=== PATIENT | male | born 1945 | race Hispanic/Latino ===

== ENCOUNTER 2017-10-18 10:39 | Observation (INO) | payer OTHER ==
--- OUTSIDE RECORDS SUMMARY | 2017-10-18 10:42 | XMS REPORT | Clinical Summary ---
:1945 Author Organization [facility] Address [address] [place] [address] Care Team Providers Name Role Phone Leon Hall MD Primary Care Provider Allergies No Known Allergies Current Medications Prescription Sig. Disp. Refills Start Date End Date Status clopidogrel (PLAVIX) 75 05/15/2016 Active mg tablet finasteride (PROSCAR) 5 04/28/2016 Active mg tablet metFORMIN (GLUCOPHAGE) 06/20/2016 Active 500 mg tablet metoprolol succinate XL 05/13/2016 Active (TOPROL-XL) 100 mg 24 hr tablet ACCU-CHEK SOFTCLIX TEST ONCE A DAY 99 04/12/2016 Active LANCETS lancets pravastatin (PRAVACHOL) 05/13/2016 Active 80 MG tablet tamsulosin (FLOMAX) 0.4 04/28/2016 Active mg capsule,extended release 24hr levoFLOXacin (LEVAQUIN) Take 500 mg by Active 500 MG tablet mouth daily. nitroglycerin (NITROSTAT) Place 0.4 mg under Active 0.4 MG SL tablet the tongue every 5 (five) minutes as needed for chest pain. traMADol (ULTRAM) 50 mg Take 50 mg by mouth Active tablet every 6 (six) hours as needed for moderate pain. Active Problems Problem Noted Date Coronary artery disease involving [place] coronary artery of [place] heart 07/14 without angina pectoris Essential hypertension 07/14/2016 History of coronary artery stent placement 07/14/2016 Family History Medical History Relation Name Comments Coronary artery disease Father Relation Name Status Comments Father Social History Tobacco Use Types Packs/Day Years Used Date Never Assessed Alcohol Use Drinks/Week oz/Week Comments No Sex Assigned at Date Recorded Not on file Last Filed Vital Signs Not on file Plan of Treatment Health Maintenance Due Date Last Done Comments COLON CANCER SCREENING 1993 SHINGRIX VACCINE (#1) 1993 ZOSTER VACCINE 2003 PNEUMOCOCCAL POLYSACCHARIDE VACCINE AGE 65 AND OVER 01/18/2008 PNEUMOCOCCAL-13 01/18/2008 INFLUENZA VACCINE 12/13/2017 Results Not on fileafter 10/17/2016 Insurance Payer Benefit Plan / Group Subscriber ID Type Phone Address [employer] MEDICARE HU[employer]NA MEDICARE PPO/PFFS/ERS [facility] xxxxxxxxx PPO Home: [id number] [facility] [phone] [place] [phone]
[2017-10-18] MEDS ORDERED: ALBUTEROL 2.5 MG/3 ML NEB SOL ONE (11:07)
[2017-10-18 11:30] LABS: Absolute Lymphocytes (CBC) 1.2 K/uL (0.7-4.9); Absolute Monocytes 0.8 K/uL (0.1-1.3); Absolute Neutrophil 5.5 K/uL (1.8-8.0); Basophils % 0.7 % (0-1.3); Eosinophils % 1.5 % (0-4.4); Hematocrit 41.2 % (39.6-49.0); Lymphocytes % 15.4 % (15.3-44.8); MCH 32.5 pg (27.0-35.0); MCV 94.6 fL (80-100); MPV 8.7 fL (7.6-11.3); Monocytes % 11.1 % (3.3-12.3); RBC Red Blood Cell Count 4.36 M/uL (4.33-5.43)
--- NOTE | 2017-10-18 11:57 | RAD REPORT ---
EXAM DESCRIPTION: Ellie Pa And Lat (2 Views)10/18/2017 11:44 am CLINICAL HISTORY: Cough COMPARISON: 2016 FINDINGS: Extensive bilateral interstitial lung opacities are without significant change having the appearance of pulmonary fibrosis. The lungs appear clear of acute infiltrate. The heart is normal size IMPRESSION: No acute abnormalities displayed
[2017-10-18 12:23] LABS: BUN Blood Urea Nitrogen 19 mg/dL (6-20); Bicarbonate 26 mEq/L (21-31); Glucose Level 133 mg/dL (65-120); Potassium 3.8 mEq/L (3.6-5.0); Sodium Level 136 mEq/L (135-145)
--- NOTE | 2017-10-18 13:28 | RAD REPORT ---
EXAM DESCRIPTION: CT - Chest For Pe Angio - 10/18/2017 1:18 pm CLINICAL HISTORY: sob COMPARISON: 2016 TECHNIQUE: Dynamically enhanced axial 3 mm thick images of the chest were obtained during administra tion of <100> mL Isovue 370 IV contrast. Coronal and oblique reconstruction images were generated and reviewed. Exam utilizes a protocol for optimal evaluation of pulmonary arterial tree. All CT scans are performed using dose optimization technique as appropriate and may include automated exposure control or mA/KV adjustment according to patient size. FINDINGS: A pulmonary embolus is not seen. A thoracic aortic aneurysm is not noted. A pleural effusion is not seen. A pericardial effusion is not seen. Extensive honeycombing is present throughout the right lung. Moderate pulmonary fibrosis within the l eft lung is seen. Mild ground-glass opacities are present within the lungs bilaterally. Fatty infiltration liver is seen IMPRESSION: Negative for a pulmonary embolism. Pulmonary fibrosis Mild ground-glass opacities indicative of a mild alveolitis
--- NOTE | 2017-10-18 13:36 | EKG ---
Test Date: 2017-10-18 Test Time: 11:18:17 Equipment Analyst: KAY MEASUREMENT RESULTS: Intervals: Rate: 76 MI: 158 QRSD: 142 QT: 412 QTc: 463 Ava: P: 55 MI: 158 QRS: -45 T: -6 INTERPRETIVE STATEMENTS: Normal sinus rhythm Right bundle branch block Left anterior fascicular block Bifascicular block Abnormal ECG Compared to ECG 11/19/2015 22:15:22 Sinus tachycardia no longer present Bifascicular block still present Electronically Signed On 10-18-17 13:36:03 CDT by Linwood Henry
--- NOTE | 2017-10-18 14:13 | ER ---
Nurse's Notes [facility] Name: Grzegorz Long Age: 72 yrs Sex: Male : 1945 Arrival Date: 10/18/2017 Time: 10:44 Bed 7 Private MD: Leon Hall V Diagnosis: Dyspnea, unspecified;Alveolitis;Hypoxemia Presentation: 10/18 10:50 Presenting complaint: Patient states: Flu like symptoms since Monday. Transition of aj care: patient was not received from another setting of care. Onset of symptoms was October 14, 2017. Risk Assessment: Do you want to hurt yourself or someone else? Patient reports no desire to harm self or others. Care prior to arrival: None. 10:50 Method Of Arrival: Ambulatory aj 10:50 Acuity: DANN 3 aj Triage Assessment: 10:51 General: Appears in no apparent distress. comfortable, Behavior is calm, cooperative, aj appropriate for age. Pain: Denies pain. EENT: Reports nasal congestion nasal discharge. Neuro: Level of Consciousness is awake, alert, obeys commands, Oriented to person, place, time, situation, Appropriate for age. Respiratory: Reports shortness of breath cough that is Airway is patent Respiratory effort is even, unlabored, Respiratory pattern is symmetrical, tachypnea. Derm: Skin is intact, is healthy with good turgor, Skin is pink, warm \T\ dry. normal. Historical: - Allergies: 10:51 No Known Allergies; aj - Home Meds: 10:51 aspirin 81 mg Oral chew 1 tab once daily [Active]; Plavix 75 mg Oral tab 1 tab once aj daily [Active]; metformin 500 mg Oral tab 1 tab 2 times per day [Active]; pravastatin 80 mg Oral tab 1 tab once daily [Active]; Lopressor 100 mg Oral tab 1 tab once daily [Active]; - PMHx: 10:51 Diabetes - NIDDM; High Cholesterol; Hypertension; aj - PSHx: 10:51 Heart stents; aj - Immunization history:: Adult Immunizations up to date. - Social history:: Smoking status: Patient/guardian denies using tobacco. - Ebola Screening: : Patient negative for fever greater than or equal to 101.5 degrees Fahrenheit, and additional compatible Ebola Virus Disease symptoms Patient denies exposure to infectious person Patient denies travel to an Ebola-affected area in the 21 days before illness onset No symptoms or risks identified at this time. - Family history:: not pertinent. - Hospitalizations: : No recent hospitalization is reported. Screenin:30 Abuse screen: Denies threats or abuse. Denies injuries from another. Nutritional hb screening: No deficits noted. Tuberculosis screening: No symptoms or risk factors identified. Fall Risk Total Sood Fall Scale indicates Low Risk Score (25-44 pts). Fall prevention measures have been instituted. Side Rails Up X 2 Frequent Obs/Assesments occuring Family Present and informed to notify staff if they need to leave bedside As available Patient and Family Educated on Fall Prevention Program and strategies. Assessment: 11:00 General: Appears in no apparent distress. ill, Behavior is calm, cooperative. Pain: hb Denies pain. Neuro: Level of Consciousness is awake, alert, obeys commands, Oriented to person, place, time, situation. Cardiovascular: Heart tones S1 S2 present Capillary refill < 3 seconds Patient's skin is warm and dry. Respiratory: Reports shortness of breath cough that is non-productive, Airway is patent Trachea midline Respiratory effort is even, unlabored, Respiratory pattern is regular, symmetrical, Breath sounds are clear bilaterally. GI: No signs and/or symptoms were reported involving the gastrointestinal system. : No signs and/or symptoms were reported regarding the genitourinary system. EENT: No signs and/or symptoms were reported regarding the EENT system. Derm: No signs and/or symptoms reported regarding the dermatologic system. Skin is intact, is healthy with good turgor. Musculoskeletal: No signs and/or symptoms reported regarding the musculoskeletal system. 12:00 Reassessment: Patient appears in no apparent distress at this time. No changes from hb previously documented assessment. Patient and/or family updated on plan of care and expected duration. Pain level reassessed. Patient is alert, oriented x 3, equal unlabored respirations, skin warm/dry/pink. 13:00 Reassessment: Patient appears in no apparent distress at this time. No changes from hb previously documented assessment. Patient and/or family updated on plan of care and expected duration. Pain level reassessed. Patient is alert, oriented x 3, equal unlabored respirations, skin warm/dry/pink. 14:00 Reassessment: Patient appears in no apparent distress at this time. No changes from hb previously documented assessment. Patient and/or family updated on plan of care and expected duration. Pain level reassessed. Patient is alert, oriented x 3, equal unlabored respirations, skin warm/dry/pink. 15:00 Reassessment: Patient appears in no apparent distress at this time. No changes from hb previously documented assessment. Patient and/or family updated on plan of care and expected duration. Pain level reassessed. Patient is alert, oriented x 3, equal unlabored respirations, skin warm/dry/pink. 16:00 Reassessment: Patient appears in no apparent distress at this time. No changes from hb previously documented assessment. Patient and/or family updated on plan of care and expected duration. Pain level reassessed. Patient is alert, oriented x 3, equal unlabored respirations, skin warm/dry/pink. Vital Signs: 10:51 BP 116 / 68; Pulse 89; Resp 26; Temp 98.4; Pulse Ox 88% on R/A; Weight 77.11 kg; Height aj 5 ft. 6 in. (167.64 cm); 11:45 BP 117 / 67; Pulse 79; Resp 22; Pulse Ox 96% on 3 lpm NC; hb 12:48 BP 113 / 67; Pulse 87; Resp 21; Pulse Ox 96% on 3 lpm NC; hb 13:45 BP 114 / 61; Pulse 75; Resp 22; Pulse Ox 95% on 3 lpm NC; hb 14:33 BP 133 / 74; Pulse 83; Resp 23; Pulse Ox 97% on 3 lpm NC; hb 15:30 BP 115 / 72; Pulse 82; Resp 21; Pulse Ox 97% on 3 lpm NC; hb 16:25 BP 125 / 72; Pulse 81; Resp 22; Pulse Ox 99% on R/A; hb 10:51 Body Mass Index 27.44 (77.11 kg, 167.64 cm) aj ED Course: 10:44 Patient arrived in ED. sb2 10:44 Leon Hall MD is Private Physician. sb2 10:50 Triage completed. aj 10:51 Arm band placed on left wrist. Patient placed in waiting room, in a wheelchair, on aj oxygen, Patient notified of wait time. 10:54 Adam Tijerina MD is Attending Physician. rn 11:00 Patient has correct armband on for positive identification. Placed in gown. Bed in low hb position. Call light in reach. Side rails up X 1. 11:15 Initial lab(s) drawn, by me, sent to lab. First set of blood cultures drawn by me. 3 Inserted saline lock: 20 gauge in left antecubital area, using aseptic technique. Blood collected. 11:31 EKG done, by hospital laboratory technician. reviewed by Adam Tijerina MD. at1 11:34 Patient moved to radiology via wheelchair. jb2 11:39 XRAY Chest Pa And Lat (2 Views) In Process Unspecified. EDMS 11:39 X-ray completed. Patient tolerated procedure well. jb2 11:46 Patient moved back from radiology. jb2 12:08 Second set of blood cultures drawn by me, by venipuncture 23G to left ac. 3 12:11 Arthur Duncan, RN is Primary Nurse. saman 12:48 Radha Desouza, RN is Primary Nurse. hb 13:18 CT Chest For PE Angio In Process Unspecified. EDMS 13:18 CT completed. Patient tolerated procedure well. Patient moved to CT via stretcher. vr Patient moved back from CT. 14:12 Leon Hall MD is Hospitalizing Provider. rn 16:25 No provider procedures requiring assistance completed. Patient admitted, IV remains in hb place. Administered Medications: 11:10 Drug: Albuterol 2.5 mg Route: Inhalation; Outcome: 14:13 Decision to Hospitalize by Provider. rn 16:25 Admitted to Med/surg accompanied by nurse, room 413, with chart, Report called to ONEIL Majano 16:25 Condition: stable 16:25 Instructed on the need for admit, Demonstrated understanding of instructions. 16:33 Patient left the ED. Signatures: Dispatcher [employer] EDNH Valeria Ward, Ambrose Martinez RN 2 Adam Tijerina MD MD rn Davis, Victoria vr Valeria méndez, education specialist EKG Tat1 Radha Desouza RN RN hb Leal, Jah[place], [place] RN 3 Tonja Roberts2
--- NOTE | 2017-10-18 14:13 | EDPHYS ---
Physician Documentation [facility] Name: Grzegorz Long Age: 72 yrs Sex: Male : 1945 Arrival Date: 10/18/2017 Time: 10:44 Bed 7 Private MD: Leon Hall V ED Physician Adam Tijerina HPI: 10/18 11:30 This 72 yrs old Male presents to ER via Ambulatory with complaints of cough, rn sob, weak. 11:30 The patient has shortness of breath at rest, with light activity. Onset: The rn symptoms/episode began/occurred 3 day(s) ago. Duration: The symptoms are intermittent. The patient's shortness of breath is aggravated by exertion, light activity, talking, walking. Severity of symptoms: At their worst the symptoms were moderate in the emergency department the symptoms are unchanged. The patient has not experienced similar symptoms in the past. Reports went out of town, had a few days of diarrhea, began coughing with sob on exertion, no known lung problems, no oxygen at home, no fever, non-productive cough. . Historical: - Allergies: 10:51 No Known Allergies; aj - Home Meds: 10:51 aspirin 81 mg Oral chew 1 tab once daily [Active]; Plavix 75 mg Oral tab 1 tab once aj daily [Active]; metformin 500 mg Oral tab 1 tab 2 times per day [Active]; pravastatin 80 mg Oral tab 1 tab once daily [Active]; Lopressor 100 mg Oral tab 1 tab once daily [Active]; - PMHx: 10:51 Diabetes - NIDDM; High Cholesterol; Hypertension; aj - PSHx: 10:51 Heart stents; aj - Immunization history:: Adult Immunizations up to date. - Social history:: Smoking status: Patient/guardian denies using tobacco. - Ebola Screening: : Patient negative for fever greater than or equal to 101.5 degrees Fahrenheit, and additional compatible Ebola Virus Disease symptoms Patient denies exposure to infectious person Patient denies travel to an Ebola-affected area in the 21 days before illness onset No symptoms or risks identified at this time. - Family history:: not pertinent. - Hospitalizations: : No recent hospitalization is reported. ROS: 11:30 Constitutional: Negative for fever, and weight loss, Eyes: Negative for injury, pain, rn redness, and discharge, Neck: Negative for injury, pain, and swelling, Cardiovascular: Negative for chest pain, palpitations, and edema, Respiratory: + sob and cough Abdomen/GI: Negative for abdominal pain, nausea, vomiting, diarrhea, and constipation, Back: Negative for injury and pain, MS/Extremity: Negative for injury and deformity, Skin: Negative for injury, rash, and discoloration, Neuro: Negative for headache, numbness, tingling, and seizure. Exam: 11:30 Constitutional: This is a well developed, well nourished patient who is awake, alert, rn and in no acute distress. Head/Face: Normocephalic, atraumatic. Eyes: Pupils equal round and reactive to light, extra-ocular motions intact. Lids and lashes normal. Conjunctiva and sclera are non-icteric and not injected. Cornea within normal limits. Periorbital areas with no swelling, redness, or edema. ENT: no stridor Cardiovascular: Regular rate and rhythm with a normal S1 and S2. No gallops, murmurs, or rubs. Normal PMI, no JVD. No pulse deficits. Respiratory: + mild tachypnea, no wheezing Abdomen/GI: Soft, non-tender, with normal bowel sounds. No distension or tympany. No guarding or rebound. No evidence of tenderness throughout. MS/ Extremity: Pulses equal, no cyanosis. Neurovascular intact. Full, normal range of motion. Equal circumference. Neuro: Awake and alert, GCS 15, oriented to person, place, time, and situation. Cranial nerves II-XII grossly intact. Motor strength 5/5 in all extremities. Sensory grossly intact. Vital Signs: 10:51 BP 116 / 68; Pulse 89; Resp 26; Temp 98.4; Pulse Ox 88% on R/A; Weight 77.11 kg; Height aj 5 ft. 6 in. (167.64 cm); 11:45 BP 117 / 67; Pulse 79; Resp 22; Pulse Ox 96% on 3 lpm NC; hb 12:48 BP 113 / 67; Pulse 87; Resp 21; Pulse Ox 96% on 3 lpm NC; hb 13:45 BP 114 / 61; Pulse 75; Resp 22; Pulse Ox 95% on 3 lpm NC; hb 14:33 BP 133 / 74; Pulse 83; Resp 23; Pulse Ox 97% on 3 lpm NC; hb 15:30 BP 115 / 72; Pulse 82; Resp 21; Pulse Ox 97% on 3 lpm NC; hb 16:25 BP 125 / 72; Pulse 81; Resp 22; Pulse Ox 99% on R/A; hb 10:51 Body Mass Index 27.44 (77.11 kg, 167.64 cm) aj MDM: 10:54 Patient medically screened. rn 14:11 Differential diagnosis: pneumonia, pulmonary edema, reactive airway disease. Data rn reviewed: vital signs, nurses notes, lab test result(s), radiologic studies, CT scan, plain films, and as a result, I will admit patient. Counseling: I had a detailed discussion with the patient and/or guardian regarding: the historical points, exam findings, and any diagnostic results supporting the discharge/admit diagnosis, lab results, radiology results, the need for further work-up and treatment in the hospital. Response to treatment: the patient's symptoms have mildly improved after treatment, and as a result, I will admit patient. Admission orders: after a detailed discussion of the patient's condition and case, the admit orders are written by me. ED course: Pt with oxygen requirement and still with tachypnea, will admit to Dr. Hall. . 10/18 11:02 Order name: Blood Culture Adult (2) rn 10/18 11:02 Order name: BMP; Complete Time: 12:24 rn 10/18 11:02 Order name: XRAY Chest Pa And Lat (2 Views); Complete Time: 11:59 rn 10/18 11:02 Order name: BNP; Complete Time: 11:52 rn 10/18 11:02 Order name: CBC with Diff; Complete Time: 11:52 rn 10/18 11:02 Order name: Procalcitonin; Complete Time: 12:24 rn 10/18 11:02 Order name: EKG; Complete Time: 11:03 rn 10/18 11:02 Order name: Cardiac monitoring; Complete Time: 11:20 rn 10/18 11:02 Order name: EKG - Nurse/Tech; Complete Time: 11:19 rn 10/18 11:02 Order name: IV Saline Lock; Complete Time: 11:10 rn 10/18 11:02 Order name: Labs collected and sent; Complete Time: 11:19 rn 10/18 11:02 Order name: O2 Per Protocol; Complete Time: 11:10 rn 10/18 12:52 Order name: CT Chest For PE Angio; Complete Time: 13:29 rn 10/18 11:02 Order name: O2 Sat Monitoring; Complete Time: 11:10 rn Administered Medications: 11:10 Drug: Albuterol 2.5 mg Route: Inhalation; hb Disposition: 10/18/17 14:13 Hospitalization ordered by Leon Hall for Inpatient Admission. Preliminary diagnosis are Dyspnea, unspecified, Alveolitis, Hypoxemia. - Bed requested for Telemetry/MedSurg (Inpatient). - Status is Inpatient Admission. hb - Condition is Stable. - Problem is new. - Symptoms have improved. UTI on Admission? No Signatures: Dispatcher [employer] EDMini John RN Valeria Solis RN RN aj Nieto, Roman, MD MD rn Baxter, Heather, RN RN Corrections: (The following items were deleted from the chart) 15:03 14:13 Hospitalization Ordered by Leon Hall MD for Inpatient Admission. Preliminary dw diagnosis is Dyspnea, unspecified; Alveolitis; Hypoxemia. Bed requested for Telemetry/MedSurg (Inpatient). Status is Inpatient Admission. Condition is Stable. Problem is new. Symptoms have improved. UTI on Admission? No. rn 16:33 15:03 10/18/2017 14:13 Hospitalization Ordered by Leon Hall MD for Inpatient hb Admission. Preliminary diagnosis is Dyspnea, unspecified; Alveolitis; Hypoxemia. Bed requested for Telemetry/MedSurg (Inpatient). Status is Inpatient Admission. Condition is Stable. Problem is new. Symptoms have improved. UTI on Admission? No. dw
[2017-10-18] MEDS ORDERED: ONDANSETRON 4 MG/2 ML VIAL IV PRN (17:07)
[2017-10-18 17:43] VITALS: BMI 27.4
[2017-10-18] MEDS: METHYLPREDNISOLONE 40 MG INJ IV SCH ×2 (17:51→23:46)
[2017-10-18] MEDS: CEFTRIAXONE/SWI 1gm 1 GM/10 ML SYR IVP SCH (17:51)
[2017-10-18] MEDS ORDERED: GLUCAGON 1 MG/VIAL IM PRN (19:26)
[2017-10-18] MEDS ORDERED: D50W 25 GM/50 ML SYRINGE IV PRN (19:26)
[2017-10-18] MEDS: ALBUTEROL 2.5 MG/3 ML NEB SOL NEB SCH (19:35)
[2017-10-18] MEDS: INSULIN -REGULAR HUMAN 50 UNIT/0.5 ML ML SQ SCH (21:00)
[2017-10-19] MEDS: ALBUTEROL 2.5 MG/3 ML NEB SOL NEB SCH ×2 (02:08→07:35)
[2017-10-19] MEDS: METHYLPREDNISOLONE 40 MG INJ IV SCH ×2 (06:14→11:37)
[2017-10-19] MEDS: INSULIN -REGULAR HUMAN 50 UNIT/0.5 ML ML SQ SCH ×2 (07:30→11:37)
[2017-10-19] MEDS ORDERED: METFORMIN HCL 500 MG TAB PO SCH (08:00)
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
[2017-10-19] MEDS: CEFTRIAXONE/SWI 1gm 1 GM/10 ML SYR IVP SCH (08:37)
[2017-10-19] MEDS ORDERED: ATORVASTATIN 10 MG TAB PO SCH (09:00)
[2017-10-19] MEDS ORDERED: FINASTERIDE 5 MG TAB PO SCH (09:00)
[2017-10-19] MEDS ORDERED: CLOPIDOGREL 75 MG TABLET PO SCH (09:00)
[2017-10-19] MEDS ORDERED: ASPIRIN 81 MG CHEWABLE TABLET PO SCH (09:00)
[2017-10-19] MEDS ORDERED: METOPROLOL TAR 50 MG TAB PO SCH (09:00)
[2017-10-19 12:06] VITALS: BP 139/66; TEMP 98.2
[2017-10-19 12:31] VITALS: O2SAT 100
--- NOTE | 2017-10-19 13:07 | P.SSS ---
Patient History Date of Service: 10/19/17 Reason for admission: NAUSE AND VOMITING History of Present Illness: MR. MONTESINOS IS A DIABETIC WITH CAD AND PULMONARY FIBROSIS. HE TOLD ME THAT HE ATE OLD FOOD AFTER 3 DAYS ON TABLE IN [place]. GOT SICK WITH NAUSEA AND VOMITING AND HE IS WELL NOW. IT SEEMS LIKE ALL 3 DOCTORS GOT DIFF STORY. ER MD CALLED ME ABOUT DYSPNEA AND CT SCAN. DR. LINO WRITES ABOUT CHEST PAIN. IN ANY CASE HE IS WELL NOW BACK TO BASELINE. Allergies No Known Allergies Allergy (Verified 10/18/17 17:17) Home Medications: Aspirin Chewable [Aspirin Chewable*] 81 mg PO DAILY 12/12/14 Metformin HCl [Glucophage*] 500 mg PO BIDWM 12/12/14 Metoprolol Tartrate [Lopressor*] 100 mg PO DAILY 12/12/14 Pravastatin [Pravachol*] 80 mg PO DAILY 12/12/14 Clopidogrel Bisulfate [Plavix] 75 mg PO DAILY 11/21/15 Finasteride [Proscar] 5 mg PO DAILY 10/18/17 Tamsulosin [Flomax] 0.4 mg PO BEDTIME 10/18/17 - Past Medical/Surgical History Has patient received pneumonia vaccine in the past: Yes Diabetic: Yes -: High Cholesteral -: HTN -: Arthritis -: diabetes -: prostate problems -: Pulmonary fibrosis -: Heart Stents -: Benign neck tumer - Family History Brother -: Hypertension, Liver disease Sister -: Hypertension Father -: Heart disease, Stroke Mother -: Cancer - Social History Smoking Status: Former smoker Alcohol use: No CD- Drugs: No Caffeine use: Yes Place of Residence: Home Review of Systems 10-point ROS is otherwise unremarkable Physical Examination - Vital Signs Temperature: 98.2 F Blood Pressure: 139/66 Pulse: 96 Respirations: 16 Pulse Ox (%): 95 - Physical Exam General: Alert, In no apparent distress HEENT: Atraumatic, PERRLA, Mucous membr. moist/pink, EOMI, Sclerae nonicteric Neck: Supple, 2+ carotid pulse no bruit, No LAD, Without JVD or thyroid abnormality Respiratory: Clear to auscultation bilaterally, Normal air movement Cardiovascular: Regular rate/rhythm, Normal S1 S2 Gastrointestinal: Normal bowel sounds, No tenderness Musculoskeletal: No tenderness Integumentary: No rashes Neurological: Normal gait, Normal speech, Normal strength at 5/5 x4 extr, Normal tone, Normal affect Lymphatics: No axilla or inguinal lymphadenopathy - Diagnosis (Problem(s)) (1) Food poisoning Status: Acute Plan: CLINICALLY WELL DC HOME STABLE. NO DYSPNEA. Qualifiers: Encounter type: initial encounter (2) Pulmonary fibrosis Status: Chronic Plan: STABLE, NO CHANGES, NO SS ON DAILY BASIS. - Disposition Condition: GOOD
[2017-10-19] MEDS ORDERED: TAMSULOSIN 0.4 MG SR CAP PO SCH (21:00)
== END 2017-10-19 11:56 | disposition home or self-care (01) ==
LOC: ER 10:39 → ERHOLD 14:14 → INTOOBSV 14:14 → 4TH 16:03
PROVIDERS: ADMIT Internal Medicine; ATTEND Internal Medicine
DX: T62.94XA Toxic effect of unspecified noxious substance eaten as food, undetermined, initial encounter (principal); R11.2 Nausea with vomiting, unspecified; Y92.009 Unspecified place in unspecified non-institutional (private) residence as the place of occurrence of the external cause; J84.10 Pulmonary fibrosis, unspecified; E11.9 Type 2 diabetes mellitus without complications; I25.10 Atherosclerotic heart disease of native coronary artery without angina pectoris; Z95.5 Presence of coronary angioplasty implant and graft; Z79.82 Long term (current) use of aspirin; Z87.891 Personal history of nicotine dependence
CPT/HCPCS: 36415; 71046; 71275; 80048; 82962 ×3; 83880; 84145; 85025; 87040 ×2; 93005; 94640; 99285; G0378 ×2; J0696 ×2; J2920 ×4; Q9967

== ENCOUNTER 2018-06-16 13:30 | Inpatient (IN) | payer OTHER ==
--- OUTSIDE RECORDS SUMMARY | 2018-06-16 13:32 | XMS REPORT | Clinical Summary ---
:1945 Author Organization [facility] Address [address] [place] [address] Care Team Providers Name Role Phone Leon Hall MD Primary Care Provider Allergies No Known Allergies Medications Medication Sig Dispensed Refills Start Date End Date Status clopidogrel (PLAVIX) 75 0 05/15/2016 Active mg tablet finasteride (PROSCAR) 5 0 04/28/2016 Active mg tablet metFORMIN (GLUCOPHAGE) 0 06/20/2016 Active 500 mg tablet metoprolol succinate XL 0 05/13/2016 Active (TOPROL-XL) 100 mg 24 hr tablet ACCU-CHEK SOFTCLIX TEST ONCE A DAY 99 04/12/2016 Active LANCETS lancets pravastatin (PRAVACHOL) 0 05/13/2016 Active 80 MG tablet tamsulosin (FLOMAX) 0.4 0 04/28/2016 Active mg capsule,extended release 24hr levoFLOXacin (LEVAQUIN) Take 500 mg by 0 Active 500 MG tablet mouth daily. nitroglycerin Place 0.4 mg 0 Active (NITROSTAT) 0.4 MG SL under the tongue tablet every 5 (five) minutes as needed for chest pain. traMADol (ULTRAM) 50 mg Take 50 mg by 0 Active tablet mouth every 6 (six) hours as needed for moderate pain. Active Problems Problem Noted Date Coronary artery disease involving squaxin coronary artery of squaxin heart 07/14 without angina pectoris Essential hypertension 07/14/2016 History of coronary artery stent placement 07/14/2016 Family History Medical History Relation Name Comments Coronary artery disease Father Relation Name Status Comments Father Social History Tobacco Use Types Packs/Day Years Used Date Never Assessed Alcohol Use Drinks/Week oz/Week Comments No Sex Assigned at Date Recorded Not on file Job Start Date Occupation Industry Not on file Not on file Not on file Travel History Travel Start Travel End No recent travel history available. Last Filed Vital Signs Not on file Plan of Treatment Health Maintenance Due Date Last Done Comments COLON CANCER SCREENING 1993 SHINGLES VACCINES (1 of 2) 1993 PNEUMOCOCCAL POLYSACCHARIDE VACCINE AGE 65 AND OVER 01/18/2008 PNEUMOCOCCAL-13 01/18/2008 INFLUENZA VACCINE 12/13/2017 Results Not on fileafter 06/15/2017 Insurance Payer Benefit Plan / Group Subscriber ID Type Phone Address [employer] MED[employer]ARE [employer] MEDICARE PPO/PFFS/[facility] xxxxxxxxx PPO Advance Directives Patient has advance care planning documents on file. For more information, please contact:Barrie Castellano[address] [place] [id number]
--- OUTSIDE RECORDS SUMMARY | 2018-06-16 13:33 | XMS REPORT | Continuity of Care Document ---
:1945 Author Organization Interface Problems Problem Status Onset Classification Date Comments Source Date Reported LABS, F/U Active 05/24/19 [place] [address] [facility] FOLLOW UP/LABS Active 04/07/20 [place] [address] [facility] BEDDED Active 02/13/20 [facility] OUTPATIENT/ Medical IMAGED GUIDED Center TRANSAT HCC Active 01/31/[address] OUTPATIENT/Y 90 Active 01/20/20 [facility] PROCEDURE OF [address] [place] [address] HEPATOCELLU Center NEW PT CONSULT- Active 12/28/19 [facility] R26.2 - Active 05/11/20 [facility] "DIFFICULTY IN [address] [facility], NOT ELS" High blood Active Problem 06/04/2018 [facility] pressure [place], [facility] Brian Borderline Active Problem 06/04/2018 [facility] diabetes [place], [facility] Brian Knee pain, Resolved Problem 06/15/2018 [facility] bilateral Brian,Mis franko [facility] Asbestosis Active Problem 06/15/2018 [facility] Brian,Mis franko Neuro BPH (<span Active Problem 06/15/2018 [facility] ID="[id number] Brian,[facility] ">Confirmed</spa franko Neuro n>) Chest pain Resolved Problem 06/15/2018 [facility] Brian,Mis franko Neuro CAD (<span Active Problem 06/15/2018 [facility] ID="[id number] Brian,Mis ">Confirmed</spa franko Neuro n>) Prostate Resolved Problem 06/15/2018 [facility] irregularity Brian,Mis frakno Neuro Chronic GERD Active Problem 06/15/2018 [facility] Brian,Mis franko Neuro High blood Active Problem 06/15/2018 [facility] cholesterol Brian,Mis franko Neuro High blood Active Problem 06/15/2018 [facility] pressure [place],Nd raghu Neuro Borderline Active Problem 06/15/2018 [facility] diabetes [place],Nd raghu Neuro Liver mass Active Problem 06/15/2018 [facility] [place],Mis franko Neuro Myocardial Resolved Problem 06/15/2018 [facility] infarction Kristi Torres [facility] Medications Medication Details Route Status Patient Ordering Order Source Instructions Provider Date Allergies, Adverse Reactions, Alerts Substance Category Reaction Severity Reaction Status Date Comments Source type Reported Immunizations Immunization Date Given Site Status Last Updated Comments Source Results Order Name Results Value Reference Date Interpretation Comments Source Range Spine Spine EXAM: MRI LUMBAR SPINE WITH AND WITHOUT CONTRAST 06/02 - [facility] lumbar /2018 - Brian w/wo w/wo This report was dictated by a Silk Examiner/Fellow/ Physician Care Support Representative. I have personally contrast contrast reviewed the images as well as the interpretation and agree with the findings. MRI MRI DATE: 06/02/2018 at 0749 hours Read by: Nilo Medina MD Resident/Fellow/Physician Care Support Representative: Nilo Medina MD Dictated Date/time: 06/04/18 09:07 Electronically Signed by: Hollie Almonte MD 06/04/18 14:58 FINAL REPORT INDICATION: " - C22.0 Liver cell carcinoma" ADDITIONAL INFORMATION: Low back pain, bilateral leg pain through the extremity to the bottom of the feet. COMPARISON: CT abdomen on 04/02/[address] abdomen/pelvis on 11/03/2017. TECHNIQUE: Multiplanar, multisequence MR imaging of the lumbar spine with and without contrast. IV contrast: 15 mL of Dotarem. FINDINGS: The inferior most lumbar type vertebral body is referred to L5. There is a 5 mm T1/T2 hypointense focus near the inferior endplate of L5 which demonstrates enhancement on postcontrast imaging. Vertebral body heights are well maintained. The marrow signal is within normal limits. No focal osseous lesion. The conus medullaris is normal in size and signal, and terminates at L1- L2. The included retroperitoneal structures are unremarkable. The paraspinal soft tissues are normal. Evaluation of the individual levels: T12-L1: Diffuse disc bulge with mild flattening of the ventral thecal sac. No neural foraminal stenosis. L1-L2: Asymmetric disc bulge at the ventral disc and slightly into the bilateral foraminal zone without nerve or compression. No mass effect thecal sac at this level. L2-L3: Diffuse disc bulge mild narrowing of the thecal sac. No exiting nerve root or cauda equina compression. A Schmorl's nodes seen in the superior endplate of L3. Facet arthropathy is present. L3-L4: Diffuse disc bulge results in moderate stenosis of the thecal sac and clumping of the cauda equina nerve roots. Moderate bilateral neuroforaminal narrowing, slightly worse on the left. The disc a buts the exiting left L3 nerve root without impingement. No mass effect on the exiting right L3 nerve root. Facet arthropathy is present. L4-L5: There is severe facet arthropathy resulting in grade 2 degenerative anterolisthesis and uncovering of the disc with superimposed diffuse disc bulge , obliterating the CSF space. There is severe ca uda equina compression and flattening of the bilateral exiting L4 nerve roots, worse on the left. L5-S1: Diffuse disc bulge with moderate narrowing of the thecal sac and abutment of the traversing S1 nerve roots. No mass effect on the exiting L5 nerve roots. IMPRESSION: 1. Severe facet arthropathy at L4-L5 results in grade 2 degenerative anterolisthesis as well as severe spinal canal and neuroforaminal stenosis, with mass effect on the cauda equina nerve roots and both exiting L4 nerve roots. 2. A 5 mm enhancing focus near the inferior endplate of L5 is indeterminate but favored to be of benign etiology, with malignancy felt to be a less likely possibility. A bone scan can be considered for further evaluation. Abdomen Abdomen EXAM: ACUTE ABDOMINAL SERIES WITH CHEST 1 VIEW 05/04 [facility] acute acute /2017 - [place] series w series w chest 1 chest 1 view DX view DX DATE: 05/04/2018 12:54 OCEANOGRAPHER PHYSICAL Read by: Aaron Tran MD Dictated Date/time: 05/04/18 13:30 Electronically Signed by: Aaron Tran MD 05/04/18 13:35 FINAL REPORT INDICATION: - 73 y/o M with h/o constipation, pls r/o obstruction,K59.00 Constipation, unspecified ADDITIONAL INFORMATION: None. COMPARISON: CT abdomen 04/02/2018 TECHNIQUE: Frontal upright and supine images of the abdomen and 1 view of the chest. Total images=4. FINDINGS: Lines and tubes: None. Lower thorax: Low lung volumes with accentuated vascular markings and bibasilar opacities which may represent atelectasis/aspiration with underlying fibrotic changes of the lung bases better seen on prior CT exam. Bowel: No definite free air beneath the hemidiaphragm in the upright image. Gaseous distention of the colon without significant dilatation. No distal colonic dilatation. Moderate stool within the ascending colon. Small amount of rectal gas. Nondilated small bowel gas pattern. Solid organs: Hepatic metastases better seen on prior CT exam. Calcifications: No abnormal calcifications found. Bones: Degenerative changes of the thoracolumbar spine. Vascular calcifications. IMPRESSION: 1. No obstructive bowel gas pattern. 2. Moderate stool burden. Abd Liver Abd Liver EXAM: CT ABDOMEN WITHOUT AND WITH CONTRAST 04/02 - [facility] Protocol Protocol /2017 - Brian w/wo IV w/wo IV contrast contrast CT CT DATE: 04/02/2018 at 1238 hours Read by: Major Anthony MD Dictated Date/time: 04/02/18 14:40 Electronically Signed by: Major Anthony MD 04/02/18 15:04 FINAL REPORT INDICATION: 73-year-old with hepatocellular carcinoma status post Y-90 treatment ADDITIONAL INFORMATION: None. COMPARISON: 11/03/2017 at 1234 hours. TECHNIQUE: Volumetric CT abdomen is acquired both prior to and following intravenous contrast, in precontrast, arterial, portal venous and delayed phases of enhancement, per the dynamic liver protocol. Axial, sagittal and coronal images are provided. IV contrast: 150 mL of Omnipaque 300 Enteric contrast: None. DLP: 2650.11 mGy-cm FINDINGS: Lines, tubes and hardware: None. Lower thorax: * Coronary artery calcifications. * Unchanged bibasilar fibrosis. Liver: Craniocaudal length: 17.3 cm. Density: Normal. Surface: Normal. Hepatic masses: * Irregularly-shaped right hepatic lobe tumor involving segments 7 and 8 demonstrates areas of necrosis, as well as areas of persistent enhancement/ viable tumor. As a whole, the involved area is 7.1 x 6.7 x 6.6 cm, previously 5.8 x 5.7 x 4.4 cm when measured in similar fashion. Largest focus of tumoral enhancement is approximately 6.8 x 4.6 x 4.3 cm (, 601/62). Pseudocapsular enhancement is also noted on delayed images. * Nonspecific 0.6 cm focus of arterial hyperenhancement is identified in the posterior aspect of segment 6 without associated washout. * Calcified granuloma. Non-enhancing/cystic hepatic lesions: None. Hepatic vessels: Hepatic arterial anatomy: Conventional. Portal vein: Patent. Caliber: 1.4 cm Portosystemic collaterals: None. Hepatic, splenic and superior mesenteric veins, and IVC: Patent. Biliary tree: No intra- or extrahepatic biliary ductal dilation. Gallbladder: Gallstones identified. No inflammation. Pancreas: Unchanged pancreatic atrophy. Spleen: * Normal size. * Unchanged granulomata. Adrenals: Normal. Kidneys and ureters: Normal. Gastrointestinal tract: Right paraesophageal mass is difficult to compare as it is incompletely visualized, but appears similar to prior exam. Stomach: Normal. Small bowel: Normal. Colon: Normal. Peritoneum, mesentery and retroperitoneum: No free air, ascites or loculated fluid. Lymph nodes: Regional lymph nodes are unchanged. Extrahepatic vasculature: Aorta and branches: Normal. IVC and veins: Normal. Bones: No acute abnormality. Soft tissues: Normal. IMPRESSION: 1. Increased size of right hepatic mass with areas of necrosis and areas of persistent viable tumor, as detailed above. LR-TR (viable). 2. Likely unchanged right paraesophageal mass. 3. Unchanged regional lymph nodes. 4. Cholelithiasis. Liver Liver EXAM: [facility] Static 02/16 [facility] SPECT [facility] SPECT - Medical EXAM: [facility] SPECT[facility]CT Center Read by: Diana Meza MD Dictated Date/time: 02/16/18 15:05 DATE: 02/16/2018 Electronically Signed by: Diana Meza MD 02/16/18 15:27 FINAL REPORT INDICATION: Hepatocellular carcinoma. COMPARISON: Liver SPECT 02/01/2018 TECHNIQUE: Yttrium-90 Thera-spheres were administered selectively into the right and left hepatic artery branches supplying the tumor mass in the right liver. A total dose of 2.34 GBq was administered through the hepatic arterial catheter aseptically without complications. This was followed by the acquisition of static images of the abdomen as well as SPECT images of the liver. FINDINGS: Intense tracer accumulation in the tumor mass in the right liver. There is no evidence of extrahepatic organ perfusion and no significant shunting to the lungs. IMPRESSION: Good localization of Yttrium 90 Thera-spheres in the right hepatic tumor mass with no evidence of extrahepatic organ perfusion or lung shunting. Radiorx TX Radiorx TX EXAM: [facility] Radiopharmaceutical therapy, intra-arterial particulate 02/16 [facility] Intra Intra - Medical Arterial Arterial Center NM NM DATE: 02/16/2018 12:00 PM CDT Read by: Diana Meza MD Dictated Date/time: 02/16/18 15:18 Electronically Signed by: iDana Meza MD 02/16/18 15:26 FINAL REPORT INDICATION: - Y-90. Hepatocellular carcinoma. COMPARISON: Liver SPECT 02/01/2018 and 02/16/2018. TECHNIQUE: Yttrium-90 Thera-spheres were administered selectively into the both right and left hepatic artery branches supplying the tumor mass the liver. The dose of 0.77 GBq was administered via left hepatic art gonzález and 1.57 GBq in the right hepatic artery. A total dose of 2.34 GBq was administered, without immediate complication. FINDINGS: Intra-arterial administration of Yttrium 90 Thera-spheres in the right lobe of the liver. IMPRESSION: Successful intra-arterial administration of 1.57 GBq Yttrium 90 Thera- spheres to the tumor mass in the right liver. Angiogram Angiogram PROCEDURE: Hepatic radioembolization - Radioisotope administration 02/16 [facility] visceral visceral - Medical artery artery This report was dictated by a Silk Examiner/ Fellow. I have personally reviewed the images as Center initial VR initial VR well as the Resident's interpretation and agree with the findings. Procedural Personnel Read by: Ismael eKlly MD Resident: Ismael Kelly MD Dictated Date/time: 02/16/18 13:41 Attending physician(s): Damian Stevens MD Electronically Signed by : Damian Steevns MD 02/19/18 15:12 FINAL REPORT Fellow physician(s): Robin PIZARRO Resident physician(s): None Advanced practice provider(s): None Authorized user: Same as attending physician above Pre-procedure diagnosis: Hepatocellular carcinoma Post-procedure diagnosis: Same Indication: Radiation segmentectomy for tumor control Additional clinical history: None Vascular invasion: None Complications: No immediate complications. IMPRESSION: Hepatic angiography demonstrates was applied through the replaced left hepatic artery. All of the tumor was visualized through injection of the segment VII branch of the right hepatic artery. Y 90 treatment was performed through this vessel. Plan: To nuclear medicine for SPECT imaging. PROCEDURE SUMMARY: - Arterial access with ultrasound guidance - Aortography: Not performed - Visceral angiography: Celiac angiography - Selective hepatic angiography: Proper hepatic angiography - Superselective hepatic angiography: Performed as described below - Radioisotope administration as described below - Additional procedure(s): Cone-beam CT PROCEDURE DETAILS: Pre-procedure Consent: Informed consent for the procedure including risks, benefits and alternatives was obtained and time-out was performed prior to the procedure. Preparation: The site was prepared and draped using maximal sterile barrier technique including cutaneous antisepsis. Anesthesia/sedation Level of anesthesia/sedation: Moderate sedation (conscious sedation) Anesthesia/sedation administered by: Independent trained observer under attending supervision with continuous monitoring of the patient's level of consciousness and physiologic status Total intra-service sedation time (minutes): 90 Access Local anesthesia was administered. The vessel was sonographically evaluated and judged to be patent. Real time ultrasound was used to visualize needle entry into the vessel and a permanent image was stored. A 5-Turkmen sheath was placed. Vessel accessed: Right common femoral artery Access technique: Micropuncture set with 21 gauge needle Selective angiography The hepatic arterial system was catheterized using Thomas catheter. Variant anatomy: Replaced left hepatic artery as identified on prior exam. Vessel catheterized: Left gastric artery/left hepatic artery Findings: No supply to the tumor in the right hepatic lobe on angiography and cone beam CT Vessel catheterized: Right hepatic artery segment VII branch Findings: Arterial supply the tumor in segment VII Advanced imaging Localized intra-operative cone-beam CT was performed with contrast prior to embolization. Images were transmitted to an independent workstation for 3D rendering and image review under concurrent physician supervision. Indication for advanced imaging: Determine vascular anatomy and/or tumor supply Findings: As described above Preparatory vessel embolization Catheter position for embolization: None Embolization intent: None Embolic(s): None Angiographic endpoint: None Radioisotope administration Radioisotope: Yttrium-90 glass microspheres Catheter position for administration #1: Right hepatic lobe segment VII - Administration endpoint: Complete delivery of dose - Angiographic endpoint: Not applicable Catheter position for administration #2: Right hepatic lobe segment VII - Administration endpoint: Complete delivery of dose - Angiographic endpoint: Not applicable Completion angiography Vessel catheterized: None Findings: None Closure Access site angiography performed: Yes Findings: Patent vessel with appropriate access level Arterial closure technique: Mynx Hemostasis achieved from closure technique: Yes Duration of manual compression (minutes): 3 Contrast Contrast agent: Omnipaque 300 Contrast volume (mL): 100 Radiation Dose Fluoroscopy time (minutes): 11.2 Reference air kerma (mGy): 992.6 Kerma area product (uGy-m2): 66543 Additional Details Additional description of procedure: None Equipment details: None Specimens removed: None Estimated blood loss (mL): Less than 10 Standardized report: [id number] Attestation Signer name: Damian Stevens MD I attest that I was present for the entire procedure. I reviewed the stored images and agree with the report as written. Liver Liver EXAM: [facility] Perfusion Imaging Quantitative 02/01 [facility] SPECT [place] SPECT [facility] - Medical EXAM: [facility] Liver SPECT Center Read by: Diana Meza MD Dictated Date/time: 02/02/18 12:13 DATE: 02/01/2018 11:35 AM CDT Electronically Signed by: Diana Meza MD 02/02/18 12:23 FINAL REPORT INDICATION: Liver Cancer - HACP Placement COMPARISON: CT abdomen and pelvis 11/03/2017 TECHNIQUE: After administration of 5.2 mCi of Tc 99m MAA through the hepatic arterial catheter, pulmonary quantitative imaging of the lungs and static images as well as SPECT of the liver are obtained. FINDINGS: Irregular tracer uptake is seen in the right lobe of the liver suggestive of catheter placement in the right hepatic artery. There appears to be good radiotracer localization within the tumor. There is no evidence of extrahepatic organ perfusion in the abdomen or significant lung shunting. The calculated lung shunt is 5.6%. IMPRESSION: 1. There is good perfusion to the right lobe of the liver with no evidence of extrahepatic organ perfusion in the abdomen . 2. The calculated lung shunting is 5.6%. Lung scan Lung scan EXAM: [facility] Quantitative - [facility] perfusion perfusion /2017 - Medical Quant Diff Quant Diff EXAM: [facility] Liver SPECT Center FX VA FX VA Read by: Diana Meza MD Dictated Date/time: 02/02/18 12:13 DATE: 02/01/2018 11:35 AM CDT Electronically Signed by: Diana Meza MD 02/02/18 12:23 FINAL REPORT INDICATION: Liver Cancer - HACP Placement COMPARISON: CT abdomen and pelvis 11/03/2017 TECHNIQUE: After administration of 5.2 mCi of Tc 99m MAA through the hepatic arterial catheter, pulmonary quantitative imaging of the lungs and static images as well as SPECT of the liver are obtained. FINDINGS: Irregular tracer uptake is seen in the right lobe of the liver suggestive of catheter placement in the right hepatic artery. There appears to be good radiotracer localization within the tumor. There is no evidence of extrahepatic organ perfusion in the abdomen or significant lung shunting. The calculated lung shunt is 5.6%. IMPRESSION: 1. There is good perfusion to the right lobe of the liver with no evidence of extrahepatic organ perfusion in the abdomen . 2. The calculated lung shunting is 5.6%. Angiogram Angiogram EXAM: VIR Y 90 mapping 02/01 - [facility] visceral visceral /2017 - Medical artery artery DATE: 02/01/2018 11:07 AM CDT This report was dictated by a Silk Examiner/Fellow. I have personally reviewed the images as Center initial VR initial VR well as the Resident's interpretation and agree with the findings. PROCEDURE(S) PERFORMED: Read by: Ismael Kelly MD Resident: Ismael Kelly MD Dictated Date/time: 02/01/18 14:42 INDICATION: 73 years old Male with HCC. Electronically Signed by: Damian Stevens MD 02/02/18 08:27 FINAL REPORT FACULTY: Damian Stevens MD, Dudley Saini MD RESIDENT/FELLOW/TOOL RADIAL DRILL PRESS SET UP OPERATOR: Robin SUPERVISION: Level 1 Direct supervision: The supervising provider is physically present with the patient during the procedure. ANESTHESIA/SEDATION: Moderate sedation PHYSICIAN SUPERVISED ANESTHESIA TIME: 30 min SPECIMEN: None DRAINS: None ESTIMATED BLOOD LOSS: Less than 10 cc COMPLICATIONS: None immediate FLUOROSCOPY TIME: 7.1 min RADIATION DOSE: 1591 mGy PROCEDURE: After right gastric artery risks, benefits, and alternatives of the procedure were explained to the patient, verbal and written consent was obtained and a copy was placed on the chart. Patient was broug ht to the angiography suite and a time-out was performed. IV Versed and Fentanyl were titrated for moderate sedation by a trained observer. Patient was then prepped and draped in the usual sterile fashi on. After giving 1% lidocaine local anesthesia, the right common femoral artery was accessed with a micropuncture set. A 5 Turkmen sheath was placed. The sheath was then connected to a pressurized heparinized saline infusion. Over a guidewire, a 5-Turkmen SOS catheter was introduced. Selective catheterization of the superior mesenteric artery was performed. Contrast was injected and a mesenteric angiogram was performed demons trating a portal vein which is patent. The 5-Turkmen catheter was used to select the celiac artery. Contrast was injected and a celiac angiogram was performed. Angiography demonstrated tumor blush in the expected location corresponding to recent CT in segments VII, with branches supplying the tumor fr om the right hepatic artery as well as the left hepatic artery, which was replaced from the left gastric artery. Additionally, a tortuous vessel was noted coursing cranially off of the left gastric artery. Next, a 2.4-Turkmen Progreat microcatheter was advanced into the left hepatic artery (2nd order) with the aid of a 018 Glidewire GT. Contrast was injected and a hepatic angiogram performed, demonstrating partial tumor blush of the medial aspect of the tumor. Then the microcatheter was coaxially introduced and advanced into the common hepatic artery (1st order). Contrast was injected and a common hepatic angiogram was performed. The microcatheter and microwi re was used to select the right hepatic artery (2nd order). Contrast was injected and a right hepatic angiogram was performed. Then the microcatheter and wire was used to select a segmental branch of th e right hepatic artery (3rd order) contrast was injected and angiogram was performed demonstrating tumor blush involving the remainder of the tumor not opacified by the left hepatic angiogram. The microcatheter was further placed within a branch of the right hepatic artery supplying segments VII and past the origin of the cystic artery. A total of 5 mCi of technetium 99 MAA was injected. T he microcatheter was flushed with saline and removed over the guiding catheter. All wires and catheters were then removed. Contrast was injected through the side-arm of the sheath with imaging over the right common femoral artery. This demonstrated a normal-appearing common femor al artery with proper positioning of the femoral artery access in anticipation of arterial closure. Hemostasis was achieved with Angio-Seal and a sterile dressing was applied. The patient tolerated the procedure well and was transferred to the recovery room in stable condition. FINDINGS: See above. IMPRESSION: Successful hepatic angiography and technetium 99m-MAA injection for Y-90 planning PLAN: Segmentectomy dose dose to the tumor in segment VII from the right hepatic artery and replaced left hepatic artery. Dr. Damian Stevens MD was present for the procedure. Chest wo Chest wo Clinical Indication: - liver mass 01/12 - [facility] contrast contrast /2017 - [facility] CT CT Comparison: Abdomen/pelvis CT dated 11/03/2017 Read by: Alvina Patterson DO Dictated Date/time: 01/14/18 16:23 TECHNIQUE: Sequential trans-axial images were obtained thru the chest and upper abdomen without administration of iodinated contrast. Coronal and sagittal reconstructions were obtained. Electronically Signed by: Alvina Patterson DO 01/14/18 16:[address] imaging performed at this location utilizes radiation dose optimization techniques which include one or more of the following: -Automated exposure control -Adjustment of the mA and/or kV according to patient size -Use of iterative reconstruction technique CT Radiation Dose DLP 380.07 mGy-cm FINDINGS: LUNG PARENCHYMA AND PLEURA: There are moderate peripheral and subpleural reticular opacities in both lungs with moderate right and mild left honeycombing present. There are a few scattered groundglass o pacities. There are no consolidations. There are no lung nodules. There are no pleural effusions.There is no pneumothorax. AIRWAY: The central airway is normal. There is mild diffuse bronchiectasis. MEDIASTINUM: The non-contrast enhanced images of the mediastinum show mildly enlarged right paratracheal and subcarinal lymph nodes measuring 11 -- 14 mm in short axis. Additional subcentimeter lymph no manny are seen scattered throughout the mediastinum and axillary regions. The non-contrast enhanced images of the pulmonary arteries and great vessels are unremarkable. The thoracic aorta is normal in elayne iber with moderate atherosclerotic change. The heart size is within normal limits. There are severe coronary artery calcifications. There is no pericardial effusion. OSSEOUS STRUCTURES: There are no significant osseous abnormalities seen. VISUALIZED NON-CONTRAST ENHANCED UPPER ABDOMEN: Vague hypodense mass again partially imaged in the posterior right hepatic lobe. Assessment is otherwise hampered by noncontrast assessment. IMPRESSION: 1. Moderate fibrosis in both lungs with appearance suggestive of usual interstitial pneumonitis/hepatic pulmonary fibrosis. No discrete lung nodules. 2. Mild mediastinal adenopathy. 3. Severe coronary artery disease. 4. Hypodense mass again partially imaged in the liver. Assessment otherwise limited by noncontrast assessment. SL: [id number] Torso-Outs Torso-Outs EXAM: CT ABDOMEN AND PELVIS WITH CONTRAST LIVER PROTOCOL 12/29 - [facility] - Medical Consult CT Consult CT This report was dictated by a Silk Examiner/Fellow. I have personally reviewed the images as Center well as the Resident's interpretation and agree with the findings. DATE: 12/29/2017 2:39 PM CDT Read by: Pranay Eubanks MD Resident: Pranay Eubanks MD Dictated Date/time: 12/29/17 15:04 Electronically Signed by: Elma Shell MD 12/29/17 17:54 FINAL REPORT INDICATION: Suspicious liver lesion, second interpretation requested. COMPARISON: None TECHNIQUE: Volumetric CT abdomen is acquired both prior to and following intravenous contrast, in precontrast, arterial, portal venous and delayed phases of enhancement, per the dynamic liver protocol. Axial, sagittal and coronal images are provided. DLP: 2443 mGy-cm FINDINGS: Lines and tubes: None. Lower thorax: Triple-vessel coronary artery disease and diffuse fibrotic changes noted throughout the lung bases. Liver and biliary tree: An ill-defined, arterially enhancing lesion in hepatic segment VII measures 4.2 x 3.5 x 4.2 cm in maximum diameter. There is pseudo-capsular enhancement on portal venous phase and washout on delayed imaging. No additional focal hepatic lesions identified. No cirrhotic liver morphology or portocaval varices. Gallbladder: Cholelithiasis. No bladder wall thickening or pericholecystic fluid collections. Pancreas: Diffusely atrophic and replacement of the pancreatic parenchyma by fatty infiltration. No focal hepatic lesions. Spleen: Puncture calcifications or sequela of prior granulosus disease. Adrenals: Normal. Kidneys and ureters: The kidneys on the portal and lower limits of normal in size with mild cortical scarring and nonspecific perirenal fat stranding. There is renal excretion of contrast and contrast the urinary bladder on all imaging phases. Bladder: Normal. Reproductive organs: The prostate and seminal vesicles are unremarkable. Gastrointestinal tract: A 2.5 x 3.6 cm right paraesophageal mass (series 2, image 4) within the azygoesophageal recess and is incompletely imaged. No tumor invasion into the adjacent bronchi or vascular structures within the imaged portions. Otherwise normal. Normal appendix. No sigmoid wall thickening. Peritoneum and retroperitoneum: No fluid collections or free air. No mesenteric edema. Lymph nodes: Prominent elicia hepatic and retroperitoneal lymphadenopathy ( series 2, image 44, 53, 62). No enlarged lymph nodes by size criteria. Vasculature: Moderate atherosclerosis of the aortoiliac arteries. Bones: No acute abnormality of the spine. Multilevel age-related degenerative changes of the lower spine including grade 1 retrolisthesis of L4 on L5. Soft tissues: Normal. IMPRESSION/DISCUSSION: 1. There is renal excretion of contrast and contrast within the urinary bladder on all imaging phases which may be due to a prior contrasted study or late acquisition. This significantly limits the int erpretation/adequacy of the multiphase liver protocol which itself was acquired during late for both the arterial and portal venous phases. 2. Within the above stated limitations an ill-defined, arterially enhancing lesion in hepatic segment VII demonstrates pseudocapsular enhancement and washout. Differential within the limitations includ e primary hepatocellular carcinoma versus metastasis. Recommend repeat multiphase liver MR or CT protocol and pathologic correlation. 3. Right paraesophageal mass that is incompletely imaged. Recommend dedicated CT chest for further evaluation. This may be a mediastinal or esophageal mass or lymphadenopathy versus a lesion within the adjacent lung. 4. Prominent elicia hepatic and retroperitoneal lymph nodes. No enlarged lymph nodes by size material. 5. Cholelithiasis. 6. Atrophic pancreas. Knee wo Knee wo MR RIGHT KNEE WITHOUT CONTRAST 06/27 - [facility] contrast contrast /2016 - [facility] MRI HISTORY: R26.2 Difficulty in walking, not elsewhere classified; M25.561 Pain in right knee, 71-year-old male reports right knee pain for approximately 8 months, no specific injury Read by: Ra Rodríguez MD Dictated Date/time: 06/27/16 13:32 Electronically Signed by: Ra Rodríguez MD 06/27/16 13:44 FINAL REPORT COMPARISON: None available TECHNIQUE: Multiplanar, multisequence noncontrast imaging of the knee. FINDINGS: MENISCI: 1. Medial meniscus: High-grade degenerative complete or near-complete tear of the posterior root attachment of the medial meniscus with meniscus extrusion from the joint. Horizontal cleavage tear in the posterior horn of the medial meniscus extending into the meniscal body. 2. Lateral meniscus: Severe degenerative signal and distortion of the posterior root attachment of the lateral meniscus without discrete tear. Degenerative signal in the body of the lateral meniscus. CARTILAGE: 3. Medial compartment cartilage: Moderate chronic thinning peripherally. 4. Lateral compartment cartilage: Moderate to severe irregular thinning posteriorly 5. Patellofemoral cartilage: Patellar cartilage is grossly preserved. There is severe thinning of the cartilage of the lateral trochlea inferiorly with subchondral cystic change. CRUCIATE LIGAMENTS: 6. Anterior cruciate ligament: Severely distorted ACL, likely ACL deficient knee. 7. Posterior cruciate ligament: Severely distorted posterior cruciate ligament, possible PCL deficient knee. COLLATERAL LIGAMENTS: 8. Medial collateral ligament complex: Normal. 9. Lateral collateral ligament complex: Normal. EXTENSOR MECHANISM: 10. Intact patellar and quadriceps tendons. 11. No patellar tilt or subluxation. OTHER: 12. No fracture, bone contusion, or aggressive osseous lesion. 13. Degenerative subarticular cystic change in the posterior aspects of the medial tibial plateau and lateral tibial plateau. 14. Small joint effusion with degenerative synovitis. 15. Moderate tricompartmental degenerative hypertrophic spurring. IMPRESSION: 1. Complex high-grade tear of the posterior root attachment of the medial meniscus with meniscal extrusion. 2. Horizontal cleavage tear in the posterior horn of the medial meniscus. 3. Complex moderate to high-grade tear of the posterior root attachment of the lateral meniscus without meniscus extrusion. 4. Tricompartmental chondromalacia, worst involving the posterior aspect of the lateral compartment and inferior aspect of the lateral trochlea. 5. Severely distorted and abnormal cruciate ligaments, likely ACL deficient knee and possible PCL deficient knee. 6. Degenerative subarticular cystic change in the posterior aspects of the medial and lateral tibial plateaus. 7. Small joint effusion with degenerative synovitis and tricompartmental degenerative hypertrophic osseous spurring. Thank you for referring your patient to [facility] and [facility]. SL: [id number] Vital Signs Vital Sign Value Date Comments Source Encounters Location Location Encounter Encounter Reason Attending ADM DC Status Source Details Type Number For Provider Date Date Visit Outpatient [id number] CHILO TIANNA [facility]04 [facility] [id number] Adela 06/27 06/28 [facility] [place]2016 [facility] [id number] CHILO TIANNA 07/25 [facility] [id number] Lio 06/02 06/03 [facility] [place] /2018 [facility] [place] [facility] Phone [id number] 06/11 [facility] [id number] JIM Shen 06/27 Active [facility] Procedures Procedure Code Date Perfomer Comments Source Radiation therapy [id number] 02/15/2018 [facility] [place] Radiation therapy [id number] 02/15/2018 [facility] Stent replacement [id number] [facility] Examination of [id number] [facility] [place] Stent replacement [id number] [facility] Examination of [id number] [facility] Stent replacement [id number] [facility]
--- OUTSIDE RECORDS SUMMARY | 2018-06-16 13:33 | XMS REPORT | Summary of Care ---
:1945 Author Organization [facility] Out[facility] [place] Address [address] [place], [place] [address]- Encounter HQ Encntr_alias(FIN) [id number] Date(s): 06/27/16 - 06/27/16 [facility] [address], [address] [place] [address]- [phone] Discharge Disposition: Home or Self Care Attending Physician: Adela Vasquez NP Vital Signs No data available for this section Problem List Condition Effective Dates Status Health Status Informant High blood pressure(Confirmed) Active Borderline diabetes(Confirmed) Active Allergies, Adverse Reactions, Alerts Substance Reaction Severity Status NKDA Active Medications No data available for this section Results No data available for this section Immunizations No data available for this section Procedures Procedure Date Related Diagnosis Body Site Stent replacement Social History Social History Type Response Smoking Status Former smoker; Exposure to Tobacco Smoke None; Cigarette Smoking Last 365 Days No; Reg Smoking Cessation Counseling No Assessment and Plan No data available for this section
--- OUTSIDE RECORDS SUMMARY | 2018-06-16 13:33 | XMS REPORT | Summary of Care ---
:1945 Author Organization [facility] Neurosurgery [facility] Address [address], [address] [place] [address]- Encounter HQ Encntr_alimalia(FIN) [id number] Date(s): 06/11/18 - 06/12/18 [facility] [address], [address] [place] [phone] Vital Signs No data available for this section Problem List Condition Effective Dates Status Health Status Informant Knee pain, bilateral(Confirmed) Resolved Asbestosis(Confirmed) Active BPH (benign prostatic Active hyperplasia)(Confirmed) Chest pain(Confirmed) Resolved CAD (coronary artery Active disease)(Confirmed) Prostate irregularity(Confirmed) Resolved Chronic GERD(Confirmed) Active High blood cholesterol(Confirmed) Active High blood pressure(Confirmed) Active Borderline diabetes(Confirmed) Active Liver mass(Confirmed) Active Myocardial infarction(Confirmed) Resolved Allergies, Adverse Reactions, Alerts Substance Reaction Severity Status NKDA Active Medications No data available for this section Results No data available for this section Immunizations No data available for this section Procedures Procedure Date Related Diagnosis Body Site Status Radiation therapy care 02/15/18 Completed Examination of spine Completed Stent replacement Completed Social History Social History Type Response Substance Abuse Use: None. Employment/School Status: Retired. Work/School description: Worked [employer] for 40 years. Alcohol Past Smoking Status Former smoker; Previous treatment: None; Exposure to Tobacco Smoke None; Cigarette Smoking Last 365 Days No; Reg Smoking Cessation Counseling No; Tobacco use per day: 0; Number of years: 0; Total pack years: 0; Other Tobacco Frequency Former Smoker; 1, 2 entered on: 06/01/18 1pt states he stopped smoking 15 years ago.2pt former smoker Assessment and Plan No data available for this section
--- OUTSIDE RECORDS SUMMARY | 2018-06-16 13:33 | XMS REPORT | Summary of Care ---
:1945 Author Organization [facility] Outpatient Imaging [place] Address [address] [place], [place] [address]- Encounter HQ Aaliyah_ed(FIN) [id number] Date(s): 06/02/18 - 06/02/18 [facility] [place] [address] [place] [address]- [phone] Discharge Disposition: Home or Self Care Attending Physician: Lio Ledbetter MD Referring Physician: Lio Ledbetter MD Vital Signs No data available for this [...]
--- OUTSIDE RECORDS SUMMARY | 2018-06-16 13:33 | XMS REPORT | Summary of Care ---
:1945 Author Name BRETT MCFADDEN M.D. Address Unavailable Unavailable , Care Team Providers Name Role Phone BOGDAN Peñaloza, BRETT Unavailable Unavailable EARLINE PIZARRO, JESUS Patel Unavailable Unavailable Gerson PIZARRO, Jose Enrique Unavailable Unavailable JAIME PIZARRO GAKG Unavailable Unavailable Unavailable Unavailable Unavailable Functional Status Name Dates Details Functional status health issues are not documented Status: Name Dates Details Cognitive status health issues are not documented Status: Problems Name Dates Details Primary hepatocellular carcinoma of liver (155.0, C22.0) Status: Active Seborrheic dermatitis, unspecified (690.10, L21.9) Status: Active Medications Name Dates Details Omeprazole TBEC Refills: 0 Active MetFORMIN HCl TABS Refills: 0 Active Clopidogrel Bisulfate TABS Refills: 0 Active Metoprolol Tartrate TABS Refills: 0 Active Pravastatin Sodium TABS Refills: 0 Active Tamsulosin HCl 0.4 MG CP24 Refills: 0 Active Finasteride TABS Refills: 0 Active Ketoconazole 2 % External Cream APPLY SPARINGLY TO AFFECTED AREA(S) TWICE DAILY Quantity: 60 Refills: 5 BOGDAN Peñaloza, BRETT Start : 09-May-2018 Active Hydrocortisone 2.5 % External Cream APPLY 1-2 TIMES DAILY TO AFFECTED AREA(S) OF FACE NEEDED Quantity: 80 Refills: 5 BRETT MCFADDEN M.D. Start : 09-May-2018 Active Allergies and Adverse Reactions Name Dates Details No Known Drug Allergies (Allergy) Status: Active Past Medical History Name Dates Details History of cardiac disorder (V12.50, Z86.79) Status: Resolved History of diabetes mellitus (V12.29, Z86.39) Status: Resolved Procedures Procedure Dates Details History of Heart surgery Completed History of Arterial stent placement Completed Immunization Name Dates Details Immunizations not documented Family History Name Dates Details Family history of diabetes mellitus (V18.0, Z83.3) Comments: Family History Status: Active Family history of cardiac disorder (V17.49, Z82.49) Comments: Family History Status: Active Social History Name Dates Details Unknown if ever smoked Vital Signs Date Test Result Details No Known Vitals to report Results Date Description Value Details [id number] Abdomen acute series comp w chest 1 view [id number] Abdomen acute series comp w SEE NOTES Comments: EXAM: ACUTE ABDOMINAL SERIES WITH CHEST 1 VIEWDATE: 05/04/2018 12:54 CSTINDICATION: - 73 y/o M with h /o constipation, pls r/o obstruction,K59.00 Constipation, unspecifiedADDITIONAL INFORMATION: None.C chest 1 view OMPARISON: CT abdomen 04/02/2018TECHNIQUE: Frontal upright and supine images of the abdomen and 1 view of thechest. Total images=4.FINDINGS : Lines and tubes: None.Lower thorax: Low lung volumes with acc entuated vascular markings and bibasilaropacities which may represent atelectasis/aspiration with underlying fibroticchanges of the lung bases better seen on prior CT exam.Bowel: No definite free air be neath the hemidiaphragm in the upright image.Gaseous distention of the colon without significant dilatation. No distalcolonic dilatation.Moderate stool within the ascending colon. Small amount of rectal gas.Nondilated small bowel gas pattern.Solid organs: Hepatic metastases better seen on prior CT exam.Calcifications: No abnormal calcifications found. Bones: Degenerative changes of the thoracolumbar spine. Vascularcalcifications. IMPRESSION:1. No obstructive bowel gas pattern.2. Moderate stool burden.--Read by: Aaron Tran MDDictated Date/time: 05/04/18 13:30Electronically Signed by : Aaron Tran MD 05/04/1813:35FINAL REPORT Plan of Care Name Dates Details Planned Observations Planned Goals not documented Interventions Provided Medication ChangesHydrocortisone 2.5 % External Cream - StartKetoconazole 2 % External Cream - StartDiscussion/SummaryImpression:. Seborrheic dermatitis- Discussed that anti-dandruff shampoo should be left on for 5-10 minutes before rinsing to be effective-Start ketoconazole cream BID to AA-Start hydrocortisone 2.5% cream 1-2 times daily prn to AA for pruritus as belowPruritus-Based upon history, new immunotherapy for liver cancer is likely contributing, but pruritus is tolerable-Recommend treatment of brett derm as above, with hydrocortisone 2.5% cream daily prn for symptomatic reliefRTC 1 month or sooner as needed. Patient Discussion: This was discussed in detail with the patient and all questions were answered. this was discussed in detail with the patient' s family and all questions were answered. Instructions Name Dates Details Instructions not documented Encounters Appointment; JUANITO CRYSTAL On: 29-Dec-2017 9:00 Encounter Diagnosis: Problem not documented Appointment; RADIOLOGY, MD PROVIDER On: 19-Jan-2018 10:00 Encounter Diagnosis: Problem not documented Appointment; KG SANDOVAL M.D. On: 06-Feb-2018 12:40 Encounter Diagnosis: Problem not documented Appointment; KG SANDOVAL M.D. On: 08-Mar-2018 11:00 Encounter Diagnosis: Problem not documented Appointment; MALU BLANCO M.D. On: 03-Apr-2018 13:00 Encounter Diagnosis: Problem not documented Appointment; KG SANDOVAL M.D. On: 17-Apr-2018 14:00 Encounter Diagnosis: Problem not documented Appointment; BRETT MCFADDEN M.D. On: 09-May-2018 10:00 Encounter Diagnosis: Problem not documented
--- NOTE | 2018-06-16 14:11 | RAD REPORT ---
EXAM DESCRIPTION: CT - Ct Stroke Brain Wo Cont - 06/16/2018 1:50 pm CLINICAL HISTORY: Altered mental status Exam was initially ordered as a stroke protocol study. Stroke protocol component was then retracted b ut subsequent to ordering of the examination. COMPARISON: None. TECHNIQUE: Axial 5 millimeter thick images of the head were obtained without IV contrast. All CT scans are performed using dose optimization technique as appropriate and may include automated exposure control or mA/KV adjustment according to patient size. FINDINGS: No intracranial hemorrhage, mass, or cerebral edema. No acute infarction identifiable. No cortical edema or sulcal effacement. Moderate severity atrophy and chronic ischemic changes are prese nt. Ventricles are in proportion to volume loss. Corona matter-white matter differentiation is preserve d. No globe or orbital content abnormality seen. Visualized portions of the mastoid air cells, paranasal sinuses, and orbits are unremarkable. IMPRESSION: No CT evidence of acute intracranial process. Patient has moderate severity atrophy and chronic ischemic change.
--- NOTE | 2018-06-16 14:21 | RAD REPORT ---
EXAM DESCRIPTION: RAD - Chest Single View - 06/16/2018 2:03 pm CLINICAL HISTORY: Transient alteration of awareness COMPARISON: October 2017, December 2015 TECHNIQUE: AP portable chest image was obtained 1353 hours . FINDINGS: Lung volumes are low. Patient has extensive interstitial lung disease throughout the lung whitney. Findings are more pronounced in the right base are not substantially different from prior stacey ging. No large mass or consolidation. Early pneumonia or interstitial edema can easily be masked by t he severity of chronic disease. Cardiac silhouette is prominent but stable. Vasculature prominent and stable as well. No measurable pleural effusion and no pneumothorax. No acute bony abnormality seen. No acute aortic findings suspec miguel angel. IMPRESSION: Very extensive interstitial lung disease present. The findings are not substantially dif ferent from prior imaging. Severity of chronic disease can mask pneumonia and interstitial edema.
[2018-06-16 14:29] LABS: Absolute Lymphocytes (CBC) 0.5 K/uL (0.7-4.9); Absolute Monocytes 0.3 K/uL (0.1-1.3); Absolute Neutrophil 6.9 K/uL (1.8-8.0); Basophils % 0.4 % (0-1.3); Eosinophils % 0.1 % (0-4.4); Hematocrit 44.7 % (39.6-49.0); Lymphocytes % 6.8 % (15.3-44.8); MPV 8.4 fL (7.6-11.3); Monocytes % 3.6 % (3.3-12.3); RBC Red Blood Cell Count 4.76 M/uL (4.33-5.43)
[2018-06-16 14:35] LABS: Protime INR 1.06
[2018-06-16 14:45] LABS: ALT/SGPT 28 U/L (12-78); AST/SGOT 30 U/L (15-37); Albumin 3.3 g/dL (3.4-5.0); Alkaline Phosphatase 104 U/L (45-117); BUN Blood Urea Nitrogen 13 mg/dL (7-18); Bicarbonate 27 mmol/L (21-32); Bilirubin Total 0.7 mg/dL (0.2-1.0); Glucose Level 165 mg/dL (74-106); Potassium 4.2 mmol/L (3.5-5.1); Protein, Total 7.6 g/dL (6.4-8.2); Sodium Level 137 mmol/L (136-145); Troponin (Emerg Dept Use Only) < 0.02 ng/mL (0.0-0.045)
[2018-06-16 15:31] LABS: Blood Morphology Comment NOT SEEN (NOT SEEN); Platelet Estimate ADEQ; Urine White Blood Cell Casts OK
[2018-06-16] MEDS ORDERED: CEFTRIAXONE 1000 MG/VIAL ONE (17:57)
[2018-06-16] MEDS ORDERED: AZITHROMYCIN 500 MG/250 ML BAG ONE (17:58)
[2018-06-16] MEDS ORDERED: NA CHLORIDE 0.9% 100 ML IV ONE (17:58)
[2018-06-16 18:00] LABS: Barbiturates NEGATIVE (NEGATIVE); Benzodiazepines NEGATIVE (NEGATIVE); Cocaine NEGATIVE (NEGATIVE); METHAMPHETAM NEGATIVE (NEGATIVE); Methadone NEGATIVE (NEGATIVE); Opiates NEGATIVE (NEGATIVE); Phencyclidine NEGATIVE (NEGATIVE); THC Cannibis NEGATIVE (NEGATIVE); Urine Bacteria NONE SEEN /HPF (NONE SEEN)
[2018-06-16 18:02] LABS: Urine Culture Reflex Order NOT NEEDED
--- NOTE | 2018-06-16 18:19 | EDPHYS ---
Physician Documentation [facility] Name: Grzegorz Long Age: 73 yrs Sex: Male : 1945 Arrival Date: 06/16/2018 Time: 13:40 Bed 17 Private MD: ED Physician Arturo Go HPI: 06/16 13:55 This 73 yrs old Male presents to ER via Unassigned with complaints of Altered ps1 Mental Status. 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 States that he was confused at home and talking to himself non-sensical so EMS was called. Patient has no FND although is is completely disoriented. . Historical: - Allergies: 13:56 No Known Allergies; bp - Home Meds: 13:56 aspirin 81 mg Oral chew 1 tab once daily [Active]; Lopressor 100 mg Oral tab 1 tab once bp daily [Active]; metformin 500 mg Oral tab 1 tab 2 times per day [Active]; Plavix 75 mg Oral tab 1 tab once daily [Active]; pravastatin 80 mg Oral tab 1 tab once daily [Active]; - PMHx: 13:56 Diabetes - NIDDM; High Cholesterol; Hypertension; Cancer; LIVER; bp - Immunization history:: Adult Immunizations unknown. - Social history:: Smoking status: Patient/guardian denies using tobacco. - Ebola Screening: : Patient negative for fever greater than or equal to 101.5 degrees Fahrenheit, and additional compatible Ebola Virus Disease symptoms Patient denies exposure to infectious person Patient denies travel to an Ebola-affected area in the 21 days before illness onset No symptoms or risks identified at this time. ROS: 13:55 Unable to obtain ROS due to altered mental status. ps1 Exam: 13:55 Constitutional: This is a well developed, well nourished patient who is awake, alert, ps1 and in no acute distress. Head/Face: Normocephalic, atraumatic. Eyes: Pupils equal round and reactive to light, extra-ocular motions intact. Lids and lashes normal. Conjunctiva and sclera are non-icteric and not injected. Chest/axilla: Normal chest wall appearance and motion. Nontender with no deformity. No lesions are appreciated. Cardiovascular: Regular rate and rhythm. No gallops, murmurs, or rubs. Normal PMI, no JVD. No pulse deficits. Respiratory: Lungs have equal breath sounds bilaterally, clear to auscultation and percussion. No rales, rhonchi or wheezes noted. No increased work of breathing, no retractions or nasal flaring. Abdomen/GI: Soft, non-tender, with normal bowel sounds. No distension or tympany. No guarding or rebound. No evidence of tenderness throughout. Skin: Warm, dry with normal turgor. Normal color with no rashes, no lesions, and no evidence of cellulitis. MS/ Extremity: Pulses equal, no cyanosis. Neurovascular intact. Full, normal range of motion. 13:55 Neuro: Exam negative for Orientation: Not oriented to person, place, time, situation, Memory: unable to test, Cranial nerves: grossly normal, Cerebellar function: Motor: is normal, Sensation: is normal. Vital Signs: 14:19 BP 168 / 93; Pulse 97; Resp 21; Temp 98; Pulse Ox 96% ; Weight 79.38 kg; bp 14:48 BP 166 / 86; Pulse 94; Resp 23; Pulse Ox 94% ; bp 15:49 BP 162 / 94; Pulse 92; Resp 22; Pulse Ox 94% on R/A; mh5 16:56 BP 152 / 78; Pulse 94; Resp 14; Pulse Ox 96% ; bp 19:15 BP 125 / 67; Pulse 84; Resp 16; Temp 97.7; Pulse Ox 100% ; rr5 20:00 BP 121 / 65; Pulse 80; Resp 17; Pulse Ox 98% ; rr5 21:00 BP 128 / 60; Pulse 80; Resp 16; Pulse Ox 99% ; rr5 NIH Stroke Scale Scores: 14:20 NIHSS Score: 3 bp [place] Coma Score: 19:15 Eye Response: spontaneous(4). Verbal Response: confused(4). Motor Response: obeys rr5 commands(6). Total: 14. MDM: 13:44 Patient medically screened. ps1 20:29 Data reviewed: vital signs, nurses notes, lab test result(s), EKG, radiologic studies, jr8 CT scan. Data interpreted: Pulse oximetry: on room air is 100 %. Counseling: I had a detailed discussion with the patient and/or guardian regarding: the historical points, exam findings, and any diagnostic results supporting the discharge/admit diagnosis, lab results, radiology results, the need for further work-up and treatment in the hospital. 06/16 13:42 Order name: Troponin (emerg Dept Use Only); Complete Time: 14:57 ps1 06/16 13:42 Order name: CBC with Diff; Complete Time: 15:35 ps1 06/16 13:42 Order name: Protime (+inr); Complete Time: 14:57 ps1 06/16 13:42 Order name: Ptt, Activated; Complete Time: 14:57 ps1 06/16 13:42 Order name: CMP; Complete Time: 14:57 ps1 06/16 13:42 Order name: AMMONIA; Complete Time: 14:42 ps1 06/16 13:42 Order name: CT Stroke Brain w/o Contrast; Complete Time: 14:17 ps1 06/16 13:42 Order name: Stroke CXR 1 View; Complete Time: 14:22 ps1 06/16 13:43 Order name: Urinalysis ps1 06/16 14:42 Order name: CBC Smear Scan; Complete Time: 15:35 EDMS 06/16 17:29 Order name: Urine Drug Screen; Complete Time: 18:13 bp 06/16 17:29 Order name: Urine Microscopic Only; Complete Time: 18:13 bp 06/16 17:29 Order name: Urine Dipstick--Ancillary (enter results); Complete Time: 20:28 eb 06/16 13:42 Order name: EKG; Complete Time: 13:43 ps1 06/16 13:42 Order name: Accucheck; Complete Time: 14:29 ps1 06/16 13:42 Order name: Cardiac monitoring; Complete Time: 14:19 ps1 06/16 13:42 Order name: EKG - Nurse/Tech; Complete Time: 14:19 ps1 06/16 13:42 Order name: IV Saline Lock; Complete Time: 14:19 ps1 06/16 13:42 Order name: Labs collected and sent; Complete Time: 14:19 ps1 06/16 13:42 Order name: NPO; Complete Time: 14:19 ps1 06/16 13:42 Order name: O2 Per Protocol; Complete Time: 14:19 ps1 06/16 13:42 Order name: O2 Sat Monitoring; Complete Time: 14:19 ps1 06/16 13:42 Order name: Stroke Swallow Screen; Complete Time: 14:19 ps1 06/16 17:14 Order name: Straight Cath; Complete Time: 17:29 iw 06/16 17:29 Order name: Urine Dipstick-Ancillary (obtain specimen); Complete Time: 17:30 bp EC:20 Rate is 95 beats/min. Rhythm is regular. QRS [place] is Normal. ME interval is normal. QRS ps1 interval is prolonged. QT interval is normal. No Q waves. T waves are Normal. No ST changes noted. Clinical impression: NSR w/ Non-specific ST/T Changes and RBBB with bifasicular block. Interpreted by me. Administered Medications: 17:45 Drug: Rocephin - (cefTRIAXone) 1 grams Route: IVPB; Infused Over: 30 mins; Site: right bp forearm; 18:16 Follow up: IV Status: Completed infusion; IV Intake: 100ml bp 18:15 Drug: AZITHromycin 500 mg Route: IVPB; Infused Over: 1 hrs; Site: right antecubital; bp 20:44 Follow up: Response: No adverse reaction; IV Status: Completed infusion; IV Intake: rr5 250ml 19:02 Drug: Ibuprofen 800 mg Route: PO; bp 20:44 Follow up: Response: No adverse reaction rr5 Disposition: 06/16/18 18:18 Hospitalization ordered by Leon Hall for Inpatient Admission. Preliminary diagnosis are Acute encephalopathy, Pneumonia, Liver cancer. - Bed requested for Telemetry/MedSurg (Inpatient). - Status is Inpatient Admission. rr5 - Condition is Fair. - Problem is an acute exacerbation. - Symptoms have improved. UTI on Admission? No NIH Stroke Scale - NIH Stroke Score Date: 06/16/2018 Time: 14:20 Total Score = 3 1a. Level of Consciousness (LOC) - 0(Alert) 1b. Level of Consciousness (LOC) (Year \T\ Age) - 2(Neither) 1c. LOC Commands (Open \T\ Closes Eyes/Tub Wash Operator) - 0(Both) 2. Best Gaze (Lateral Gaze Paresis) - 0(Normal) 3. Visual Field Loss - 0(No visual loss) 4. Facial Palsy - 0(Normal) 5a. Left Arm: Motor (10-second hold) - 0(No drift) 5b. Right Arm: Motor (10-second hold) - 0(No drift) 6a. Left Leg: Motor (5-second hold - always test supine) - 0(No drift) 6b. Right Leg: Motor (5-second hold - always test supine) - 0(No drift) 7. Limb Ataxia (finger/nose \T\ heel/bolton - test with eyes open) - 0(Absent) 8. Sensory Loss (pinprick arms/legs/face) - 0(Normal) 9. Best Language: Aphasia (description/naming/reading) - 1(Mild to moderate aphasia) 10. Dysarthria (speech clarity - read or repeat words) - 0(Normal) 11. Extinction and Inattention (visual/tactile/auditory/spatial/personal) - 0(No abnormality) Initials: bp Addendum: 06/19/2018 20:33 Co-signature as Attending Physician, Arturo Go MD Available for ps1 consultation at all times . Signatures: Dispatcher [employer] EDMS Mena Madrid RN RN Aly Mcqueen PA PA jr8 Eros Lamb RN RN bp Arturo Go MD MD ps1 Asia Jensen Brian Reece RN RN rr5 Corrections: (The following items were deleted from the chart) 06/16 18:43 18:18 Hospitalization Ordered by Rico Gorman MD for Inpatient Admission. eb Preliminary diagnosis is Acute encephalopathy; Pneumonia; Liver cancer. Bed requested for Telemetry/MedSurg (Inpatient). Status is Inpatient Admission. Condition is Fair. Problem is an acute exacerbation. Symptoms have improved. UTI on Admission? No. ps1 20:52 18:43 06/16/2018 18:18 Hospitalization Ordered by Rico Gorman MD for Inpatient jr8 Admission. Preliminary diagnosis is Acute encephalopathy; Pneumonia; Liver cancer. Bed requested for Telemetry/MedSurg (Inpatient). Status is Inpatient Admission. Condition is Fair. Problem is an acute exacerbation. Symptoms have improved. UTI on Admission? No. eb 21:16 20:52 06/16/2018 18:18 Hospitalization Ordered by Leon Hall MD for Inpatient rr5 Admission. Preliminary diagnosis is Acute encephalopathy; Pneumonia; Liver cancer. Bed requested for Telemetry/MedSurg (Inpatient). Status is Inpatient Admission. Condition is Fair. Problem is an acute exacerbation. Symptoms have improved. UTI on Admission? No. jr8
--- NOTE | 2018-06-16 18:19 | ER ---
Nurse's Notes [facility] Name: Grzegorz Long Age: 73 yrs Sex: Male : 1945 Arrival Date: 06/16/2018 Time: 13:40 Bed 17 Private MD: Diagnosis: Acute encephalopathy;Pneumonia;Liver cancer Presentation: 06/16 13:52 Presenting complaint: EMS states: RECD 73YO HM VIA EMS, 30 MIN ACUTELY ALTERED, PER bp FAMILY. PT BASELINE AOx4, SELF-CARE. PT NOW AOx1. Transition of care: patient was not received from another setting of care. Onset of symptoms was June 16, 2018 at 13:30. Risk Assessment: Do you want to hurt yourself or someone else? Patient reports no desire to harm self or others. Initial Sepsis Screen: Does the patient meet any 2 criteria? No. Patient's initial sepsis screen is negative. Does the patient have a suspected source of infection? No. Patient's initial sepsis screen is negative. Care prior to arrival: IV initiated. 20 GA, in the right antecubital area, Glucose check: 156. 13:52 Method Of Arrival: EMS: [facility] bp 13:52 Acuity: DANN 1 bp Historical: - Allergies: 13:56 No Known Allergies; bp - Home Meds: 13:56 aspirin 81 mg Oral chew 1 tab once daily [Active]; Lopressor 100 mg Oral tab 1 tab once bp daily [Active]; metformin 500 mg Oral tab 1 tab 2 times per day [Active]; Plavix 75 mg Oral tab 1 tab once daily [Active]; pravastatin 80 mg Oral tab 1 tab once daily [Active]; - PMHx: 13:56 Diabetes - NIDDM; High Cholesterol; Hypertension; Cancer; LIVER; bp - Immunization history:: Adult Immunizations unknown. - Social history:: Smoking status: Patient/guardian denies using tobacco. - Ebola Screening: : Patient negative for fever greater than or equal to 101.5 degrees Fahrenheit, and additional compatible Ebola Virus Disease symptoms Patient denies exposure to infectious person Patient denies travel to an Ebola-affected area in the 21 days before illness onset No symptoms or risks identified at this time. Screenin:20 Abuse screen: Denies threats or abuse. Denies injuries from another. Nutritional bp screening: No deficits noted. Tuberculosis screening: No symptoms or risk factors identified. Fall Risk No fall in past 12 months (0 pts). Secondary diagnosis (15 points) AMS. IV access (20 points). Ambulatory Aid- None/Bed Rest/Nurse Assist (0 pts). Gait- Normal/Bed Rest/Wheelchair (0 pts) Mental Status- Overestimates/Forgets Limitations (15 pts.). Total [place]ood Fall Scale indicates High Risk Score (45 or more points). Fall prevention measures have been instituted. Side Rails Up X 2 Placed Close to Nursing Station Frequent Obs/Assessments Occuring Family Present and informed to notify staff if the need to leave the bedside As available patient and family educated on Fall Prevention Program and Strategies. 14:20 The patient has not been NPO before screening. The patient is alert, able to follow bp commands. The patient does not exhibit slurred or garbled speech The patient is not exhibiting difficulty speaking. The patient does not exhibit difficulty understanding words. The patient is able to swallow own secretions with no drooling or need for suction. Patient tolerated one teaspoon of water. No drooling, immediate coughing, gurgling, or clearing of the throat was noted. The patient tolerated 90mL of water. No drooling, immediate coughing, gurgling, or clearing of the throat was noted. The patient passed the bedside swallow screening. Oral medications may be given as ordered. Contact Physician for further diet orders. Provider notified of bedside swallow screening results: Arturo Go MD. Assessment: 14:20 General: Appears distressed, comfortable, Behavior is cooperative. Pain: Complains of bp pain in back of head. Neuro: Level of Consciousness is awake, confused, Oriented to person, Freelance Writer are equal bilaterally Moves all extremities. Full function Gait is unsteady, Speech is normal, Facial symmetry appears normal, Pupils are PERRLA, Intact. Cardiovascular: Rhythm is sinus rhythm. Respiratory: Airway is patent Respiratory effort is even, unlabored, Respiratory pattern is regular, symmetrical. GI: No signs and/or symptoms were reported involving the gastrointestinal system. : No signs and/or symptoms were reported regarding the genitourinary system. EENT: No deficits noted. Derm: No deficits noted. Musculoskeletal: Circulation, motion, and sensation intact. Range of motion: intact in all extremities. 14:20 Reassessment: STROKE ALERT DEFERRED BY . bp 14:49 Reassessment: ALL CURRENT ORDERS COMPLETED, NO CHANGE IN PT NEURO STATUS. bp 15:50 Reassessment: PT ATTEMPTED TO USE URINAL WITH AID OF FAMILY, BUT UNABLE TO COORDINATE bp AND URINATED ON FLOOR. PT CONTINUES TO BE AOx1. 16:56 Reassessment: ALL CURRENT ORDERS COMPLETED, DISPO PENDING. bp 19:00 General: Appears in no apparent distress. comfortable, Behavior is calm, cooperative, rr5 quiet, disoriented GCS 14/15. 19:00 Pain: Denies pain. Neuro: Level of Consciousness is awake, confused, Oriented to rr5 person, Freelance Writer are equal bilaterally Moves all extremities. Full function Gait is unsteady, Speech delayed response. Facial symmetry appears normal. Cardiovascular: Capillary refill < 3 seconds Patient's skin is warm and dry. Respiratory: Airway is patent Respiratory effort is even, unlabored, Respiratory pattern is regular, symmetrical. GI: No signs and/or symptoms were reported involving the gastrointestinal system. : No signs and/or symptoms were reported regarding the genitourinary system. EENT: No signs and/or symptoms were reported regarding the EENT system. Derm: Skin is intact, Skin temperature is warm. Musculoskeletal: Circulation, motion, and sensation intact. Capillary refill < 3 seconds, Range of motion: intact in all extremities. 20:00 Reassessment: Patient appears in no apparent distress at this time. No changes from rr5 previously documented assessment. no complaints made. 21:00 Reassessment: Patient appears in no apparent distress at this time. admitting physician rr5 change to dr. hall. Vital Signs: 14:19 BP 168 / 93; Pulse 97; Resp 21; Temp 98; Pulse Ox 96% ; Weight 79.38 kg; bp 14:48 BP 166 / 86; Pulse 94; Resp 23; Pulse Ox 94% ; bp 15:49 BP 162 / 94; Pulse 92; Resp 22; Pulse Ox 94% on R/A; mh5 16:56 BP 152 / 78; Pulse 94; Resp 14; Pulse Ox 96% ; bp 19:15 BP 125 / 67; Pulse 84; Resp 16; Temp 97.7; Pulse Ox 100% ; rr5 20:00 BP 121 / 65; Pulse 80; Resp 17; Pulse Ox 98% ; rr5 21:00 BP 128 / 60; Pulse 80; Resp 16; Pulse Ox 99% ; rr5 [place] Coma Score: 19:15 Eye Response: spontaneous(4). Verbal Response: confused(4). Motor Response: obeys rr5 commands(6). Total: 14. NIH Stroke Scale Scores: 14:20 NIHSS Score: 3 bp ED Course: 13:40 Patient arrived in ED. la1 13:41 Arturo Go MD is Attending Physician. ps1 13:50 CT Stroke Brain w/o Contrast In Process Unspecified. EDMS 13:51 Eros Lamb, ONEIL is Primary Nurse. bp 13:55 Triage completed. bp 14:04 Stroke CXR 1 View In Process Unspecified. EDMS 14:20 Arm band placed on. bp 14:20 Patient has correct armband on for positive identification. Placed in gown. Bed in low bp position. Call light in reach. Side rails up X2. Adult w/ patient. 14:20 Maintain EMS IV. Dressing intact. Good blood return noted. Site clean \T\ dry. Gauge \T\ bp site: 20 GAUGE R AC. IV is intact, with good blood return. 18:17 Rico Gorman MD is Hospitalizing Provider. ps1 20:05 No provider procedures requiring assistance completed. Patient admitted, IV remains in rr5 place. intact, No redness/swelling at site. 20:52 Hospitalizing Provider role handed off by Rico Gorman MD jr8 20:52 Leon Hall MD is Hospitalizing Provider. jr8 Administered Medications: 17:45 Drug: Rocephin - (cefTRIAXone) 1 grams Route: IVPB; Infused Over: 30 mins; Site: right bp forearm; 18:16 Follow up: IV Status: Completed infusion; IV Intake: 100ml bp 18:15 Drug: AZITHromycin 500 mg Route: IVPB; Infused Over: 1 hrs; Site: right antecubital; bp 20:44 Follow up: Response: No adverse reaction; IV Status: Completed infusion; IV Intake: rr5 250ml 19:02 Drug: Ibuprofen 800 mg Route: PO; bp 20:44 Follow up: Response: No adverse reaction rr5 Intake: 18:16 IV: 100ml; Total: 100ml. bp 20:44 IV: 250ml; Total: 350ml. rr5 Outcome: 18:18 Decision to Hospitalize by Provider. ps1 20:00 Admitted to Tele accompanied by ivonne, via stretcher, with chart, Report called to rr5 prashantpadilla 20:00 Condition: stable 20:00 Instructed on the need for admit. 21:16 Patient left the ED. rr5 NIH Stroke Scale - NIH Stroke Score Date: 06/16/2018 Time: 14:20 Total Score = 3 1a. Level of Consciousness (LOC) - 0(Alert) 1b. Level of Consciousness (LOC) (Year \T\ Age) - 2(Neither) 1c. LOC Commands (Open \T\ Closes Eyes/Caterers Helper) - 0(Both) 2. Best Gaze (Lateral Gaze Paresis) - 0(Normal) 3. Visual Field Loss - 0(No visual loss) 4. Facial Palsy - 0(Normal) 5a. Left Arm: Motor (10-second hold) - 0(No drift) 5b. Right Arm: Motor (10-second hold) - 0(No drift) 6a. Left Leg: Motor (5-second hold - always test supine) - 0(No drift) 6b. Right Leg: Motor (5-second hold - always test supine) - 0(No drift) 7. Limb Ataxia (finger/nose \T\ heel/bolton - test with eyes open) - 0(Absent) 8. Sensory Loss (pinprick arms/legs/face) - 0(Normal) 9. Best Language: Aphasia (description/naming/reading) - 1(Mild to moderate aphasia) 10. Dysarthria (speech clarity - read or repeat words) - 0(Normal) 11. Extinction and Inattention (visual/tactile/auditory/spatial/personal) - 0(No abnormality) Initials: bp Signatures: Dispatcher [employer] EDMS Aly Mcqueen PA PA jr8 Walt Lucas RN RN Cass Hedrick 5 Eros Lamb RN RN bp Arturo Go MD MD ps1 Roque, Raymond, ONEIL RN rr5 Corrections: (The following items were deleted from the chart) 14:25 14:20 Fall Risk None identified. bp bp
[2018-06-16 18:47] LABS: Urine Blood TRACE (NEG); Urine Glucose NEGATIVE (NEG); Urine Protein 2+ (NEG); Urine pH 8.5 (5.0-7.0)
[2018-06-16] MEDS ORDERED: IBUPROFEN 400 MG TAB ONE (19:08)
[2018-06-16] MEDS ORDERED: NA CHLORIDE 0.9% 1,000 ML IV SCH (21:24)
[2018-06-16] MEDS ORDERED: ONDANSETRON 4 MG/2 ML VIAL IV PRN (21:24)
[2018-06-16] MEDS ORDERED: GLUCAGON 1 MG/VIAL IM PRN (21:33)
[2018-06-16] MEDS ORDERED: D50W 25 GM/50 ML SYRINGE IV PRN (21:33)
[2018-06-16 21:36] VITALS: BMI 24.5
[2018-06-16] MEDS: NA CHLORIDE 0.9% 1,000 ML IV SCH (22:35)
[2018-06-17 05:45] LABS: Absolute Monocytes 0.7 K/uL (0.1-1.3); Absolute Neutrophil 4.3 K/uL (1.8-8.0); Basophils % 0.8 % (0-1.3); Eosinophils % 1.3 % (0-4.4); Lymphocytes % 16.1 % (15.3-44.8); MPV 8.6 fL (7.6-11.3); Monocytes % 10.9 % (3.3-12.3); RBC Red Blood Cell Count 4.45 M/uL (4.33-5.43)
[2018-06-17 06:02] LABS: ALT/SGPT 22 U/L (12-78); AST/SGOT 21 U/L (15-37); Albumin 2.8 g/dL (3.4-5.0); Alkaline Phosphatase 83 U/L (45-117); BUN Blood Urea Nitrogen 13 mg/dL (7-18); Bicarbonate 24 mmol/L (21-32); Bilirubin Total 0.7 mg/dL (0.2-1.0); Glucose Level 121 mg/dL (74-106); Potassium 3.6 mmol/L (3.5-5.1); Protein, Total 6.6 g/dL (6.4-8.2); Sodium Level 140 mmol/L (136-145)
--- NOTE | 2018-06-17 06:19 | EKG ---
Test Date: 2018-06-16 Test Time: 14:09:31 Plastics Technician: BP MEASUREMENT RESULTS: Intervals: Rate: 95 CO: 172 QRSD: 146 QT: 382 QTc: 480 [place]: P: 52 CO: 172 QRS: -48 T: -1 INTERPRETIVE STATEMENTS: Normal sinus rhythm Right bundle branch block Left anterior fascicular block Bifascicular block Abnormal ECG Compared to ECG 10/18/2017 11:18:17 Bifascicular block still present Electronically Signed On 06-17-18 06:15:57 POLLUTION CONTROL CHEMIST by Linwood Henry
[2018-06-17] MEDS: INSULIN -REGULAR HUMAN 50 UNIT/0.5 ML ML SQ SCH ×4 (07:30→21:00)
[2018-06-17] MEDS ORDERED: POTASSIUM CL SA 10 MEQ TAB PO ONE (09:00)
--- NOTE | 2018-06-17 12:07 | P.HP ---
Certification for Inpatient Patient admitted to: Inpatient With expected LOS: >2 Midnights Practitioner: I am a practitioner with admitting privileges, knowledge of patient current condition, hospital course, and medical plan of care. Services: Services provided to patient in accordance with Admission requirements found in Title 42 Section 412.3 of the Code of Federal Regulations Patient History Date of Service: 06/17/18 Reason for admission: CONFUSED History of Present Illness: MR MONTESINOS HAS LIVER CANCER TREATED BY [facility] IN [place]. I DON'T HAVE ANY LETTERS FROM THEM YET. HE COMES IN WITH CONFUSION, UNABLE TO RECOGNIZE PEOPLE , NOT ABLE TO NAME OBJECTS PER . HE IS LOT BETTER THIS AM BUT NOT TOTALLY WELL YET. ER PA ADMITTED HIM. Allergies No Known Allergies Allergy (Verified 10/18/17 17:17) Home Medications: Aspirin Chewable [Aspirin Chewable*] 81 mg PO DAILY 12/12/14 Metformin HCl [Glucophage*] 500 mg PO BIDWM 12/12/14 Metoprolol Tartrate [Lopressor*] 100 mg PO DAILY 12/12/14 Pravastatin [Pravachol*] 80 mg PO DAILY 12/12/14 Clopidogrel Bisulfate [Plavix] 75 mg PO DAILY 11/21/15 Finasteride [Proscar] 5 mg PO DAILY 10/18/17 Tamsulosin [Flomax] 0.4 mg PO BEDTIME 10/18/17 Pantoprazole [Protonix Tab] 40 mg PO DAILY 06/17/18 Sorafenib Tosylate [Nexavar] 200 mg PO DAILY 06/17/18 Sorafenib Tosylate [Nexavar] 200 mg PO DAILY 06/17/18 - Past Medical/Surgical History Has patient received pneumonia vaccine in the past: Yes Diabetic: Yes -: High Cholesteral -: HTN -: Arthritis -: diabetes -: prostate problems -: Pulmonary fibrosis -: liver -: Heart Stents -: Benign neck tumer - Family History Brother -: Hypertension, Liver disease Sister -: Hypertension Father -: Heart disease, Stroke Mother -: Cancer - Social History Smoking Status: Former smoker Alcohol use: No CD- Drugs: No Caffeine use: Yes Place of Residence: Home Review of Systems 10-point ROS is otherwise unremarkable General: As per HPI Physical Examination - Vital Signs Temperature: 97.8 F Blood Pressure: 116/57 Pulse: 73 Respirations: 18 Pulse Ox (%): 97 - Physical Exam General: Alert, In no apparent distress HEENT: Atraumatic, PERRLA, Mucous membr. moist/pink, EOMI, Sclerae nonicteric Neck: Supple, 2+ carotid pulse no bruit, No LAD, Without JVD or thyroid abnormality Respiratory: Clear to auscultation bilaterally, Normal air movement Cardiovascular: Regular rate/rhythm, Normal S1 S2 Gastrointestinal: Normal bowel sounds, No tenderness Musculoskeletal: No tenderness Integumentary: No rashes Neurological: Normal gait, Normal speech, Other (ABLE TO RECOGNIZE ME WITH SOME EFFORT. NOT ORIENTED TO TIME OR PLACE.) Lymphatics: No axilla or inguinal lymphadenopathy - Studies Laboratory Data (last 24 hrs) 06/16/18 14:15: PT 12.5, INR 1.06, APTT 27.7 06/16/18 14:15: WBC 7.7, Hgb 15.0, Hct 44.7, Plt Count 259 06/16/18 14:15: Sodium 137, Potassium 4.2, BUN 13, Creatinine 0.69, Glucose 165 H, Total Bilirubin 0.7, AST 30, ALT 28, Alkaline Phosphatase 104 Assessment and Plan - Problems (Diagnosis) (1) Altered mental status Current Visit: Yes Status: Acute Plan: HE MAY HAVE HAD A CVA. HE IS HIGH RISK FROM BEING A DIABETIC WITH HISTORY OF CAD AND AGE 73. I WILL DO MRI IN AM. [facility] ON [facility] WEEKEND. START ASPIRIN RESUME PLAVIX. START XIFAXAN IN CASE HE HAS HEPATIC ENCEPHALOPATHY. AMMONIA IS NORMAL. Qualifiers: Altered mental status type: disorientation Qualified Code(s): R41.0 - Disorientation, unspecified (2) Hepatic cancer Current Visit: Yes Status: Acute - Advance Directives Does patient have a Living Will: No Does patient have a Durable POA for Healthcare: No
[2018-06-17] MEDS: NA CHLORIDE 0.9% 1,000 ML IV SCH ×2 (12:12→17:09)
[2018-06-17] MEDS: Rifaximin 550 MG Tab PO SCH ×2 (13:00→21:54)
[2018-06-17] MEDS: ASPIRIN 81 MG CHEWABLE TABLET PO SCH (13:48)
[2018-06-17] MEDS: CLOPIDOGREL 75 MG TABLET PO SCH (13:48)
[2018-06-17] MEDS: FINASTERIDE 5 MG TAB PO SCH (13:48)
[2018-06-17] MEDS: METOPROLOL TAR 50 MG TAB PO SCH (13:48)
[2018-06-17] MEDS: PANTOPRAZOLE 40MG TABLET PO SCH (13:48)
[2018-06-17] MEDS ORDERED: NEXAVAR 200 MG PO SCH (16:00)
[2018-06-17] MEDS: METFORMIN HCL 500 MG TAB PO SCH (16:37)
[2018-06-17] MEDS ORDERED: ATORVASTATIN 10 MG TAB PO SCH (21:00)
[2018-06-17] MEDS ORDERED: TAMSULOSIN 0.4 MG SR CAP PO SCH (21:00)
[2018-06-18 02:41] VITALS: O2SAT 94
[2018-06-18 06:56] LABS: Absolute Lymphocytes (CBC) 0.8 K/uL (0.7-4.9); Absolute Monocytes 0.6 K/uL (0.1-1.3); Absolute Neutrophil 3.2 K/uL (1.8-8.0); Basophils % 0.7 % (0-1.3); Eosinophils % 2.7 % (0-4.4); Hematocrit 39.8 % (39.6-49.0); Lymphocytes % 17.4 % (15.3-44.8); MPV 8.4 fL (7.6-11.3); Monocytes % 11.6 % (3.3-12.3); RBC Red Blood Cell Count 4.27 M/uL (4.33-5.43)
[2018-06-18 07:11] LABS: ALT/SGPT 19 U/L (12-78); AST/SGOT 20 U/L (15-37); Albumin 2.7 g/dL (3.4-5.0); Alkaline Phosphatase 89 U/L (45-117); BUN Blood Urea Nitrogen 11 mg/dL (7-18); Bicarbonate 25 mmol/L (21-32); Bilirubin Total 0.3 mg/dL (0.2-1.0); Glucose Level 127 mg/dL (74-106); Magnesium 1.8 mg/dL (1.8-2.4); Phosphorus 1.9 mg/dL (2.5-4.9); Potassium 3.9 mmol/L (3.5-5.1); Protein, Total 6.1 g/dL (6.4-8.2); Sodium Level 142 mmol/L (136-145)
[2018-06-18] MEDS: INSULIN -REGULAR HUMAN 50 UNIT/0.5 ML ML SQ SCH ×2 (07:30→11:30)
[2018-06-18] MEDS ORDERED: HOME MED 1 EA UNK (Pravastatin [Pravachol*] 80 MG) PO SCH (09:00)
[2018-06-18] MEDS ORDERED: ASPIRIN EC 81 MG TAB PO SCH (09:00)
--- NOTE | 2018-06-18 09:17 | RAD REPORT ---
EXAM DESCRIPTION: MRI - Brain W/Wo Cont - 06/18/2018 9:04 am CLINICAL HISTORY: altered mental status, liver carcinoma CVA symptomology COMPARISON: Ct Stroke Brain Wo Cont dated 06/16/2018; Chest For Pe Angio dated 10/18/2017 TECHNIQUE: Multi-sequence, multiplanar MR imaging of the brain was performed with contrast. FINDINGS: No intracranial hemorrhage, hydrocephalus, or extra-axial fluid collection. Moderate confl uent T2/FLAIR hyperintensity in the periventricular and deep white matter is present compatible with chronic microvascular ischemic changes.. No intracranial mass. Several small foci of restricted diffusion are seen in the left subcortical white matter of the front al and parietal lobes. The largest is in the left frontal lobe measuring 5 mm and in the posterior pa rietal lobe measuring 6 mm. No T1 signal abnormality seen related to these. Several very small puncta te areas of restricted diffusion also seen in the left occipital lobe. The midline structures are normally formed. Mastoid air cells and paranasal sinuses are clear. Post-contrast images show no abnormal enhancement to suggest tumor or infection. IMPRESSION: Multiple small areas of restricted diffusion seen in the left cerebral hemisphere noted likely representing microinfarcts. No hemorrhagic component seen. No pathologic post-contrast enhance ment identified. Findings were discussed with Dr. Hall at 9:10 a.m. 06/18/2018 by telephone.
--- NOTE | 2018-06-18 10:30 | RAD REPORT ---
EXAM DESCRIPTION: US - CP - 06/18/2018 10:15 am CLINICAL HISTORY: CVA TIA/CVA COMPARISON: No comparisons TECHNIQUE: Real-time sonographic evaluation of both carotid systems was performed. Doppler interroga tion was performed with waveform tracing bilaterally. FINDINGS: Moderate hard plaquing is seen involving the right common carotid artery. Moderate hard pl aquing also noted in the right proximal internal carotid artery. Mild turbulent flow is seen in the r ight mid ICA without evidence of a hemodynamically significant stenosis. Moderate hard plaque is seen in the proximal left carotid artery/carotid bulb. A prominent soft plaqu e is also seen in the proximal left ICA measuring 10 x 5 mm and resulting in luminal narrowing estima miguel angel at 80% based on NASCET criteria. There is turbulent flow through this region along with elevated peak systolic velocity measurement of 285 cm/second. Left ICA to CCA ratio is elevated at 2.4. Antegrade flow seen in both vertebral arteries. IMPRESSION: A large soft plaque is present in the proximal left carotid artery near the bulb resulti ng in estimated stenosis of 80% with turbulent flow/ hemodynamic significance.
[2018-06-18] MEDS: METOPROLOL TAR 50 MG TAB PO SCH (10:39)
[2018-06-18] MEDS: PANTOPRAZOLE 40MG TABLET PO SCH (10:39)
[2018-06-18] MEDS: FINASTERIDE 5 MG TAB PO SCH (10:39)
[2018-06-18] MEDS: METFORMIN HCL 500 MG TAB PO SCH (10:39)
[2018-06-18] MEDS: CLOPIDOGREL 75 MG TABLET PO SCH (10:39)
[2018-06-18] MEDS: ASPIRIN 81 MG CHEWABLE TABLET PO SCH (10:39)
[2018-06-18] MEDS: NA CHLORIDE 0.9% 1,000 ML IV SCH (10:40)
[2018-06-18] MEDS ORDERED: MAGNESIUM SULFATE 1 gm IVPB 1 GM/100 ML BAG IV ONE (11:36)
[2018-06-18] MEDS ORDERED: POTASSIUM CL SA 10 MEQ TAB PO ONE (11:36)
[2018-06-18] MEDS: Rifaximin 550 MG Tab PO SCH (12:40)
[2018-06-18 12:53] VITALS: BP 168/77; TEMP 98.6
--- NOTE | 2018-06-19 21:47 | P.DS ---
Admission Date: 06/16/18 Discharge Date: 06/19/18 Disposition: ROUTINE DISCHARGE Discharge Condition: FAIR Reason for Admission: CONFUSED - Problems (1) Altered mental status Onset Date: 06/18/18 Status: Acute Qualifiers: Altered mental status type: disorientation Qualified Code(s): R41.0 - Disorientation, unspecified (2) Hepatic cancer Onset Date: 06/18/18 Status: Acute Brief History of Present Illness: MR MONTESINOS HAS LIVER CANCER TREATED BY [facility] IN [place]. I DON'T HAVE ANY LETTERS FROM THEM YET. HE COMES IN WITH CONFUSION, UNABLE TO RECOGNIZE PEOPLE , NOT ABLE TO NAME OBJECTS PER . HE IS LOT BETTER THIS AM BUT NOT TOTALLY WELL YET. ER PA ADMITTED HIM. MR. MONTESINOS HAS SMALL INFARCTS ON L SIDE OF BRAIN. HE HAS 80% CAROTID BLOCK ON L SIDE. I CALLED DR. TRAYLOR AND HAVE HIM SEEN IN 24 HOURS FOR STENT TO BE PLACED. I TALKED TO DAUGHTER TO GET HIM ASPIRIN 325 MG DAILY AND PLAVIX 75 MG DAILY. Vital Signs/Physical Exam: Temp Pulse Resp BP Pulse Ox 98.6 F 67 18 168/77 H 93 06/18/18 12:00 06/18/18 12:00 06/18/18 12:00 06/18/18 12:00 06/18/18 12:00 Laboratory Data at Discharge: WBC 4.8 K/uL (4.3-10.9) D 06/18/18 06:32 Hgb 13.5 g/dL (13.6-17.9) L 06/18/18 06:32 Hct 39.8 % (39.6-49.0) 06/18/18 06:32 Plt Count 249 K/uL (152-406) 06/18/18 06:32 PT 12.5 SECONDS (9.5-12.5) 06/16/18 14:15 INR 1.06 06/16/18 14:15 APTT 27.7 SECONDS (24.3-36.9) 06/16/18 14:15 Sodium 142 mmol/L (136-145) 06/18/18 06:32 Potassium 3.9 mmol/L (3.5-5.1) 06/18/18 06:32 BUN 11 mg/dL (7-18) 06/18/18 06:32 Creatinine 0.60 mg/dL (0.55-1.3) 06/18/18 06:32 Glucose 127 mg/dL (74-106) H 06/18/18 06:32 Phosphorus 1.9 mg/dL (2.5-4.9) L 06/18/18 06:32 Magnesium 1.8 mg/dL (1.8-2.4) 06/18/18 06:32 Total Bilirubin 0.3 mg/dL (0.2-1.0) 06/18/18 06:32 AST 20 U/L (15-37) 06/18/18 06:32 ALT 19 U/L (12-78) 06/18/18 06:32 Alkaline Phosphatase 89 U/L (45-117) 06/18/18 06:32 Home Medications: Metformin HCl [Glucophage*] 500 mg PO BIDWM 12/12/14 Metoprolol Tartrate [Lopressor*] 100 mg PO DAILY 12/12/14 Pravastatin [Pravachol*] 80 mg PO DAILY 12/12/14 Clopidogrel Bisulfate [Plavix] 75 mg PO DAILY 11/21/15 Finasteride [Proscar*] 5 mg PO DAILY 10/18/17 Tamsulosin [Flomax*] 0.4 mg PO BEDTIME 10/18/17 Pantoprazole [Protonix Tab*] 40 mg PO DAILY 06/17/18 Sorafenib Tosylate [Nexavar] 200 mg PO DAILY 06/17/18 Aspirin [Aspirin EC 325 MG] 325 mg PO DAILY 30 Days tablet. 06/18/18 New Medications: Aspirin [Aspirin EC 325 MG] 325 mg PO DAILY 30 Days tablet. Patient Discharge Instructions: TAKE ASPIRIN 325 MG DAILY AND PLAVIX DAILY. SEE DR. TRAYLOR IN AM. I CALLED HIM. Diet: AHA
== END 2018-06-18 14:55 | disposition home or self-care (01) | DRG 947 ==
LOC: ER 13:30 → ERHOLD 18:28 → 4TH 21:06
PROVIDERS: ADMIT Family Medicine; ATTEND Internal Medicine
DX: R41.0 Disorientation, unspecified (principal); I63.232 Cerebral infarction due to unspecified occlusion or stenosis of left carotid arteries; C22.8 Malignant neoplasm of liver, primary, unspecified as to type; Z87.891 Personal history of nicotine dependence; E78.00 Pure hypercholesterolemia, unspecified; I10 Essential (primary) hypertension; E11.9 Type 2 diabetes mellitus without complications; Z79.84 Long term (current) use of oral hypoglycemic drugs
CPT/HCPCS: 36415; 70450; 70553; 71045; 80053; 80307; 81003; 81015; 82140; 82962; 83735; 84100; 84484; 85025; 85610; 85730; 93005; 93880; 94760; 99291; 99292; A9577; J0456; J3475; J7030

== ENCOUNTER 2018-11-06 09:46 | Emergency (ER) | payer OTHER ==
--- OUTSIDE RECORDS SUMMARY | 2018-11-06 09:49 | XMS REPORT | Clinical Summary ---
:1945 Author Organization [facility] Address [address] [place] [address] Care Team Providers Name Role Phone Leon Hall MD Primary Care Provider Allergies No Known Allergies Medications Medication Sig Dispensed Refills Start Date End Date Status finasteride Take 5 mg by 0 04/28/2016 Active (PROSCAR) 5 mg mouth nightly. tablet metFORMIN Take 500 mg by 0 06/20/2016 Active (GLUCOPHAGE) 500 mg mouth 2 (two) tablet times a day with meals. metoprolol succinate Take 100 mg by 0 05/13/2016 Active XL (TOPROL-XL) 100 mouth daily. mg 24 hr tablet pravastatin Take 80 mg by 0 05/13/2016 Active (PRAVACHOL) 80 MG mouth daily. tablet tamsulosin (FLOMAX) Take 0.4 mg by 0 04/28/2016 Active 0.4 mg mouth daily. capsule,extended release 24hr pantoprazole Take 40 mg by 0 04/17/2018 Active (PROTONIX) 40 MG EC mouth daily as tablet needed. sorafenib tosylate Take 200 mg by 0 Active (NEXAVAR ORAL) mouth daily. acetaminophen Take 500 mg by 0 Active (TYLENOL) 500 MG mouth every 6 tablet (six) hours as needed for mild pain. aspirin (ECOTRIN) 81 Take 1 tablet 30 tablet 06/29/2018 Active MG enteric coated (81 mg total) 0 tablet by mouth daily for 360 days. clopidogrel (PLAVIX) Take 1 tablet 30 tablet 06/29/2018 Active 75 mg tablet (75 mg total) 0 by mouth daily for 360 days. clopidogrel (PLAVIX) Take 75 mg by 0 05/15/2016 Discontinued 75 mg tablet mouth daily. 9 ACCU-CHEK SOFTCLIX TEST ONCE A DAY 99 04/12/2016 Discontinued LANCETS lancets 9 levoFLOXacin Take 500 mg by 0 Discontinued (LEVAQUIN) 500 MG mouth daily. [address] 0.4 mg 0 Discontinued (NITROSTAT) 0.4 MG under the 9 SL tablet tongue every 5 (five) minutes as needed for chest pain. traMADol (ULTRAM) 50 Take 50 mg by 0 Discontinued mg tablet mouth every 6 9 (six) hours as needed for moderate pain. ketoconazole APPLY SPARINGLY 0 05/09/2018 Discontinued (NIZORAL) 2 % cream TO AFFECTED 9 AREA(S) TWICE DAILY hydrocortisone 2.5 % 0 05/09/2018 Discontinued cream 9 aspirin 325 MG Take 325 mg by 0 Discontinued tablet mouth daily. 9 Active Problems Problem Noted Date Carotid artery disease 06/20/2018 Overview: Added automatically from request for surgery [id number] Coronary artery disease involving [place] heart with angina pectoris 06/20/2018 Overview: Added automatically from request for surgery [id number] TIA (transient ischemic attack) 06/20/2018 Overview: Added automatically from request for surgery [id number] Transient ischemic attack (TIA) 06/19/2018 Stenosis of left carotid artery 06/19/2018 Coronary artery disease involving [place] coronary artery of [place] heart 07/14 without angina pectoris Essential hypertension 07/14/2016 History of coronary artery stent placement 07/14/2016 Encounters Date Type Specialty Care Team Description 07/17/2018 Office Visit Cardiology Walter Marcano Bilateral carotid artery stenosis (Primary Dx); MD Jaciel History of coronary artery stent placement; Coronary artery disease involving [place] coronary artery of [place] heart without angina pectoris 06/27/2018 Surgery Procedural Walter Marcano Cv carotid artery Cardiology MD Jaciel stent w embolic protection [25759 (CPT)] 06/27/2018 - Hospital Encounter General Internal Walter Marcano Carotid artery disease, unspecified laterality, unspecified type (HCC); 06/28/2018 Medicine MD Jaciel Coronary artery disease involving [place] heart with angina pectoris, unspecified vessel or lesion type (HCC); TIA (transient ischemic attack) 06/21/2018 Lab Lab Walter Marcano MD 06/20/2018 Orders Only Cardiology Mo[place], Carotid artery disease, unspecified laterality, unspecified type (HCC) (Primary Dx); CURRY iN Coronary artery disease involving [place] heart with angina pectoris, unspecified vessel or lesion type (HCC); TIA (transient ischemic attack) 06/20/2018 Orders Only Cardiology [place] Coronary artery [place], [place] disease involving [place] heart with angina pectoris, unspecified vessel or lesion type (HCC) (Primary Dx) 06/19/2018 Office Visit Cardiology Walter Marcano Transient ischemic attack ( TIA) (Primary Dx); MD Jaciel Essential hypertension; Coronary artery disease involving [place] coronary artery of [place] heart without angina pectoris; History of coronary artery stent placement; Stenosis of left carotid artery after 11/05/2017 Family History Medical History Relation Name Comments Coronary artery disease Father Relation Name Status Comments Father Social History Tobacco Use Types Packs/Day Years Used Date Former Smoker 2 15 Quit: 04/2003 Smokeless Tobacco: Former User Chew Quit: 2002 Tobacco Cessation: Counseling Given: No Alcohol Use Drinks/Week oz/Week Comments Yes Sex Assigned at Date Recorded Not on file Job Start Date Occupation Industry Not on file Not on file Not on file Travel History Travel Start Travel End No recent travel history available. Last Filed Vital Signs Vital Sign Reading Time Taken Blood Pressure 129/60 07/17/2018 3:37 PM [employer]LL GRINDER OPERATOR Pulse 69 07/17/2018 3:37 PM [employer]LL GRINDER OPERATOR Temperature 36.2 C (97.2 F) 06/28/2018 11:34 AM [employer]LL GRINDER OPERATOR Respiratory Rate 16 06/28/2018 11:34 AM ROLL GRINDER OPERATOR Oxygen Saturation 90% 06/28/2018 11:34 AM ROLL GRINDER OPERATOR Inhaled Oxygen Concentration - - Weight 77.6 kg (171 lb) 07/17/2018 3:37 PM [employer]LL GRINDER OPERATOR Height 167.6 cm (5' 6") 07/17/2018 3:37 PM ROLL GRINDER OPERATOR Body Mass Index 27.6 07/17/2018 3:37 PM ROLL GRINDER OPERATOR Plan of Treatment Date Type Specialty Care Team Description 01/15/2019 Appointment Procedural Cardiology 01/29/2019 Office Visit Cardiology Walter Marcano MD [address] [facility] [address] [place] [address] Health Maintenance Due Date Last Done Comments COLONOSCOPY SCREENING 1993 SHINGLES VACCINES (#1) 1993 65+ PNEUMOCOCCAL VACCINE (1 of 2 - PCV13) 01/18/2008 INFLUENZA VACCINE 12/13/2018 Implants Implanted Type Area Manager Warehouse Device Shelf Model / Identifier Expiration Serial / Date Lot Stent Crtd Xact Slf-Xpndbl Tprd Dante [id number] - [id number] Peripheral or N/A : [employer] 11/11/2018 [id number] / Implanted: 06/27/2018 (Quantity not on file) Biliary Stents N/A DEVICES / [id number] System Clsr Sut Meditd 6fr Perclose Proglide - [id number] Surgical N/A: [employer] 04/13/2020 [id number] / Implanted: 06/27/2018 (Quantity not on file) Implants; N/A DEVICES / Expanders; [id number] Extenders; Surgical Wires Procedures Procedure Name Priority Date/Time Associated Comments Diagnosis POC GLUCOSE Routine 06/28/2018 11:55 Results for this AM ROLL GRINDER OPERATOR procedure are in the results section. POC GLUCOSE Routine 06/28/2018 8:06 Results for this AM ROLL GRINDER OPERATOR procedure are in the results section. POC GLUCOSE Routine 06/27/2018 8:47 Results for this PM [employer]LL GRINDER OPERATOR procedure are in the results section. POC GLUCOSE Routine 06/27/2018 2:07 Results for this PM ROLL GRINDER OPERATOR procedure are in the results section. CV ANGIOGRAPHY Routine 06/27/2018 1:02 Carotid artery EXTERNAL CAROTID PM ROLL GRINDER OPERATOR disease, UNILATERAL unspecified laterality, unspecified type (HCC) Coronary artery disease involving [place] heart with angina pectoris, unspecified vessel or lesion type (HCC) TIA (transient ischemic attack) CV CAROTID ARTERY Routine 06/27/2018 1:02 Carotid artery STENTING PM ROLL GRINDER OPERATOR disease, unspecified laterality, unspecified type (HCC) Coronary artery disease involving [place] heart with angina pectoris, unspecified vessel or lesion type (HCC) TIA (transient ischemic attack) ACTIVATED CLOTTING Routine 06/27/2018 12:30 Results for this TIME PM ROLL GRINDER OPERATOR procedure are in the results section. ACTIVATED CLOTTING Routine 06/27/2018 12:28 Results for this TIME PM ROLL GRINDER OPERATOR procedure are in the results section. POC GLUCOSE Routine 06/27/2018 8:08 Results for this AM ROLL GRINDER OPERATOR procedure are in the results section. PROTHROMBIN TIME WITH Routine 06/21/2018 9:16 Coronary artery Results for this INR AM ROLL GRINDER OPERATOR disease involving procedure are in [place] heart with the results angina pectoris, section. unspecified vessel or lesion type (HCC) COMPREHENSIVE Routine 06/21/2018 9:16 Coronary artery Results for this METABOLIC PANEL AM ROLL GRINDER OPERATOR disease involving procedure are in [place] heart with the results angina pectoris, section. unspecified vessel or lesion type (HCC) CBC WITH PLATELET AND Routine 06/20/2018 9:16 Coronary artery Results for this DIFFERENTIAL AM ROLL GRINDER OPERATOR disease involving procedure are in [place] heart with the results angina pectoris, section. unspecified vessel or lesion type (HCC) ECG 12-LEAD Routine 06/19/2018 9:05 Essential Results for this AM ROLL GRINDER OPERATOR hypertension procedure are in Coronary artery the results disease involving section. [place] coronary artery of [place] heart without angina pectoris after 11/05/2017 Results POC glucose (06/28/2018 11:55 AM ROLL GRINDER OPERATOR)Only the most recent of5 resultswithin the time period is included. [facility] POC glucose 165 (H) 65 - 99 mg/dL [facility] Comment: [facility] Notified RN Meter ID: [id number] Gas Compressor Operator: Pamela Valencia Specimen Performing Organization Address City/[facility]/Zipcode Phone Number [facility] DEPARTMENT OF PATHOLOGY AND [address] [place] [phone] Cv invasive peripheral vascular procedure (06/27/2018 1:02 PM ROLL GRINDER OPERATOR) Specimen Narrative Performed At Activated clotting time (06/27/2018 12:30 PM ROLL GRINDER OPERATOR)Only the most recent of2 resultswithin the time period is included. [facility] Activated clotting 351 (H) 96 - 152 sec [facility] time Comment: HOSPITAL Meter ID: [id number] Gas Compressor Operator: Javi Agarwal Specimen Performing Organization Address City/[facility]/Zipcode Phone Number [facility] DEPARTMENT OF PATHOLOGY AND [address] [place] [phone] Prothrombin time with INR (06/21/2018 9:16 AM ROLL GRINDER OPERATOR) [facility] INR 1.0 0.8 - 1.2 [facility] Comment: Reference interval is for non-anticoagulated patients. Suggested INR therapeutic range for Vitamin K antagonist therapy: Standard Dose (moderate intensity therapeutic range): 2.0 - 3.0 Higher intensity therapeutic range 2.5 - 3.5 Prothrombin time 10.8 9.1 - 12.0 sec [facility] Specimen Blood Narrative Performed At Performed at: - [id number] Senior Advisory: Delano Maradiaga MD, Phone:[phone] Performing Organization Address [facility] Phone Number [facility] Comprehensive metabolic panel (06/21/2018 9:16 AM ROLL GRINDER OPERATOR) Glucose 128 (H) 65 - 99 mg/dL [facility] BUN, whole blood 12 8 - 27 mg/dL [facility] Creatinine 0.63 (L) 0.76 - 1.27 mg/dL [facility] EGFR Non-Afr. [place] 96 >59 mL/min/1.73 [facility] EGFR 111 >59 mL/min/1.73 [facility] BUN/creatinine ratio 19 10 - 24 [facility] Sodium 140 134 - 144 mmol/L [facility] Potassium 5.0 3.5 - 5.2 mmol/L [facility] Chloride 98 96 - 106 mmol/L [facility] CO2 25 20 - 29 mmol/L [facility] Calcium 9.6 8.6 - 10.2 mg/dL [facility] Protein 6.9 6.0 - 8.5 g/dL [facility] Albumin, S 4.0 3.5 - 4.8 g/dL [facility] Globulin, total 2.9 1.5 - 4.5 g/dL [facility] Albumin/globulin ratio 1.4 1.2 - 2.2 [facility] Total bilirubin 0.4 0.0 - 1.2 mg/dL [facility] Alkaline phosphatase 89 39 - 117 IU/L [facility] AST 21 0 - 40 IU/L [facility] ALT 18 0 - 44 IU/L [facility] Specimen Blood Narrative Performed At Performed at: - [id number] Senior Advisory: Delano Maradiaga MD, Phone:[phone] Performing Organization Address [facility] Phone Number [facility] CBC with platelet and differential (06/20/2018 9:16 AM ROLL GRINDER OPERATOR) WBC 6.7 3.4 - 10.8 x10E3/uL [facility] RBC 4.54 4.14 - 5.80 [facility] x10E6/uL HGB 14.5 13.0 - 17.7 g/dL [facility] HCT 43.3 37.5 - 51.0 % [facility] MCV 95 79 - 97 fL [facility] MCH 31.9 26.6 - 33.0 pg [facility] MCHC 33.5 31.5 - 35.7 g/dL [facility] RDW 15.6 (H) 12.3 - 15.4 % [facility] Platelet count 266 150 - 379 x10E3/uL [facility] Neutrophils 68 Not Estab. % [facility] Lymphocytes 22 Not Estab. % [facility] Monocytes 7 Not Estab. % [facility] Eosinophils 2 Not Estab. % [facility] Basophils 1 Not Estab. % [facility] Neutrophils, absolute 4.6 1.4 - 7.0 x10E3/uL [facility] Lymphocytes, absolute 1.5 0.7 - 3.1 x10E3/uL [facility] Monocytes, absolute 0.5 0.1 - 0.9 x10E3/uL [facility] Eosinophils, absolute 0.1 0.0 - 0.4 x10E3/uL [facility] Basophils, absolute 0.0 0.0 - 0.2 x10E3/uL [facility] Immature granulocytes 0 Not Estab. % [facility] Immature grans (abs) 0.0 0.0 - 0.1 x10E3/uL [facility] Specimen Blood Narrative Performed At Performed at:[id number] Senior Advisory: Delano Maradiaga MD, Phone:[phone] Performing Organization Address City/State/Zipcode Phone Number [facility] ECG 12 lead (06/19/2018 9:05 AM ROLL GRINDER OPERATOR) Ventricular rate 86 [facility] Atrial rate 86 [facility] NE interval 152 [facility] QRSD interval 154 [facility] QT interval 404 [facility] QTC interval 483 [facility] P axis 1 55 [facility] QRS axis 1 -56 [facility] T wave axis 29 [facility] EKG impression Normal sinus rhythm-Right bundle branch block-Left anterior fascicular block-^^^ Bifascicular block ^^^-Moderate voltage criteria for LVH, may be normal variant-Abnormal ECG-In automated comparison with [facility] ECG of 18-JUN-2014 08:59,-No significant change was found- 8: 14:37 PM Specimen Narrative Performed At Performing Organization Address City/State/Zipcode Phone Number [facility] [address] [place] [address] after 11/05/2017 Insurance Payer Benefit Plan / Subscriber ID Effective Dates Phone Address Type Group [employer] MEDICARE HU[employer]NA MEDICARE xxxxxxxxx 2016-Present PPO PPO/PFFS/ERS [facility] Advance Directives Patient has advance care planning documents on file. For more information, please contact:Barrie Castellano[address] [place] [address]
--- OUTSIDE RECORDS SUMMARY | 2018-11-06 09:57 | XMS REPORT | Continuity of Care Document ---
:1945 Author Organization Interface Problems Problem Status Onset Classification Date Comments Source Date Reported PROCEDURE AND Active 08/23/19 [facility] SCHEDULE THE [facility] Medical [facility] Center DSU/TACE Active 08/18/[address] LABS- OPDIVIO Active 07/17/[address] OUTPATIENT/TACE OF Active 07/04/19 [facility] LIVER TUMORS Medical Center F/U Active 07/03/[address] LABS, F/U Active 05/24/[address] K59.00 - Active 05/04/20 [facility] CONSTIPATION, [address] [place] UNSPECIFIED Liver cell 04/12/20 10/25/2018 [facility] carcinoma [address] [place] [address] Center, OPID Brian FOLLOW UP/LABS Active 04/07/[address] Center Pulmonary 03/14/20 09/24/2018 [facility] fibrosis, Medical unspecified Center BEDDED OUTPATIENT/ Active 02/13/20 [facility] IMAGED GUIDED [address] [place] [address] TRANSAT Center HCC Active 01/31/[address] Center OUTPATIENT/Y 90 Active 01/20/20 [facility] PROCEDURE OF [address] [place] [address] HEPATOCELLU Center NEW PT CONSULT- Active 12/28/19 [facility] LIVER MASS [address] [place] [address] Center R26.2 - Active 05/11/20 [facility] "DIFFICULTY IN [address] [place] WALKING, NOT ELS" Hepatomegaly, not 09/24/2018 [facility] elsewhere Artemio Kelley classified H [facility] Knee pain, Resolved Problem 10/21/2018 [facility] bilateral Neuro, [facility] [place] Asbestosis Active Problem 10/21/2018 [facility], [facility] [place] BPH (<span Active Problem 10/21/2018 [facility] ID="[id number]"> Neuro, Confirmed</span>) [facility] [place] Chest pain Resolved Problem 10/21/2018 [facility], [facility] [place] CAD (<span Active Problem 10/21/2018 [facility] ID="[id number]"> Neuro, Confirmed</span>) [facility] [place] Prostate Resolved Problem 10/21/2018 [facility], [facility] [place] Chronic GERD Active Problem 10/21/2018 [facility], [facility] [place] High blood Active Problem 10/21/2018 [facility] cholesterol Neuro, [facility] [place] High blood Active Problem 10/21/2018 [facility] pressure Neuro, [facility] [place] Borderline Active Problem 10/21/2018 [facility] diabetes Neuro, [facility] [place] Liver mass Active Problem 10/21/2018 [facility], [facility] [place] Myocardial Resolved Problem 10/21/2018 [facility] infarction Neuro, [facility] [place] High blood Active Problem 08/01/2018 [facility] pressure Neuro, [facility] [place] Borderline Active Problem 08/01/2018 [facility], [facility] [place] Knee pain, Resolved Problem 10/25/2018 [facility] bilateral Neuro,[facility] Asbestosis Active Problem 10/25/2018 [facility] Neuro,[facility] BPH (<span Active Problem 10/25/2018 [facility] ID="[id number]"> Neuro, Confirmed</span>) [facility] Chest pain Resolved Problem 10/25/2018 [facility] CAD (<span Active Problem 10/25/2018 [facility] ID="[id number]"> Neuro, Confirmed</span>) [facility] Prostate Resolved Problem 10/25/2018 [facility] irregularity Neuro,[facility] Chronic GERD Active Problem 10/25/2018 [facility] Neuro,[facility] High blood Active Problem 10/25/2018 [facility] cholesterol Neuro,[facility] High blood Active Problem 10/25/2018 [facility] pressure Neuro,[facility] Borderline Active Problem 10/25/2018 [facility] Liver mass Active Problem 10/25/2018 [facility] Neuro,[facility] Myocardial Resolved Problem 10/25/2018 [facility] Fatty liver, not 07/18/2018 [facility] classified Center Type 2 diabetes 10/25/2018 [facility] mellitus without Medical complications Center Atherosclerotic 10/25/2018 [facility] heart disease of Medical [facility] coronary Center, artery without [facility] angina pectoris [place] Essential 10/25/2018 [facility] hypertension Medical [place] Benign prostatic 10/25/2018 [facility] hyperplasia Medical without lower Center urinary tract symptoms 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 [facility] 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 [facility] aspirin Medical Center Personal history 10/25/2018 [facility] of nicotine Medical dependence Center Other specified 08/21/2018 [facility] diseases of Medical pancreas Center Calculus of 10/21/2018 [facility] gallbladder Medical without Center, cholecystitis [facility] without [place] obstruction Knee pain, Resolved Problem 10/11/2018 [facility] bilateral Neuro, [facility] [place] Asbestosis Active Problem 10/11/2018 [facility], [facility] [place] BPH (<span Active Problem 10/11/2018 [facility] ID="[id number]"> Neuro, Confirmed</span>) [facility] [place] Chest pain Resolved Problem 10/11/2018 [facility], [facility] [place] CAD (<span Active Problem 10/11/2018 [facility] ID="[id number]"> Neuro, Confirmed</span>) [facility] [place] Prostate Resolved Problem 10/11/2018 [facility] irregularity Neuro, [facility] [place] Chronic GERD Active Problem 10/11/2018 [facility] Neuro, [facility] [place] High blood Active Problem 10/11/2018 [facility] cholesterol Neuro, [facility] [place] High blood Active Problem 10/11/2018 [facility] pressure Neuro, [facility] [place] Borderline Active Problem 10/11/2018 [facility] diabetes Neuro, [facility] [place] Liver mass Active Problem 10/11/2018 [facility] Neuro, [facility] [place] Myocardial Resolved Problem 10/11/2018 [facility] infarction Neuro, [facility] [place] 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 135 Asbestosis Active Problem 09/26/2018 [facility] Neuro,2.16 .840.1.113 883.3.615. 135 BPH (<span Active Problem 09/26/2018 [facility] ID="[id number]"> Neuro,2.16 Confirmed</span>) .840.1.113 883.3.615. 135 Chest pain Resolved Problem 09/26/2018 [facility] Neuro,2.16 .840.1.113 883.3.615. 135 CAD (<span Active Problem 09/26/2018 [facility] ID="[id number]"> Neuro,2.16 Confirmed</span>) .840.1.113 883.3.615. 135 Prostate Resolved Problem 09/26/2018 [facility] irregularity Neuro,2.16 .840.1.113 883.3.615. 135 Chronic GERD Active Problem 09/26/2018 [facility] Neuro,2.16 .840.1.113 883.3.615. 135 High blood Active Problem 09/26/2018 [facility] cholesterol Neuro,2.16 .840.1.113 883.3.615. 135 High blood Active Problem 09/26/2018 [facility] pressure Neuro,2.16 .840.1.113 883.3.615. 135 Borderline Active Problem 09/26/2018 [facility] diabetes Neuro,2.16 .840.1.113 883.3.615. 135 Liver mass Active Problem 09/26/2018 [facility] Neuro,2.16 .840.1.113 883.3.615. 135 Myocardial Resolved Problem 09/26/2018 [facility] infarction Neuro,2.16 .840.1.113 883.3.615. 135 Knee pain, Resolved Problem 08/01/2018 [facility] bilateral Neuro, [facility] [place] Asbestosis Active Problem 08/01/2018 [facility] Neuro, [facility] [place] BPH (<span Active Problem 08/01/2018 [facility] ID="[id number]"> Neuro, Confirmed</span>) [facility] [place] Chest pain Resolved Problem 08/01/2018 [facility] Neuro, [facility] [place] CAD (<span Active Problem 08/01/2018 [facility] ID="[id number]"> Neuro, Confirmed</span>) [facility] [place] Prostate Resolved Problem 08/01/2018 [facility] irregularity Neuro, OP[facility] [place] Chronic GERD Active Problem 08/01/2018 [facility] Neuro, SARAH Kelley High blood Active Problem 08/01/2018 [facility] cholesterol Neuro, SARAH Kelley Liver mass Active Problem 08/01/2018 [facility], SARAH [place] Myocardial Resolved Problem 08/01/2018 [facility] infarction Neuro, SARAH Kelley Old myocardial 10/25/2018 [facility] infarction Medical 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 09/05/2018 [facility] antithrombotics/an Medical tiplatelets Center Other chcf 10/25/2018 [facility] drug therapy Medical Center Esophagitis, 10/25/2018 [facility] unspecified Medical Center Interstitial 10/25/2018 [facility] pulmonary disease, Medical unspecified Center Chest pain, 10/25/2018 [facility] unspecified Medical Center Presence of 10/25/2018 [facility] coronary Medical angioplasty Center implant and graft Localized enlarged 09/24/2018 [facility] lymph nodes Medical Center Disease of stomach 09/24/2018 [facility] and duodenum, Medical unspecified Center Medications Medication Details Route Status Patient Ordering Order Source Instructions Provider Date tramadol 50 mg=1 tab, No Longer [facility] hydrochloride 50 PO, BID, # 30 Active 2019 Medical MG Oral Tablet tab, 0 Center Refill(s), given to patient levofloxacin 500 500 mg=1 tab, Active [facility] mg oral tablet PO, Daily, X 2019 Medical 5 day, # 5 Center tab, 0 Refill(s), Pharmacy: [facility] Fluticasone 2 spray, Active [facility] propionate 0.05 NASAL, Daily, 2019 Medical MG/ACTUAT Metered in each Center Dose Nasal [place] nostril, # 16 [Flonase] gm, 1 Refill(s), Pharmacy: [facility] bisacodyl 5 mg 10 mg=2 tab, No Longer [facility] oral enteric PO, Daily, Active 2019 Medical coated tablet PRN Center Constipation, X 10 day, # 20 tab, 0 Refill(s), Pharmacy: [facility] Fentanyl 50 microgram, Inactive [facility] Route: IV, 2019 Medical ONCE, Dosing Center Weight 77.273, kg, Start date: 07/19/18 11:44:00 CLINICAL APPLICATION MANAGER, Stop date: 07/19/18 11:44:00 CLINICAL APPLICATION MANAGER Midazolam 1 mg, Route: Inactive [facility] IV, ONCE, 2019 Medical Dosing Weight Center 77.273, kg, Start date: 07/19/18 11:44:00 CLINICAL APPLICATION MANAGER, Stop date: 07/19/18 11:44:00 CLINICAL APPLICATION MANAGER Rocephin 1 gm, Route: Inactive [facility] IV, ONCE, 2019 Medical Dosing Weight Center 77.273, kg, Start date: 07/19/18 11:09:00 CLINICAL APPLICATION MANAGER, Stop date: 07/19/18 11:09:00 CLINICAL APPLICATION MANAGER, ABX Indication: Surgical Prophylaxis Lidocaine 10 mL, Route: Inactive [facility] INTRADERM, 2019 Medical ONCE, Dosing Center Weight 77.273, kg, Start date: 07/19/18 10:31:00 CLINICAL APPLICATION MANAGER, Stop date: 07/19/18 10:31:00 CLINICAL APPLICATION MANAGER Fentanyl 50 microgram, Inactive [facility] Route: IV, 2019 Medical ONCE, Dosing Center Weight 77.273, kg, Start date: 07/19/18 10:26:00 CLINICAL APPLICATION MANAGER, Stop date: 07/19/18 10:26:00 CLINICAL APPLICATION MANAGER Midazolam 1 mg, Route: Inactive [facility] IV, ONCE, 2018 Medical Dosing Weight Center 77.273, kg, Start date: 07/19/18 10:26:00 CLINICAL APPLICATION MANAGER, Stop date: 07/19/18 10:26:00 CLINICAL APPLICATION MANAGER SORAfenib 200 mg 200 mg=1 tab, No Longer [place] oral tablet PO, Daily, # Active 2018 Medical 30 tab, 5 Center Refill(s), Pharmacy: [facility], icd10: C22.0 prochlorperazine 5 1 tab- 2 tab, No Longer [place] mg oral tablet PO, Q6H, PRN Active 2018 Medical Nausea & Center Vomiting, X 30 day, # 100 ea, 1 Refill(s), Pharmacy: [facility] SORAfenib 200 mg 200 mg=1 tab, No Longer [facility] oral tablet PO, BID, # 60 Active 2018 Medical tab, 3 Center Refill(s), given to patient Tylenol PO, PRN, 0 No Longer [facility] Refill(s) Active 2018 Medical Center Versed 1 mg, Route: Inactive [facility] IV, ONCE, 2018 Medical Dosing Weight Center 78.182, kg, Start date: 02/16/18 10:21:00 CDT, Stop date: 02/16/18 10:21:00 CDT Fentanyl 50 microgram, Inactive [place] Route: IV, 2017 Medical ONCE, Dosing Center Weight 78.182, kg, Start date: 02/16/18 10:21:00 CDT, Stop date: 02/16/18 10:21:00 CDT Lidocaine 6 mL, Route: Inactive [facility] Hydrochloride 10 INTRADERM, 2017 Medical MG/ML Injectable Dosing Weight Center Solution 78.182, kg, ONCE, Start date: 02/16/18 10:21:00 CDT, Stop date: 02/16/18 10:21:00 CDT Senna 8.6 mg oral 8.6 mg=1 tab, No Longer [place] tablet PO, Bedtime, Active 2017 Medical PRN for Center constipation, X 30 day, # 30 tab, 0 Refill(s), given to patient Fentanyl 50 microgram, Inactive [facility] Route: IV, 2017 Medical ONCE, Dosing Center Weight 79.545, kg, Start date: 02/01/18 14:02:00 CDT, Stop date: 02/01/18 14:02:00 CDT Lidocaine 1 mL, Route: Inactive [place] INTRADERM, 2017 Medical ONCE, Dosing Center Weight 79.545, kg, Start date: 02/01/18 13:07:00 CDT, Stop date: 02/01/18 13:07:00 CDT Fentanyl 50 microgram, Inactive [facility] Route: IV, 2017 Medical ONCE, Dosing Center Weight 79.545, kg, Start date: 02/01/18 13:07:00 CDT, Stop date: 02/01/18 13:07:00 CDT pravastatin 80 mg 80 mg=1 tab, Active [place] oral tablet PO, Bedtime, 2018 Medical # 30 tab, 0 Center Refill(s) Metformin 500 mg=1 tab, Active [place] hydrochloride 500 PO, 2018 Medical MG Oral Tablet BID-Meals, # Center 30 tab, 0 Refill(s) clopidogrel 75 mg 75 mg=1 tab, Active [place] oral tablet PO, Daily, # 2018 Medical 30 tab, 0 Center Refill(s) omeprazole 40 mg 40 mg=1 cap, No Longer [facility] oral delayed PO, Daily, # Active 2018 Medical release capsule 30 cap, 0 Center Refill(s) metoprolol 0 Refill(s) Active [place] succinate 100 mg 2018 Medical oral capsule, Center extended release Allergies, Adverse Reactions, Alerts Substance Category Reaction Severity Reaction Status Date Comments Source type Reported No Known Assertion Drug [facility] Medication allergy Medical Allergies Center Immunizations Immunization Date Given Site Status Last Updated Comments Source Results Order Name Results Value Reference Date Interpretation Comments Source Range Abd Liver Abd Liver EXAM: CT ABDOMEN WITH AND WITHOUT CONTRAST 10/09 [facility] Protocol Protocol /2018 - [place] w/wo IV w/wo IV contrast CT contrast CT DATE: 10/09/2018 11:32 CDT Read by: Lauro Lieberman MD Dictated Date/time: 10/09/18 12:32 Electronically Signed by: Lauro Lieberman MD 10/09/18 13:16 FINAL REPORT INDICATION: C22.0 Liver cell carcinoma - Follow up for liver cancer ADDITIONAL INFORMATION: Found to have right liver lobe mass November 03, 2017. Patient underwent 190 embolization of right hepatic lobe February 2018 which was followed by a course of Sorafenib. July 19 9 underwent transarterial chemoembolization of the right hepatic lobe mass. He had residual disease and underwent repeat transarterial chemoembolization September 07, 2018. COMPARISON: None. TECHNIQUE: Volumetric CT acquisition of the abdomen both prior to and following intravenous contrast, in precontrast, arterial, portal venous and delayed phases of enhancement, per the dynamic liver pro tocol. Axial, sagittal and coronal reconstructions. IV contrast: 100 cc Omnipaque 300 Oral contrast: None 100 cc water DLP: 2590 mGy-cm FINDINGS: Lines and tubes: None. Lower thorax: UIP pattern of interstitial lung disease is seen and better characterized on a previous CT of the chest August 13, 2018 Liver: Craniocaudal length: 10.9 cm. Density: Normal. Surface nodularity: None.. Hepatic masses: Posttreatment cavity in hepatic segment 7 appears slightly smaller and measures 4.5 x 5.5 cm cross sectionally (previously reported measurement of 6.0 x 5.7 cm cross-sectionally. There i s a 0.7 cm enhancing nodule in the posterior superior aspect of this cavity (series 3 image 18) that is smaller from the previous exam where it measured up to 2.5 cm. Previously seen 0.8 cm arterially enhancing lesion in hepatic segment 4A (3 /40 of the prior exam) is not seen on the present study. Previously seen 1.8 cm arterially enhancing lesion in hepatic segment 5 (3/ 15 of the prior exam) is not appreciated on this exam. Calcified granulomas are present. Hepatic vessels: Hepatic arterial anatomy: Conventional. Arterial stenoses: None. Portal vein: Caliber: 1.4 cm. Portosystemic collaterals are None. Hepatic, splenic and superior mesenteric veins, and IVC: Patent. Regional lymph nodes: Normal. Biliary tree: No intra- or extrahepatic biliary ductal dilation. Gallbladder: Small dependent stones are present in the gallbladder. Pancreas: Atrophic with moderate to severe fatty replacement. Spleen: Calcified granulomas present in the spleen. Adrenals: Normal. Kidneys and ureters: Normal. Gastrointestinal tract: Stomach: Unremarkable. Small bowel: The visible portions are unremarkable. Colon: There is diverticular disease in the visualized ascending colon. No evidence of diverticulitis. Peritoneum and retroperitoneum:No fluid, free air or mass. Lymph nodes: Multiple subcentimeter lymph nodes in the periaortic, periesophageal, gastrohepatic, and aortocaval stations. There is a prominent aortocaval lymph node (3/200.5) that measures up to 1 cm i n the short axis that is unchanged. Additional smaller lymph nodes are present and stable appearing. Arteries: Atherosclerotic disease of the aorta and iliac arteries is unchanged. Veins:No thrombus seen. Bones: Degenerative changes of the spine are stable appearing. Soft tissues: Normal. IMPRESSION: 1. Interval decrease in size of the hepatic segment 7 posttreatment cavity. 2. Residual arterially enhancing nodule in the superior and posterior aspect of this cavity has decreased in size from the previous exam. LR TR viable. 3. Previously seen arterially enhancing lesions in hepatic segments 4A and 5 are not visualized on this exam. 4. UIP pattern of interstitial lung disease. This is better characterized on a previous CT scan of the chest. 5. Cholelithiasis. CHEM PANEL Phosphorus 2.4 mg/dL 2.5 - 4.5 / [address] CHEM PANEL Globulin 4.7 g/dL 2.7 - 4.2 09/[address] CHEM PANEL A/G Ratio 0.6 0.7 - 1.6 09/[address] CHEM PANEL B/C Ratio 16 6 - 25 09/[address] CHEM PANEL AGAP 13.1 meq/L 10.0 - 09/14 [facility] 20.0 [facility] CHEM PANEL Total 7.4 g/dL 6.4 - 8.4 09/14 [facility] Protein [address] CHEM PANEL Albumin Lvl 2.7 g/dL 3.5 - 5.0 09/[address] CHEM PANEL ALT 35 unit/L 0 - 65 09/[address] CHEM PANEL AST 31 unit/L 0 - 37 09/[address] CHEM PANEL Alk Phos 326 unit/L 39 - 136 09/[address] CHEM PANEL Bili Total 0.6 mg/dL 0.2 - 1.3 09/[address] CHEM PANEL eGFR 85 09/14 Result Comment: The eGFR is calculated using the CKD-EPI formula. In most young, healthy individuals the eGFR will be >90 mL/ min/1.73m2. The eGFR declines with age. An eGFR of 60-89 may be normal in [facility] mL/min/1.7 some populations, particularly the elderly, for whom the CKD-EPI formula has not been extensively validated. Use of the eGFR is not recommended in the following populations: [address] Individuals with unstable creatinine concentrations, including patients and those with serious co-morbid conditions. Patients with extremes in muscle mass or diet. The data above are obtained from the National Kidney Disease Education Program (NKDEP) which additionally recommends that when the eGFR is used in patients with extremes of body mass index for purposes of drug dosing, the eGFR should be multiplied by the estimated BMI. CHEM PANEL CO2 29 meq/L 24 - 32 09/[address] CHEM PANEL Chloride Lvl 98 meq/L 95 - 109 09/[address] CHEM PANEL Calcium Lvl 9.5 mg/dL 8.5 - 10.5 09/[address] CHEM PANEL Glucose Lvl 207 mg/dL 70 - 99 09/[address] CHEM PANEL Sodium Lvl 136 meq/L 135 - 145 09/[address] CHEM PANEL BUN 14 mg/dL 7 - 22 09/[address] CHEM PANEL Creatinine 0.85 mg/dL 0.50 - 05 [facility] 1.40 /2018 [facility] CHEM PANEL Potassium 4.1 meq/L 3.5 - 5.1 09/14 [facility] CHEM PANEL Magnesium 2.0 mg/dL 1.8 - 2.4 09/14 [facility] HEMATOLOGY PT 14.3 s 12.0 - 09/14 [facility] 14.7 /2018 [facility] HEMATOLOGY PTT 30.0 s 22.9 - 09/14 [facility] 35.8 /2018 [facility] HEMATOLOGY INR 1.13 0.85 - 09/14 [facility] 1.17 [facility] HEMATOLOGY Platelet 370 K/CMM 133 - 450 09/14 [facility] HEMATOLOGY MPV 7.8 fL 7.4 - 10.4 09/14 [facility] HEMATOLOGY MCHC 33.9 g/dL 32.0 - 09/14 [facility] 36.0 [facility] HEMATOLOGY RDW 15.1 % 11.5 - 09/14 [facility] 14.5 2019 [facility] HEMATOLOGY RBC 4.10 M/CMM 4.70 - 09/14 [facility] 6.10 [facility] HEMATOLOGY Hgb 13.5 g/dL 14.0 - 05 [facility] 18.0 [facility] HEMATOLOGY MCH 32.9 pg 27.0 - 09/14 [facility] 31.0 2019 [facility] HEMATOLOGY Hct 39.7 % 42.0 - 09/14 [facility] 54.0 /2018 [facility] HEMATOLOGY MCV 96.9 fL 80.0 - 09/14 [facility] 94.0 2019 [facility] HEMATOLOGY WBC 6.2 K/CMM 3.7 - 10.4 09/14 [facility] HEMATOLOGY Basophils # 0.1 K/CMM 0.0 - 0.2 09/14 [facility] HEMATOLOGY Monocytes # 0.7 K/CMM 0.0 - 0.8 09/14 [facility] HEMATOLOGY Eosinophils 0.1 K/CMM 0.0 - 0.5 09/14 [facility] /2018 [facility] HEMATOLOGY Lymphocytes 0.6 K/CMM 1.0 - 5.5 09/14 [facility] HEMATOLOGY Eosinophils 2.0 % 0.0 - 4.0 09/14 [facility] HEMATOLOGY Basophils 1.0 % 0.0 - 1.0 09/14 [facility] HEMATOLOGY Monocytes 11.7 % 2.0 - 12.0 09/14 [facility] HEMATOLOGY Segs 75.1 % 45.0 - 09/14 [facility] 75.0 [facility] HEMATOLOGY Lymphocytes 10.2 % 20.0 - 09/14 [facility] 40.0 [facility] HEMATOLOGY Neutrophils 4.7 K/CMM 1.5 - 8.1 09/14 [facility] # /2018 [facility] TUMOR AFP 41.7 ng/mL 0.0 - 11.0 09/14 [facility] MARKERS [facility] Angiogram Angiogram PROCEDURE: Hepatic transarterial chemoembolization - Drug -eluting beads 09/07 - [facility] visceral - [facility] artery Center initial VR initial VR Procedural Personnel Read by: Damian Stevens MD Dictated Date/time: 09/07/18 14:55 Attending physician(s): Damian Stevens MD Electronically Signed by : Damian Stevens MD 09/07/18 15:05 FINAL REPORT Fellow physician(s): Yvan Jacome MD Resident physician(s): None Advanced practice provider(s): None Pre-procedure diagnosis: HCC Post-procedure diagnosis: Same Indication: Locoregional therapy for tumor control. Patient underwent prior Y 90 and Tase, with residual small component. Additional clinical history: None Complications: No immediate complications. IMPRESSION: Hepatic angiography demonstrates supply to the residual tumor from a phrenic branch successfully treated with 40 mg of doxorubicin using drug- eluting beads (100-300 um). Plan: The patient will be discharged with one week of antibiotics, pain control and antiemetics. Follow-up triple phase liver CT in one month PROCEDURE SUMMARY: - Arterial access with ultrasound guidance - Aortography: Not performed - Visceral angiography: Celiac angiogram - Selective hepatic angiography: Phrenic angiogram, 3rd order. Right hepatic artery, 3rd order. - Superselective hepatic angiography: Phrenic angiogram, subselective branch feeding tumor. - Embolization and post-embolization angiography as described below - Additional procedure(s): Cone beam CT x3 PROCEDURE DETAILS: Pre-procedure Consent: Informed consent for the procedure including risks, benefits and alternatives was obtained and time-out was performed prior to the procedure. Preparation: The site was prepared and draped using maximal sterile barrier technique including cutaneous antisepsis. Anesthesia/sedation Level of anesthesia/sedation: Moderate sedation (conscious sedation) Anesthesia/sedation administered by: Nurse Total intra-service sedation time (minutes): 1 hour Access Local anesthesia was administered. . A 6-Fijian sheath was placed. Vessel accessed: Right common femoral artery Access technique: Ultrasound guidance Aortography Vessel catheterized: Not performed Findings: Not applicable Selective angiography The hepatic arterial system was catheterized using 2.4-Fijian prograde microcatheter. Variant anatomy: None Vessel catheterized: Phrenic artery Findings: Supply from the phrenic artery branch into the posterior aspect of the tumor. Drug-eluting bead chemoembolization Drug-eluting bead: LC beats, 100 mg of doxorubicin Drug-eluting bead size (micron): 100-300 um Vials of drug-eluting beads prepared: 1 Reconstituted volume of drug-eluting beads (mL): 20 Catheter position for embolization #1: 30 branch of the phrenic artery - Volume of reconstituted drug-eluting beads administered from this position (mL): 4 mL - Additional embolic administered from this position: None - Angiographic endpoint: 5 beats of stasis Advanced imaging Localized intra-operative cone-beam CT was performed with contrast pre- embolization. Images were transmitted to an independent workstation for 3D rendering and image review under concurrent physician supervision. Indication for advanced imaging: Localization of tumor supply Findings: 3rd order branch of the phrenic artery supplying the posterior aspect of the tumor. Completion angiography Vessel catheterized: Phrenic artery, right hepatic artery Findings: No residual tumor enhancement. Closure Access site angiography performed: Yes Findings: Patent vessel with appropriate access level Arterial closure technique: Angio-Seal. Hemostasis achieved from closure technique: Yes Duration of manual compression (minutes): 100 Contrast Contrast agent: Visipaque Contrast volume (mL): 100 Radiation Dose Fluoroscopy time (minutes): 9.8 Reference air kerma (mGy): 65.7 Additional Details Additional description of procedure: None Equipment details: None Specimens removed: None Estimated blood loss (mL): Less than 10 Standardized report: [email or web address] Attestation Signer name: Damian Stevens MD I attest that I was present for the entire procedure. I reviewed the stored images and agree with the report as written. CHEM PANEL Phosphorus 2.7 mg/dL 2.5 - 4.5 08/[address] CHEM PANEL LDH 197 unit/L 98 - 192 08/[address] CHEM PANEL A/G Ratio 0.5 0.7 - 1.6 08/[address] CHEM PANEL Globulin 5.2 g/dL 2.7 - 4.2 08/[address] CHEM PANEL eGFR 84 08/17 Result Comment: The eGFR is calculated using the CKD-EPI formula. In most young, healthy individuals the eGFR will be >90 mL/ min/1.73m2. The eGFR declines with age. An eGFR of 60-89 may be normal in [facility] mL/min/1.7 some populations, particularly the elderly, for whom the CKD-EPI formula has not been extensively validated. Use of the eGFR is not recommended in the following populations: [address] Individuals with unstable creatinine concentrations, including patients and those with serious co-morbid conditions. Patients with extremes in muscle mass or diet. The data above are obtained from the National Kidney Disease Education Program (NKDEP) which additionally recommends that when the eGFR is used in patients with extremes of body mass index for purposes of drug dosing, the eGFR should be multiplied by the estimated BMI. CHEM PANEL B/C Ratio 18 6 - 25 08/[address] CHEM PANEL AGAP 13.3 meq/L 10.0 - 08/17 [facility] 20.0 [facility] CHEM PANEL CO2 29 meq/L 24 - 32 08/[address] CHEM PANEL Chloride Lvl 97 meq/L 95 - 109 08/[address] CHEM PANEL Potassium 4.3 meq/L 3.5 - 5.1 08/17 [facility] CHEM PANEL BUN 16 mg/dL 7 - 22 08/[address] CHEM PANEL Creatinine 0.87 mg/dL 0.50 - 08/17 [facility] Lvl 1.40 [facility] CHEM PANEL Sodium Lvl 135 meq/L 135 - 145 08/[address] CHEM PANEL Glucose Lvl 184 mg/dL 70 - [address] CHEM PANEL ALT 102 unit/L 0 - 65 04 [facility]2018 [facility] CHEM PANEL Bili Total 0.5 mg/dL 0.2 - 1.3 08/[address] CHEM PANEL Total 7.6 g/dL 6.4 - 8.4 08/17 [facility] Protein 2018 [facility] CHEM PANEL AST 87 unit/L 0 - [address] CHEM PANEL Albumin Lvl 2.4 g/dL 3.5 - 5.0 08/[address] CHEM PANEL Alk Phos 376 unit/L 39 - 136 08/[address] CHEM PANEL Calcium Lvl 9.2 mg/dL 8.5 - 10.5 08/[address] CHEM PANEL Magnesium 1.9 mg/dL 1.8 - 2.4 08/17 [facility] /2018 [facility] HEMATOLOGY Segs 80.5 % 45.0 - 08/17 [facility] 75.0 [facility] HEMATOLOGY Lymphocytes 7.0 % 20.0 - 04 [facility] 40.0 [facility] HEMATOLOGY Monocytes 11.3 % 2.0 - 12.0 08/[address] HEMATOLOGY Eosinophils 0.3 % 0.0 - 4.0 08/[address] HEMATOLOGY Basophils # 0.1 K/CMM 0.0 - 0.2 08/[address] HEMATOLOGY Monocytes # 1.0 K/CMM 0.0 - 0.8 08/[address] HEMATOLOGY Basophils 0.9 % 0.0 - 1.0 08/[address] HEMATOLOGY Neutrophils 7.4 K/CMM 1.5 - 8.1 08/17 [facility] HEMATOLOGY Lymphocytes 0.6 K/CMM 1.0 - 5.5 04 [facility] HEMATOLOGY PTT 32.8 s 22.9 - 04/05 [facility] 35.8 /2018 [facility] HEMATOLOGY INR 1.19 0.85 - 04 [facility] 1.17 [facility] HEMATOLOGY PT 14.9 s 12.0 - 0405 [facility] 14.7 [facility] HEMATOLOGY WBC 9.1 K/CMM 3.7 - 10.4 08/17 [facility] HEMATOLOGY RBC 4.35 M/CMM 4.70 - 08/17 6.10 [facility] HEMATOLOGY Hgb 14.2 g/dL 14.0 - 08/17 [facility] 18.0 [facility] HEMATOLOGY MCH 32.6 pg 27.0 - 08/17 [facility] 31.0 [facility] HEMATOLOGY MCV 96.3 fL 80.0 - 08/17 [facility] 94.0 [facility] HEMATOLOGY RDW 14.5 % 11.5 - 08/17 [facility] 14.5 /2018 [facility] HEMATOLOGY MPV 8.0 fL 7.4 - 10.4 08/17 [facility] HEMATOLOGY Hct 41.8 % 42.0 - 08/17 [facility] 54.0 [facility] HEMATOLOGY Platelet 496 K/CMM 133 - 450 08/17 [facility] HEMATOLOGY MCHC 33.9 g/dL 32.0 - 08/17 [facility] 36.0 [facility] TUMOR AFP 14.9 ng/mL 0.0 - 11.0 08/17 [facility] MARKERS [facility] Chest wo Chest wo EXAM: CT CHEST WITHOUT CONTRAST 08/13 - [facility] contrast CT contrast CT /2018 [facility] DATE: 08/13/2018 12:19 CDT Read by: Marita Pritchard MD Dictated Date/time: 08/13/18 12:30 Electronically Signed by: Marita Pritchard MD 08/13/18 12:41 FINAL REPORT INDICATION: - 73 M HCC restaging scans schedule on 08/13/18/C22.0 Liver cell carcinoma/I73.9 Peripheral vascular disease, unspecified TECHNIQUE: Volumetric CT acquisition of the chest was obtained without contrast. Sagittal, coronal and axial MIP reformatted images were reconstructed and obtained at the workstation. Total Exam DLP: 598.36 mGy-- cm COMPARISON: Comparison is made with the prior chest CT dated 06/23/2018. FINDINGS: Cardiothoracic ratio measures 12.3/27.6 cm. Abundant aortic and diffuse coronary artery calcifications including the left main, left anterior descending , diagonal, left circumflex and right coronary art eries with stents. The ascending aorta does not measure enlarged. The pulmonary trunk is 28 mm, within normal size limits, the right pulmonary artery is prominent at 30 mm and the left pulmonary artery prominent measuring 27 mm. No pericardial effusion. There are no pleural effusions. For a description of findings below the diaphragm, please reference the concomitant abdominal CT report from the same day. Again seen are several subcentimeter infraclavicular and supraclavicular lymph nodes. Numerous lymph nodes throughout the mediastinum which remain increased in number and some increased in size. There a re numerous subcentimeter lymph nodes throughout all spaces of the mediastinum. Prominent lymph nodes include an 18 mm subcarinal lymph node and a 13 mm right paratracheal lymph node. These lymph nodes have not significantly changed. Again seen is pulmonary fibrosis. There is subpleural reticulation with honeycombing and traction bronchiectasis throughout the lungs with a peripheral and lower lobe predilection. The right lung remain s more involved than the left. Ground glass opacities are not a predominant finding. These findings have not significantly changed and are most suggestive of a UIP pattern of pulmonary fibrosis. No defi nite pulmonary nodules or masses identified. Note is made of calcified granulomas scattered in the right lung. Dependent edema in the chest wall. Degenerative changes of the thoracic spine with osteophytes. IMPRESSION: 1. Mediastinal lymph nodes remain increased in number and some are increased in size. They have not significantly changed since 06/23/2018. 2. Pulmonary fibrosis. 3. Aortic and diffuse coronary artery calcifications with stents. Abd Liver Abd Liver EXAM: CT ABDOMEN [facility] AND [facility]AST [facility] Protocol Protocol /2019 - Johnny w/wo IV w/wo IV This report was dictated by a Computer Engineering Technician/ Fellow/Physician [employer] T[employer] Captain. I have personally contrast CT contrast CT reviewed the images as well as the interpretation and agree with the findings. DATE: 08/13/2018 12:19 CDT Read by: Kraig Marcano MD Resident/Fellow/Physician [employer] T[employer] Captain: Kraig Marcano MD Dictated Date/time: 08/13/18 13:37 Electronically Signed by: Artis Luo MD 08/13/18 17:19 FINAL REPORT INDICATION: - 73 M HCC restaging scans schedule on 08/13/18//I73.9 Peripheral vascular disease, unspecified << No Exact Match >>/C22.0 Liver cell carcinoma ADDITIONAL INFORMATION: Y 90 radioembolization on 02/01/2018, TACE on 07/19. COMPARISON: Liver protocol CT abdomen 04/02/2018. TECHNIQUE: Volumetric CT abdomen is acquired both prior to and following intravenous contrast, in precontrast, arterial, portal venous and delayed phases of enhancement, per the dynamic liver protocol. Axial, sagittal and coronal images are provided. IV contrast: 100 mL of Omnipaque 300 Enteric contrast: None. DLP: Not provided mGy-cm FINDINGS: Lines, tubes and hardware: Coronary artery stents. Lower thorax: Bilateral lung fibrosis with honeycombing. Liver: Craniocaudal length: 11.6 cm. Hypertrophied left lateral lobe ([place] tail liver) Surface: Normal. Hepatic masses: * 6 cm x 5.7 cm irregular shaped treated cavity with foci of nodular enhancement in segment 7. The nodular foci of enhancement measures 2.3 cm x 2 cm , significantly decreased since 06/23/2018 when it m easured 5.7 cm x 2.7 cm. Pockets of gas is seen in the cavity. * Two 1.8 cm and 0.8 cm in segment 5 and one segment 4a arterially enhancing observation that are isodense on portal venous phase and delayed phase images (images 35, 40 and 58 series 3). * Two calcified granulomas. Non-enhancing/cystic hepatic lesions: None. Hepatic vessels: Hepatic arterial anatomy: Replaced left hepatic artery arising from left gastric artery. Portal vein: Patent. Caliber: 1.3 cm Portosystemic collaterals: None. Hepatic, splenic and superior mesenteric veins, and IVC: Patent. Biliary tree: No intra- or extrahepatic biliary ductal dilation. Gallbladder: Gallstones identified. No inflammation. Pancreas: Atrophied with fatty infiltration. Spleen: Calcified granuloma in spleen. Adrenals: Normal. Kidneys and ureters: Normal. Gastrointestinal tract: Stomach: Normal. Small bowel: Normal. Colon: Uninflamed diverticula. Peritoneum, mesentery and retroperitoneum: No free air, ascites or loculated fluid. Lymph nodes: Aortocaval node measuring 1 cm (image 87 series 3), with additional sub centimeter retroperitoneal nodes are unchanged since 04/02/2018. Extrahepatic vasculature: Aorta and branches: Moderate aortoiliac atherosclerotic calcification. IVC and veins: Patent. Bones: No acute abnormality. Age-related degenerative findings. Sclerotic foci in left ilium (images 135 series 3) likely bone island. Soft tissues: Normal. IMPRESSION: 1. Persistent albeit smaller nodular foci of enhancement in segment 7 of liver compared to prior study. LR TR Viable. 2. Segment 5 and segment 4A arterially enhancing observation that are isodense on portal and delayed phase images likely arterioportal shunt. LR-3 3. Cholelithiasis without acute cholecystitis. 4. Bilateral lower lung fibrosis with honeycombing. URINE AND UA Turbidity Clear Clear 08/03 [facility] (08/03/18 12:50 PM) [place] URINE AND UA Color Seda Yellow 08/03 [facility] [address] [place], [place] [id number]* [place] (08/03/18 12:50 PM) URINE AND UA Leuk Est Negative Negative 08/03 [facility] (08/03/18 12:50 PM) [place] URINE AND UA Nitrite Positive Negative 08/03 [facility]* [place] (08/03/18 12:50 PM) URINE AND UA 4.0 EU/dL 0.1 - 1.0 08/03 [facility] Urobilinogen /[address] [place] [address] URINE AND UA Glucose 100 mg/dL Negative 08/03 [facility] mg/dL /[address] [place] [address] URINE AND UA Ketones Trace Negative 08/03 [facility] [address] [place] [address]* [place] (08/03/18 12:50 PM) URINE AND UA pH 5.0 5.0 - 8.0 08/03 [facility] [address] [place] [address] URINE AND UA Protein 30 mg/dL Negative 08/03 [facility] mg/dL /[address] [place] [address] URINE AND UA Blood Negative Negative 08/03 [facility] [address] [place] [address] (08/03/18 12:50 PM) [place] URINE AND UA Bili Moderate Negative 08/03 [facility] [address] [place], [place] [id number]* [place] (08/03/18 12:50 PM) URINE AND UA Spec Grav >=1.030 <=1.030 08/03 [facility] [address] [place], [place] [id number]* [place] (08/03/18 12:50 PM) URINE AND UA WBC 3-5 /HPF None Seen 08/03 [facility] /HPF /[address] [place] [address] URINE AND UA Sq Epi Rare /LPF Few /LPF 08/03 [facility] [address] [place] [address] URINE AND UA Bacteria Few /HPF None Seen 08/03 [facility] /HPF /2018 [facility] URINE AND UA RBC 0-2 /HPF 0 - 2 08/[address] URINE AND Micro? Performed 08/03 [facility]2018 [facility] (08/03/18 12:50 PM) [place] URINE AND UA Renal Epi 0-2 /LPF None Seen 08/[address] URINE AND UA Mucus Moderate None Seen 08/03 [facility] [address] CHEM PANEL Phosphorus 3.2 mg/dL 2.5 - 4.5 08/[address] CHEM PANEL Magnesium 2.0 mg/dL 1.8 - 2.4 08/03 [facility] [address] CHEM PANEL A/G Ratio 0.5 0.7 - 1.6 08/[address] CHEM PANEL Globulin 5.1 g/dL 2.7 - 4.2 08/[address] CHEM PANEL AST 155 unit/L 0 - 37 08/[address] CHEM PANEL ALT 103 unit/L 0 - 65 08/[address] CHEM PANEL Alk Phos 249 unit/L 39 - 136 08/[address] CHEM PANEL Bili Total 0.9 mg/dL 0.2 - 1.3 08/[address] CHEM PANEL Albumin Lvl 2.7 g/dL 3.5 - 5.0 08/[address] CHEM PANEL Total 7.8 g/dL 6.4 - 8.4 08/03 [facility] Protein [address] CHEM PANEL eGFR 89 08/03 Result Comment: The eGFR is calculated using the CKD-EPI formula. In most young, healthy individuals the eGFR will be >90 mL/ min/1.73m2. The eGFR declines with age. An eGFR of 60-89 may be normal in [facility] mL/min/1.7 /2018 some populations, particularly the elderly, for whom the CKD-EPI formula has not been extensively validated. Use of the eGFR is not recommended in the following populations: [address] Individuals with unstable creatinine concentrations, including patients and those with serious co-morbid conditions. Patients with extremes in muscle mass or diet. The data above are obtained from the National Kidney Disease Education Program (NKDEP) which additionally recommends that when the eGFR is used in patients with extremes of body mass index for purposes of drug dosing, the eGFR should be multiplied by the estimated BMI. CHEM PANEL Calcium Lvl 9.5 mg/dL 8.5 - 10.5 08/[address] CHEM PANEL B/C Ratio 12 6 - 25 08/[address] CHEM PANEL AGAP 11.7 meq/L 10.0 - 08/03 [facility] 20.0 [facility] CHEM PANEL Potassium 4.7 meq/L 3.5 - 5.1 08/03 [facility] Lvl [facility] CHEM PANEL CO2 31 meq/L 24 - 32 08/03 [facility]2018 [facility] CHEM PANEL Chloride Lvl 99 meq/L 95 - 109 08/[address] CHEM PANEL Creatinine 0.76 mg/dL 0.50 - 08/03 [facility] Lvl 1.40 [facility] CHEM PANEL Sodium Lvl 137 meq/L 135 - 145 08/[address] CHEM PANEL BUN 9 mg/dL 7 - 22 08/[address] CHEM PANEL Glucose Lvl 152 mg/dL 70 - 99 08/[address] HEMATOLOGY Monocytes # 1.0 K/CMM 0.0 - 0.8 08/[address] HEMATOLOGY Neutrophils 5.4 K/CMM 1.5 - 8.1 08/03 [facility]2018 [facility] HEMATOLOGY Lymphocytes 0.6 K/CMM 1.0 - 5.5 08/[address] HEMATOLOGY Eosinophils 0.1 K/CMM 0.0 - 0.5 08/[address] HEMATOLOGY Basophils 0.2 % 0.0 - 1.0 08/03 [facility]2018 [facility] HEMATOLOGY Eosinophils 0.8 % 0.0 - 4.0 08/[address] HEMATOLOGY Monocytes 14.6 % 2.0 - 12.0 08/[address] HEMATOLOGY Lymphocytes 8.7 % 20.0 - 08/03 [facility] 40.0 [facility] HEMATOLOGY Segs 75.7 % 45.0 - 08/03 [facility] 75.0 [facility] HEMATOLOGY INR 1.16 0.85 - 08/03 [place] 1.17 [facility] HEMATOLOGY PTT 32.3 s 22.9 - 08/03 [place] 35.8 [facility] HEMATOLOGY PT 14.6 s 12.0 - 08/03 [place] 14.7 /2019 [facility] HEMATOLOGY MPV 8.1 fL 7.4 - 10.4 08/03 [facility] HEMATOLOGY Platelet 513 K/CMM 133 - 450 08/03 /2018 [facility] HEMATOLOGY MCV 96.6 fL 80.0 - 08/03 94.0 [facility] HEMATOLOGY MCH 33.2 pg 27.0 - 08/03 31.0 [facility] HEMATOLOGY MCHC 34.4 g/dL 32.0 - 08/03 [place] 36.0 [facility] HEMATOLOGY RDW 15.4 % 11.5 - 08/03 14.5 [facility] HEMATOLOGY RBC 4.35 M/CMM 4.70 - 08/03 [facility] 6.10 [facility] HEMATOLOGY Hct 42.1 % 42.0 - 08/03 54.0 [facility] HEMATOLOGY Hgb 14.5 g/dL 14.0 - 08/03 18.0 [facility] HEMATOLOGY WBC 7.1 K/CMM 3.7 - 10.4 08/03 /2018 [facility] TUMOR AFP 16.4 ng/mL 0.0 - 11.0 08/03 [facility] MARKERS [facility] Angiogram Angiogram PROCEDURE: Hepatic transarterial chemoembolization - Drug -eluting beads 07/19 - [facility] visceral - Medical artery artery This report was dictated by a Computer Engineering Technician/Fellow /Physician [employer] T[employer] Captain. I have personally Center initial VR initial VR reviewed the images as well as the interpretation and agree with the findings. Procedural Personnel Read by: Denver Rodas MD Resident/Fellow/Physician [employer] T[employer] Captain: Denver Rodas MD Dictated Date/time: 07/19/18 12:40 Attending physician(s): Damian Stevens MD Electronically Signed by: Damian Stevens MD 07/19/18 15:27 FINAL REPORT Fellow physician(s): Denver Rodas MD Resident physician(s): None Advanced practice provider(s): None Pre-procedure diagnosis: Hepatocellular carcinoma Post-procedure diagnosis: Same Indication: Locoregional therapy for tumor control Additional clinical history: None Complications: No immediate complications. IMPRESSION: 1. Variant anatomy with gastrohepatic trunk as before 2. 3 tertiary branches of right hepatic artery with tumoral blush in the right hepatic lobe 3. Post treatment changes with mild tumoral blush from peripheral branch of replaced left hepatic artery 4. No branches with tumoral blush from the right phrenic or right gastroepiploic arteries 5. Successful delivery of doxorubicin loaded beads to 3 right hepatic artery branches and 1 left hepatic artery branch Plan: 1. Discharge to home 2. Keep right leg straight for 2 hours 3. 7 days of Levofloxacin 750 mg PO daily and Metronidazole 500 mg PO Q8H 4. Follow up in IR clinic in 4 weeks with repeat multiphase liver CT PROCEDURE SUMMARY: - Arterial access with ultrasound guidance - Aortography: Not performed - Visceral angiography: Celiac and superior mesenteric angiography - Selective hepatic angiography: Three third order branches of the right hepatic, one third order branch left hepatic artery, 1 first order branch phrenic artery, 1 third order branch gastroepiploic artery - Embolization and post-embolization angiography: Four third order embolization branches - Additional procedure(s): Closure device PROCEDURE DETAILS: Pre-procedure Consent: Informed consent for [...] and a permanent image was stored. A 5F sheath was placed. Vessel accessed: Right common femoral artery Access technique: Micropuncture set with 21 gauge needle Aortography Vessel catheterized: Not performed Findings: Not applicable Selective angiography The hepatic arterial system was catheterized using a Rebecca 5F catheter , and microcatheter/wire. Variant anatomy: Gastrohepatic trunk Vessel catheterized: Right phrenic Findings: No tumoral blush. Delayed portal venogram demonstrates patent portal vein with hepatopetal flow. Vessel catheterized: SMA Findings: Normal anatomy with no hepatic branches Vessel catheterized: Celiac Findings: Gastrohepatic trunk. Tumoral blush in the right hepatic lobe Vessel catheterized: Right hepatic artery Findings: Tumoral blush from 3 tertiary branches corresponding to lesion from prior imaging Vessel catheterized: Replaced left hepatic artery Findings: Post treatment changes with mild tumoral blush Vessel catheterized: Branch arising from the right gastroepiploic artery Findings: No tumoral blush Drug-eluting bead chemoembolization Drug-eluting bead: Doxorubicin Drug-eluting bead size (micron): 100 Vials of drug-eluting beads prepared: 1 Reconstituted volume of drug-eluting beads (mL): 20 Catheter position for embolization #1-3: Three tertiary branches arising from the right hepatic artery - Volume of reconstituted drug-eluting beads administered from this position (mL): 5 ml to each - Additional embolic administered from this position: None - Angiographic endpoint: Near-stasis (not static, but contrast visible for at least 5 heartbeats) Catheter position for embolization #4: Peripheral branch arising from the replaced left hepatic artery - Volume of reconstituted drug-eluting beads administered from this position (mL): 5 - Additional embolic administered from this position: None - Angiographic endpoint: Near-stasis (not static, but contrast visible for at least 5 heartbeats) Chemotherapeutic agent: Doxorubicin Total chemotherapy dose administered (mg): 100 Advanced imaging NA Completion angiography Vessel catheterized: Celiac artery Findings: No residual tumoral blush Closure Access site angiography performed: Yes Findings: Position of arteriotomy suitable for closure device use Arterial closure technique: Angioseal Hemostasis achieved from closure technique: Yes Duration of manual compression (minutes): NA Contrast Contrast agent: Omnipaque Contrast volume (mL): 199 Radiation Dose Fluoroscopy time (min): 35 Dose (mGy): 1151 Additional Details Additional description of procedure: None Equipment details: None Specimens removed: None Estimated blood loss (mL): Less than 10 Standardized report: [id number] Attestation Signer name: Damian Stevens MD I attest that I was present for the entire procedure. I reviewed the stored images and agree with the report as written. CHEM PANEL Phosphorus 3.1 mg/dL 2.5 - 4.5 07/[address] CHEM PANEL Magnesium 2.0 mg/dL 1.8 - 2.4 07/06 [facility] CHEM PANEL eGFR 80 07/06 Result Comment: The eGFR is calculated using the CKD-EPI formula. In most young, healthy individuals the eGFR will be >90 mL/ min/1.73m2. The eGFR declines with age. An eGFR of 60-89 may be normal in [facility] mL/min/1.7 /2018 some populations, particularly the elderly, for whom the CKD-EPI formula has not been extensively validated. Use of the eGFR is not recommended in the following populations: [address] Individuals with unstable creatinine concentrations, including patients and those with serious co-morbid conditions. Patients with extremes in muscle mass or diet. The data above are obtained from the National Kidney Disease Education Program (NKDEP) which additionally recommends that when the eGFR is used in patients with extremes of body mass index for purposes of drug dosing, the eGFR should be multiplied by the estimated BMI. CHEM PANEL Bili Total 0.3 mg/dL 0.2 - 1.3 07/[address] CHEM PANEL Alk Phos 100 unit/L 39 - 136 07/[address] CHEM PANEL Albumin Lvl 3.3 g/dL 3.5 - 5.0 07/[address] CHEM PANEL Total 7.9 g/dL 6.4 - 8.4 07/06 [facility] Protein [address] [place] [address] CHEM PANEL AST 27 unit/L 0 - 37 07/[address] CHEM PANEL ALT 29 unit/L 0 - 65 07/[address] CHEM PANEL Sodium Lvl 141 meq/L 135 - 145 07/[address] CHEM PANEL Creatinine 0.93 mg/dL 0.50 - 07/06 [facility] Lvl 1.40 [facility] CHEM PANEL BUN 13 mg/dL 7 - 22 07/[address] CHEM PANEL Glucose Lvl 139 mg/dL 70 - 99 07/[address] CHEM PANEL Chloride Lvl 104 meq/L 95 - 109 07/[address] CHEM PANEL CO2 29 meq/L 24 - 32 07/[address] CHEM PANEL Calcium Lvl 9.4 mg/dL 8.5 - 10.5 07/[address] CHEM PANEL Potassium 4.0 meq/L 3.5 - 5.1 07/06 [facility] Lvl [facility] CHEM PANEL Globulin 4.6 g/dL 2.7 - 4.2 07/06 [facility]2018 [facility] CHEM PANEL B/C Ratio 14 6 - 25 07/[address] CHEM PANEL A/G Ratio 0.7 0.7 - 1.6 07/06 [facility]2018 [facility] CHEM PANEL AGAP 12.0 meq/L 10.0 - 07/06 20.0 [facility] HEMATOLOGY Monocytes # 0.8 K/CMM 0.0 - 0.8 07/06 [facility]2018 [facility] HEMATOLOGY Eosinophils 0.1 K/CMM 0.0 - 0.5 07/06 [facility] HEMATOLOGY Basophils # 0.1 K/CMM 0.0 - 0.2 07/06 [facility]2018 [facility] HEMATOLOGY Monocytes 14.2 % 2.0 - 12.0 07/[address] HEMATOLOGY Eosinophils 1.7 % 0.0 - 4.0 07/06 [facility]2018 [facility] HEMATOLOGY Basophils 0.9 % 0.0 - 1.0 07/[address] HEMATOLOGY Neutrophils 4.0 K/CMM 1.5 - 8.1 07/06 [facility] HEMATOLOGY Lymphocytes 1.0 K/CMM 1.0 - 5.5 07/06 [facility] HEMATOLOGY Segs 66.5 % 45.0 - 07/06 [facility] 75.0 [facility] HEMATOLOGY Lymphocytes 16.7 % 20.0 - 07/06 [place] 40.0 [facility] HEMATOLOGY INR 1.04 0.85 - 07/06 [place] 1.17 [facility] HEMATOLOGY PTT 27.0 s 22.9 - 07/06 [facility] 35.8 [facility] HEMATOLOGY PT 13.4 s 12.0 - 07/06 [place] 14.7 [facility] HEMATOLOGY RBC 4.27 M/CMM 4.70 - 07/06 [place] 6.10 [facility] HEMATOLOGY WBC 6.0 K/CMM 3.7 - 10.4 07/[address] HEMATOLOGY MCHC 33.5 g/dL 32.0 - 07/06 [place] 36.0 2019 [facility] HEMATOLOGY MCH 32.6 pg 27.0 - 07/06 [facility] 31.0 [facility] HEMATOLOGY Hgb 13.9 g/dL 14.0 - 07/06 [facility] 18.0 [facility] HEMATOLOGY MCV 97.1 fL 80.0 - 07/06 [facility] 94.0 [facility] HEMATOLOGY Hct 41.5 % 42.0 - 07/06 [facility] 54.0 [facility] HEMATOLOGY Platelet 349 K/CMM 133 - 450 07/06 [facility] HEMATOLOGY RDW 17.6 % 11.5 - 07/06 [facility] 14.5 [facility] HEMATOLOGY MPV 8.2 fL 7.4 - 10.4 07/06 [facility] /2018 [facility] TUMOR AFP 65.8 ng/mL 0.0 - 11.0 07/06 [facility] Abd Liver Abd Liver EXAM: CT ABDOMEN WITHOUT AND WITH CONTRAST 06/23 - [facility] Protocol Protocol /2018 - [place] w/wo IV w/wo IV This report was dictated by a Computer Engineering Technician/ Fellow/Physician Harbor Tug Captain. I have personally contrast CT contrast CT reviewed the images as well as the interpretation and agree with the findings. 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 COMPARISON: CT abdomen liver protocol 04/02/2018 TECHNIQUE: Volumetric CT acquisition of the abdomen both prior to and following intravenous contrast, in precontrast, arterial, portal venous and delayed phases of enhancement, per the dynamic liver pro tocol. Axial, sagittal and coronal reconstructions. IV contrast: 100 mL Visipaque Enteric contrast: None. DLP: 2261 mGy-cm FINDINGS: Lines, tubes and hardware: None. Lower thorax: * Unchanged fibrosis in bilateral lower lungs. * No pleural effusion. Liver: Craniocaudal length: 12.8 cm. Density: Normal. Surface: Normal. Hepatic masses: * No significant change in size of right hepatic lobe mass with areas of necrosis and areas of persistent enhancement with washout, measuring 6.8 x 7.7 cm, previously measured 6.6 x 7.4 (series 4 image 41). * Unchanged 8 mm arterially enhancing focus without washout or pseudocapsule in segment 5. * 2 small calcified granulomas. * No new hepatic lesions identified. Non-enhancing/cystic hepatic lesions: None. Hepatic vessels: Hepatic arterial anatomy: Conventional. Arterial stenoses: None. Portal vein: Patent. Caliber: 1 3 cm in caliber Portosystemic collaterals: None. Hepatic, splenic and superior mesenteric veins, and IVC: Patent. Lymph nodes: Stable subcentimeter retroperitoneal lymph nodes. Biliary tree: No intra- or extrahepatic biliary ductal dilation. Gallbladder: Cholelithiasis without evidence of cholecystitis. Pancreas: No mass or ductal dilation. Atrophic pancreas with fatty infiltration. Spleen: No splenomegaly. Small calcified granuloma. Adrenals: No nodularity or irregularity. Kidneys and ureters: No hydronephrosis of hydroureter. No solid or cystic renal lesions. Gastrointestinal tract: Stomach: Small hiatal hernia. Small bowel: Normal in caliber without evidence of obstruction or ileus. Colon: Normal. Peritoneum, mesentery and retroperitoneum: No free air, ascites or loculated fluid. Vasculature: Normal. Bones: No acute abnormality. Unchanged small lytic lesion within the right iliac bone (Series 6 images 122) Soft tissues: Normal. IMPRESSION: 1. No significant change in size of irregularly shaped mass with areas of necrosis and arterially enhancing areas involving hepatic segment 7 and 8 (LR TR viable). 2. Unchanged small arterially enhancing focus without washout or pseudocapsule in hepatic segment 5, likely arterioportal shunt. LR3 3. Cholelithiasis without evidence of cholecystitis. Chest wo Chest wo EXAM: CT CHEST WITHOUT CONTRAST 06/23 [facility] OPID contrast CT contrast CT /2018 [facility] DATE: 06/23/2018 12:42 CLINICAL APPLICATION MANAGER Read by: Marita Pritchard MD Dictated Date/time: 06/23/18 14:50 Electronically Signed by: Marita Pritchard MD 06/23/18 14:56 FINAL REPORT INDICATION: - 73 y/o HCC s/p Y90 restaging scans, schedule regional maintenance manager on 06/15/18 TECHNIQUE: Volumetric CT acquisition of the chest was obtained without contrast. Sagittal, coronal and axial MIP reformatted images were reconstructed and obtained at the workstation. Total Exam DLP: 2261.10 mGy-- cm COMPARISON: Comparison is made with the prior chest CT from an outside facility dated 01/12/2018. FINDINGS: Cardiothoracic ratio measures 13.3/27 cm. Aortic and abundant coronary artery calcifications including the left main, left anterior descending, left circumflex and right coronary arteries with coronary stents noted. Ascending aorta and pulmonary trunk do not measure enlarged. No pericardial effusion. There are no pleural effusions. For a description of findings below the diaphragm, please reference the concomitant abdomen and CT report from the same day. Numerous subcentimeter supraclavicular and infraclavicular lymph nodes which are increased in number. Numerous lymph nodes scattered throughout the mediastinum which are increased in number and some are increased in size. Lymph node in the AP window of the mediastinum is 11 mm , the paratracheal space 13 mm and the subcarinal space 18 mm. This has not significantly changed. Again seen is reticulation, peripheral honeycombing and traction bronchiolectasis throughout the lungs with a peripheral and lower lobe predilection. The right lung is more involved than the left. Groun d glass opacities are not a significant feature. These findings are suggestive of a UIP pattern of pulmonary fibrosis. Calcified granulomas right upper lobe. Degenerative changes of the thoracic spine with osteophytes. IMPRESSION: 1. Pulmonary fibrosis. 2. Mediastinal lymph nodes remain increased in number and in size. These could be reactive or metastatic. 3. Aortic and coronary artery calcifications with stents. Spine Spine lumbar EXAM: MRI LUMBAR SP[facility]/ - [place] contrast contrast MRI This report was dictated by a Computer Engineering Technician/Fellow/Physician Harbor Tug Captain. I have personally MRI reviewed the images as well as the interpretation and agree with the findings. DATE: 06/02/2018 at 0749 hours Read by: Nilo Medina MD Resident/Fellow/Physician Harbor Tug Captain: Nilo Medina MD Dictated Date/time: 06/04/18 09:07 [...] scan can be considered for further evaluation. CHEM PANEL Phosphorus 2.7 mg/dL 2.5 - 4.5 06/[address] CHEM PANEL Magnesium 2.0 mg/dL 1.8 - 2.4 06/01 [facility] CHEM PANEL A/G Ratio 0.7 0.7 - 1.6 06/[address] CHEM PANEL Globulin 4.5 g/dL 2.7 - 4.2 06/[address] CHEM PANEL Total 7.8 g/dL 6.4 - 8.4 06/01 [facility] Protein 2018 [facility] CHEM PANEL Albumin Lvl 3.3 g/dL 3.5 - 5.0 06/[address] CHEM PANEL Bili Total 0.6 mg/dL 0.2 - 1.3 06/[address] CHEM PANEL Alk Phos 109 unit/L 39 - 136 06/[address] CHEM PANEL AST 27 unit/L 0 - 37 06/[address] CHEM PANEL ALT 32 unit/L 0 - 65 06/[address] CHEM PANEL eGFR 89 06/01 Result Comment: The eGFR is calculated using the CKD-EPI formula. In most young, healthy individuals the eGFR will be >90 mL/ min/1.73m2. The eGFR declines with age. An eGFR of 60-89 may be normal in [facility] mL/min/1. some populations, particularly the elderly, for whom the CKD-EPI formula has not been extensively validated. Use of the eGFR is not recommended in the following populations: [address] Individuals with unstable creatinine concentrations, including patients and those with serious co-morbid conditions. Patients with extremes in muscle mass or diet. The data above are obtained from the National Kidney Disease Education Program (NKDEP) which additionally recommends that when the eGFR is used in patients with extremes of body mass index for purposes of drug dosing, the eGFR should be multiplied by the estimated BMI. CHEM PANEL Sodium Lvl 137 meq/L 135 - 145 06/[address] CHEM PANEL CO2 30 meq/L 24 - 32 06/[address] CHEM PANEL Chloride Lvl 100 meq/L 95 - 109 06/[address] CHEM PANEL Glucose Lvl 144 mg/dL 70 - 99 06/01 [facility]2018 [facility] CHEM PANEL Potassium 4.1 meq/L 3.5 - 5.1 06/01 [facility] /2018 [facility] CHEM PANEL Creatinine 0.76 mg/dL 0.50 - 06/01 [facility] Lvl 1.40 [facility] CHEM PANEL Calcium Lvl 9.2 mg/dL 8.5 - 10.5 06/01 [facility]2018 [facility] CHEM PANEL AGAP 11.1 meq/L 10.0 - 06/01 [facility] 20.0 [facility] CHEM PANEL B/C Ratio 14 6 - 25 06/01 [facility]2018 [facility] CHEM PANEL BUN 11 mg/dL 7 - 22 06/01 [facility]2018 [facility] HEMATOLOGY Segs 67.7 % 45.0 - 06/01 [facility] 75.0 [facility] HEMATOLOGY Basophils 0.9 % 0.0 - 1.0 06/01 [facility]2018 [facility] HEMATOLOGY Lymphocytes 21.5 % 20.0 - 06/01 [facility] 40.0 [facility] HEMATOLOGY Eosinophils 0.1 K/CMM 0.0 - 0.5 06/01 [facility] HEMATOLOGY Lymphocytes 1.2 K/CMM 1.0 - 5.5 06/01 [facility]2018 [facility] HEMATOLOGY Monocytes # 0.5 K/CMM 0.0 - 0.8 06/[address] HEMATOLOGY Eosinophils 1.2 % 0.0 - 4.0 06/01 [facility]2018 [facility] HEMATOLOGY Neutrophils 3.8 K/CMM 1.5 - 8.1 06/01 [facility] HEMATOLOGY Monocytes 8.7 % 2.0 - 12.0 06/[address] HEMATOLOGY INR 1.08 0.85 - 06/01 [facility] 1.17 [facility] HEMATOLOGY PT 13.8 s 12.0 - 06/01 [facility] 14.7 [facility] HEMATOLOGY PTT 27.2 s 22.9 - 06/01 [facility] 35.8 /2019 [facility] HEMATOLOGY MPV 8.1 fL 7.4 - 10.4 06/01 [facility]2018 [facility] HEMATOLOGY Platelet 243 K/CMM 133 - 450 06/01 [facility] HEMATOLOGY RDW 15.0 % 11.5 - 06/01 [facility] 14.5 [facility] HEMATOLOGY RBC 4.89 M/CMM 4.70 - 06/01 [facility] 6.10 [facility] HEMATOLOGY MCHC 33.4 g/dL 32.0 - 06/01 [facility] 36.0 [facility] HEMATOLOGY MCH 31.5 pg 27.0 - 06/01 [facility] 31.0 [facility] HEMATOLOGY Hct 46.0 % 42.0 - 06/01 [facility] 54.0 [facility] HEMATOLOGY MCV 94.2 fL 80.0 - 06/01 [facility] 94.0 [facility] HEMATOLOGY Hgb 15.4 g/dL 14.0 - 06/01 [facility] 18.0 [facility] HEMATOLOGY WBC 5.6 K/CMM 3.7 - 10.4 06/01 [facility] TUMOR AFP 55.0 ng/mL 0.0 - 11.0 06/01 [facility] MARKERS [facility] Abdomen Abdomen EXAM: ACUTE ABDOMINAL SERIES WITH CHEST 1 VIEW 05/04 - OPI acute acute series /2017 - [place] series w w chest 1 chest 1 view DX view DX DATE: 05/04/2018 12:54 CLINICAL APPLICATION MANAGER Read by: Aaron Tran MD Dictated Date/time: [...] WITH CONTRAST 04/02 - [facility] Protocol Protocol /2018 - [place] w/wo IV w/wo IV contrast CT contrast CT DATE: 04/02/2018 at 1238 hours Read [...] approximately 6.8 x 4.6 x 4.3 cm (4/, 601/62). Pseudocapsular enhancement is also noted on [...] 3. Unchanged regional lymph nodes. 4. Cholelithiasis. CHEM PANEL eGFR 82 03/08 Result Comment: The eGFR is calculated using the CKD-EPI formula. In most young, healthy individuals the eGFR will be >90 mL/ min/1.73m2. The eGFR declines with age. An eGFR of 60-89 may be normal in [facility] mL/min/1. some populations, particularly the elderly, for whom the CKD-EPI formula has not been extensively validated. Use of the eGFR is not recommended in the following populations: [address] Individuals with unstable creatinine concentrations, including patients and those with serious co-morbid conditions. Patients with extremes in muscle mass or diet. The data above are obtained from the National Kidney Disease Education Program (NKDEP) which additionally recommends that when the eGFR is used in patients with extremes of body mass index for purposes of drug dosing, the eGFR should be multiplied by the estimated BMI. CHEM PANEL CO2 29 meq/L 24 - 32 03/08 [facility] CHEM PANEL Sodium Lvl 139 meq/L 135 - 145 03/08 [facility] CHEM PANEL Calcium Lvl 9.0 mg/dL 8.5 - 10.5 03/08 [facility] CHEM PANEL Creatinine 0.91 mg/dL 0.50 - 03/08 [facility] Lvl 1.40 [facility] CHEM PANEL Potassium 4.2 meq/L 3.5 - 5.1 03/08 [facility] CHEM PANEL Chloride Lvl 101 meq/L 95 - 109 03/08 [facility] CHEM PANEL BUN 12 mg/dL 7 - 22 03/08 [facility] CHEM PANEL Glucose Lvl 109 mg/dL 70 - 99 03/08 2017 [facility] CHEM PANEL Alk Phos 106 unit/L 39 - 136 03/[address] CHEM PANEL AST 20 unit/L 0 - 37 03/08 2017 [facility] CHEM PANEL Albumin Lvl 3.2 g/dL 3.5 - 5.0 03/08 [facility] CHEM PANEL ALT 24 unit/L 0 - 65 03/08 2017 [facility] CHEM PANEL Total 7.7 g/dL 6.4 - 8.4 03/08 [facility] CHEM PANEL Bili Total 0.4 mg/dL 0.2 - 1.3 03/[address] CHEM PANEL B/C Ratio 13 - 25 03/[address] CHEM PANEL AGAP 13.2 meq/L 10.0 - 03/08 [place] 20.0 [facility] CHEM PANEL A/G Ratio 0.7 0.7 - 1.6 03/08 [facility] CHEM PANEL Globulin 4.5 g/dL 2.7 - 4.2 03/08 [facility] HEMATOLOGY PT 14.0 s 12.0 - 03/08 14.7 [facility] HEMATOLOGY PTT 26.7 s 22.9 - 03/08 [place] 35.8 [facility] HEMATOLOGY INR 1.08 0.85 - 03/08 [place] 1.17 [facility] HEMATOLOGY MPV 8.2 fL 7.4 - 10.4 03/08 [facility] HEMATOLOGY Platelet 270 K/CMM 133 - 450 03/08 [facility] HEMATOLOGY RDW 13.7 % 11.5 - 03/08 14.5 [facility] HEMATOLOGY Hct 44.0 % 42.0 - 03/08 [place] 54.0 [facility] HEMATOLOGY MCH 32.1 pg 27.0 - 03/08 [place] 31.0 [facility] HEMATOLOGY MCV 94.3 fL 80.0 - 03/08 94.0 [facility] HEMATOLOGY MCHC 34.0 g/dL 32.0 - 03/08 [facility] [place] 36.0 /2018 [facility] HEMATOLOGY Hgb 15.0 g/dL 14.0 - 03/08 [facility] 18.0 [facility] HEMATOLOGY RBC 4.67 M/CMM 4.70 - 03/08 [facility] 6. [facility] HEMATOLOGY WBC 6.5 K/CMM 3.7 - 10.4 03/[address] HEMATOLOGY Basophils # 0.1 K/CMM 0.0 - 0.2 03/08 2017 [facility] HEMATOLOGY Monocytes 13.3 % 2.0 - 12.0 03/08 2017 [facility] HEMATOLOGY Eosinophils 1.9 % 0.0 - 4.0 03/08 2017 [facility] HEMATOLOGY Lymphocytes 8.0 % 20.0 - 03/08 [facility] 40.0 [facility] HEMATOLOGY Segs 75.8 % 45.0 - 03/08 [facility] 75. [facility] HEMATOLOGY Eosinophils 0.1 K/CMM 0.0 - 0.5 03/08 [facility] HEMATOLOGY Monocytes # 0.9 K/CMM 0.0 - 0.8 03/08 2017 [facility] HEMATOLOGY Neutrophils 5.0 K/CMM 1.5 - 8.1 03/08 [facility] 2017 [facility] HEMATOLOGY Basophils 1.0 % 0.0 - 1.0 03/08 [facility]2017 [facility] HEMATOLOGY Lymphocytes 0.5 K/CMM 1.0 - 5.5 03/[address] TUMOR AFP 49.4 ng/mL 0.0 - 11.0 03/08 [facility] Radiorx TX Radiorx TX EXAM: NM Radiopharmaceutical therapy, intra-arterial particulate 02/16 - [facility] Intra Intra - Medical Arterial NM Arterial NM Center DATE: 02/16/2018 12:00 PM CDT Read by: Diana Meza MD Dictated Date/time: 02/16/18 15:18 Electronically Signed by: Diana Meza MD 02/16/18 15:26 FINAL REPORT INDICATION: [...] the tumor mass in the right liver. Liver SPECT Liver SPECT EXAM: [place] [facility] Static 02/16 [facility] - Medical EXAM: [facility] SPECT/CT Center Read by: Diana [...] of extrahepatic organ perfusion or lung shunting. Angiogram Angiogram PROCEDURE: Hepatic radioembolization - Radioisotope administration 02/16 - [facility] visceral visceral /2017 - Medical artery artery This report was dictated by a Computer Engineering Technician/ Fellow. I have personally reviewed the images as Center initial VR initial VR well as the Resident's interpretation and agree with the findings. Procedural Personnel Read by: Ismael Kelly MD Resident: Ismael Kelly MD Dictated Date/time: 02/16/18 13:41 Attending physician(s): Damian Stevens MD Electronically Signed by : Damian Stevens MD 02/19/18 15:12 FINAL REPORT Fellow physician(s): [...] and a permanent image was stored. A 5-Fijian sheath was placed. Vessel accessed: Right common [...] kerma (mGy): 992.6 Kerma area product (uGy-m2): 92068 Additional Details Additional description of procedure: None Equipment details: None Specimens removed: None Estimated blood loss (mL): Less than 10 Standardized report: [id number] Attestation Signer name: Damian Stevens MD I attest that I was present for the entire procedure. I reviewed the stored images and agree with the report as written. CHEM PANEL Phosphorus 3.4 mg/dL 2.5 - 4.5 02/[address] CHEM PANEL Magnesium 2.0 mg/dL 1.8 - 2.4 02/06 [facility] Lvl [address] CHEM PANEL Alk Phos 89 unit/L 39 - 136 02/[address] CHEM PANEL AST 20 unit/L 0 - 37 02/[address] CHEM PANEL A/G Ratio 0.8 0.7 - 1.6 02/[address] CHEM PANEL ALT 28 unit/L 0 - 65 02/[address] CHEM PANEL Total 7.8 g/dL 6.4 - 8.4 02/06 [facility] Protein [address] CHEM PANEL Globulin 4.4 g/dL 2.7 - 4.2 02/[address] CHEM PANEL Albumin Lvl 3.4 g/dL 3.5 - 5.0 02/[address] CHEM PANEL eGFR 86 02/06 Result Comment: The eGFR is calculated using the CKD-EPI formula. In most young, healthy individuals the eGFR will be >90 mL/ min/1.73m2. The eGFR declines with age. An eGFR of 60-89 may be normal in [facility] mL/min/1. some populations, particularly the elderly, for whom the CKD-EPI formula has not been extensively validated. Use of the eGFR is not recommended in the following populations: [place] [address] Center Individuals with unstable creatinine concentrations, including patients and those with serious co-morbid conditions. Patients with extremes in muscle mass or diet. The data above are obtained from the National Kidney Disease Education Program (NKDEP) which additionally recommends that when the eGFR is used in patients with extremes of body mass index for purposes of drug dosing, the eGFR should be multiplied by the estimated BMI. CHEM PANEL Calcium Lvl 9.6 mg/dL 8.5 - 10.5 02/06 [facility] CHEM PANEL CO2 31 meq/L 24 - 32 02/06 [facility]2017 [facility] CHEM PANEL Potassium 4.3 meq/L 3.5 - 5.1 02/06 [facility] l [facility] CHEM PANEL Chloride Lvl 103 meq/L 95 - 109 02/[address] CHEM PANEL Sodium Lvl 142 meq/L 135 - 145 02/[address] CHEM PANEL Creatinine 0.82 mg/dL 0.50 - 02/06 [facility] Lvl 1.40 [facility] CHEM PANEL BUN 22 mg/dL 7 - 22 02/[address] CHEM PANEL Glucose Lvl 110 mg/dL 70 - 99 02/[address] CHEM PANEL Bili Total 0.4 mg/dL 0.2 - 1.3 02/[address] CHEM PANEL AGAP 12.3 meq/L 10.0 - 02/06 [facility] 20.0 [facility] CHEM PANEL B/C Ratio 27 6 - 25 02/06 [facility]2017 [facility] HEMATOLOGY PT 13.2 s 12.0 - 02/06 [facility] 14.7 [facility] HEMATOLOGY PTT 27.1 s 22.9 - 02/06 [place] 35.8 /2017 [facility] HEMATOLOGY INR 1.00 0.85 - 02/06 [place] 1.17 [facility] HEMATOLOGY RBC 4.71 M/CMM 4.70 - 02/06 [place] 6.10 [facility] HEMATOLOGY Hct 45.4 % 42.0 - 02/06 [place] 54.0 [facility] HEMATOLOGY Hgb 15.3 g/dL 14.0 - 02/06 18.0 [facility] HEMATOLOGY MPV 9.1 fL 7.4 - 10.4 02/06 [facility] HEMATOLOGY MCHC 33.8 g/dL 32.0 - 02/06 36.0 [facility] HEMATOLOGY RDW 14.6 % 11.5 - 02/06 [facility] 14.5 [facility] HEMATOLOGY Platelet 282 K/CMM 133 - 450 02/06 [facility] HEMATOLOGY MCV 96.3 fL 80.0 - 02/06 [facility] 94.0 [facility] HEMATOLOGY MCH 32.5 pg 27.0 - 02/06 [facility] 31.0 [facility] HEMATOLOGY WBC 7.4 K/CMM 3.7 - 10.4 02/06 [facility] HEMATOLOGY Lymphocytes 1.5 K/CMM 1.0 - 5.5 02/06 [facility] /2017 [facility] HEMATOLOGY Monocytes # 0.8 K/CMM 0.0 - 0.8 02/06 [facility] HEMATOLOGY Eosinophils 0.1 K/CMM 0.0 - 0.5 02/06 [facility] HEMATOLOGY Neutrophils 5.0 K/CMM 1.5 - 8.1 02/06 [facility] [address] [place] [address] HEMATOLOGY Basophils 0.7 % 0.0 - 1.0 02/06 [facility] HEMATOLOGY Eosinophils 1.9 % 0.0 - 4.0 02/06 [facility] HEMATOLOGY Basophils # 0.1 K/CMM 0.0 - 0.2 02/06 [facility] HEMATOLOGY Segs 67.2 % 45.0 - 02/06 [place] 75.0 [facility] HEMATOLOGY Monocytes 10.3 % 2.0 - 12.0 02/[address] HEMATOLOGY Lymphocytes 19.9 % 20.0 - 02/06 [facility] 40.0 [facility] TUMOR AFP 69.9 ng/mL 0.0 - 11.0 02/06 [facility] MARKERS [facility] Liver SPECT Liver SPECT EXAM: [place] Pulmonary Perfusion Imaging Quantitative 02/01 - [facility] [place] /2017 - Medical EXAM: [place] Liver SPECT Center Read by: Diana Meza [...] is 5.6%. Lung scan Lung scan EXAM: [place] Pulmonary Perfusion Imaging Quantitative [facility] perfusion perfusion /2018 - Medical Quant Diff Quant Diff EXAM: [place] Liver SPECT [place] FX [place] FX [place] Read by: Diana Meza MD Dictated Date/time: [...] EXAM: VIR Y 90 mapping 02/01 - [facility] visceral visceral /2018 - Medical artery artery DATE: 02/01/2018 11:07 AM CDT This report was dictated by a Computer Engineering Technician/Fellow. I have personally reviewed the images as Center initial VR initial VR well as the Resident's interpretation and agree with the findings. PROCEDURE(S) PERFORMED: Read by: Ismael Kelly MD Resident: Ismael Kelly MD Dictated Date/time: 02/01/18 14:42 INDICATION: 73 years old Male with HCC. Electronically Signed by: Damian Stevens MD 02/02/18 08:27 FINAL REPORT FACULTY: Damian Stevens MD, Dudley Saini MD RESIDENT/FELLOW/CRYPTOGRAPHY TEACHER: Robin SUPERVISION: Level 1 Direct supervision: The [...] accessed with a micropuncture set. A 5 Fijian sheath was placed. The sheath was then connected to a pressurized heparinized saline infusion. Over a guidewire, a 5-Fijian SOS catheter was introduced. Selective catheterization of the superior mesenteric artery was performed. Contrast was injected and a mesenteric angiogram was performed demons trating a portal vein which is patent. The 5-Fijian catheter was used to select the celiac [...] of the left gastric artery. Next, a 2.4-Fijian Progreat microcatheter was advanced into the left [...] - liver mass 01/12 - [facility] contrast CT contrast CT /2017 - [facility] Comparison: Abdomen/pelvis CT dated 11/03/2017 Read by: [...] Assessment otherwise limited by noncontrast assessment. SL: [id number] CHEM PANEL Globulin 4.0 g/dL 2.7 - 4.2 12/[address] CHEM PANEL A/G Ratio 0.9 0.7 - 1.6 12/[address] CHEM PANEL Alk Phos 65 unit/L 39 - 136 12/[address] CHEM PANEL AST 23 unit/L 0 - 37 12/[address] CHEM PANEL ALT 27 unit/L 0 - 65 12/[address] CHEM PANEL Total 7.6 g/dL 6.4 - 8.4 12/29 [facility] 2017 [facility] CHEM PANEL Albumin Lvl 3.6 g/dL 3.5 - 5.0 12/29 [facility] CHEM PANEL Bili 0.5 mg/dL 0.0 - 1.0 12/29 [facility] CHEM PANEL Bili Total 0.6 mg/dL 0.2 - 1.3 12/29 [facility] CHEM PANEL Bili Direct 0.1 mg/dL 0.0 - 0.3 12/29 [facility]2017 [facility] CHEM PANEL eGFR 91 12/29 Result Comment: The eGFR is calculated using the CKD-EPI formula. In most young, healthy individuals the eGFR will be >90 mL/ min/1.73m2. The eGFR declines with age. An eGFR of 60-89 may be normal in [facility] mL/min/1.7 some populations, particularly the elderly, for whom the CKD-EPI formula has not been extensively validated. Use of the eGFR is not recommended in the following populations: [address] Individuals with unstable creatinine concentrations, including patients and those with serious co-morbid conditions. Patients with extremes in muscle mass or diet. The data above are obtained from the National Kidney Disease Education Program (NKDEP) which additionally recommends that when the eGFR is used in patients with extremes of body mass index for purposes of drug dosing, the eGFR should be multiplied by the estimated BMI. CHEM PANEL Calcium Lvl 9.2 mg/dL 8.5 - 10.5 12/29 [facility] CHEM PANEL CO2 28 meq/L 24 - 32 12/29 [facility]2017 [facility] CHEM PANEL Chloride Lvl 102 meq/L 95 - 109 12/29 [facility]2017 [facility] CHEM PANEL Creatinine 0.74 mg/dL 0.50 - 12/29 [facility] Lvl 1.40 [facility] CHEM PANEL Potassium 3.9 meq/L 3.5 - 5.1 12/29 [facility] CHEM PANEL Sodium Lvl 140 meq/L 135 - 145 12/29 [facility]2017 [facility] CHEM PANEL Glucose Lvl 105 mg/dL 70 - 99 12/29 [facility] CHEM PANEL BUN 16 mg/dL 7 - 22 12/29 [facility]2017 [facility] CHEM PANEL AGAP 13.9 meq/L 10.0 - 12/29 [facility] 20.0 [facility] HEMATOLOGY PT 13.9 s 12.0 - 12/29 [facility] 14.7 [facility] HEMATOLOGY INR 1.07 0.85 - 12/29 [place] 1.17 [facility] HEMATOLOGY MPV 9.1 fL 7.4 - 10.4 12/29 [facility] HEMATOLOGY Platelet 284 K/CMM 133 - 450 12/29 [facility] HEMATOLOGY RDW 14.5 % 11.5 - 12/29 [place] 14.5 [facility] HEMATOLOGY Hgb 15.0 g/dL 14.0 - 12/29 [place] 18.0 [facility] HEMATOLOGY Hct 44.3 % 42.0 - 12/29 [place] 54.0 [facility] HEMATOLOGY MCV 96.1 fL 80.0 - 12/29 [place] 94.0 [facility] HEMATOLOGY MCHC 33.8 g/dL 32.0 - 12/29 [facility] 36.0 [facility] HEMATOLOGY MCH 32.5 pg 27.0 - 12/29 [facility] 31.0 [facility] HEMATOLOGY WBC 7.5 K/CMM 3.7 - 10.4 12/29 [facility] HEMATOLOGY RBC 4.61 M/CMM 4.70 - 12/29 [place] 6.10 [facility] HEMATOLOGY Basophils # 0.1 K/CMM 0.0 - 0.2 12/29 [facility] HEMATOLOGY Basophils 0.8 % 0.0 - 1.0 12/29 [facility] HEMATOLOGY Neutrophils 5.4 K/CMM 1.5 - 8.1 12/29 [facility] HEMATOLOGY Lymphocytes 1.3 K/CMM 1.0 - 5.5 12/29 [facility] HEMATOLOGY Monocytes # 0.7 K/CMM 0.0 - 0.8 12/29 [facility] HEMATOLOGY Eosinophils 0.1 K/CMM 0.0 - 0.5 12/29 [facility] HEMATOLOGY Monocytes 8.9 % 2.0 - 12.0 12/29 [facility] HEMATOLOGY Eosinophils 0.8 % 0.0 - 4.0 12/29 [facility] HEMATOLOGY Segs 72.1 % 45.0 - 12/29 [place] 75.0 [facility] HEMATOLOGY Lymphocytes 17.4 % 20.0 - 12/29 [place] 40.0 [facility] IMMUNOLOGY Hep B Core Positive Negative 12/29 [facility] Ab /2017 [facility] [place] (12/29/17 10:18 AM) IMMUNOLOGY Hep Bs Ab null <=7.4 12/29 [facility] mIU/mL [facility] IMMUNOLOGY Hep C Ab Negative 12/29 [facility] (12/29/17 10:18 AM) IMMUNOLOGY Hep Bs Ag Negative Negative 12/29 [facility] (12/29/17 10:18 AM) TUMOR AFP 41.5 ng/mL 0.0 - 11.0 12/29 [facility] MARKERS /2017 [facility] TUMOR CEA 2.8 ng/mL 0.0 - 3.0 12/29 [facility] MARKERS /[address] [place] [address] TUMOR CA 19-9 33.1 0.0 - 35.0 12/29 [facility] MARKERS unit/mL [facility] Torso-Outsi Torso-Outsid EXAM: CT ABDOMEN AND PELVIS WITH CONTRAST LIVER PROTOCOL 12/29 - [facility] de Consult e Consult CT - [facility] CT This report was dictated by a Computer Engineering Technician/Fellow. I have personally reviewed the images as [...] MR RIGHT KNEE WITHOUT CONTRAST 06/27 - OPI contrast contrast MRI /2016 - [facility] HISTORY: R26.2 Difficulty in walking, not elsewhere [...] Thank you for referring your patient to [facility] and [facility]. SL: [id number] Vital Signs Vital Sign Value Date Comments Source Weight 70.591 09/14/2018 [facility] BMI Calculated 25.62 09/14/2018 [facility] Height 166 cm 09/14/2018 [facility] Respitory Rate 16 09/14/2018 [facility] Temperature Oral (F) 98.5 F 09/14/2018 [facility] Heart Rate 92 09/14/2018 [facility] Systolic (mm Hg) 146 09/14/2018 [facility] Diastolic (mm Hg) 78 09/14/2018 [facility] BMI Calculated 25.62 08/17/2018 [facility] Height 166 cm 08/17/2018 [facility] Weight 70.6 08/17/2018 [facility] Systolic (mm Hg) 109 08/17/2018 [facility] Diastolic (mm Hg) 68 08/17/2018 [facility] Temperature Oral (F) 97.9 F 08/17/2018 [facility] Respitory Rate 16 08/17/2018 [facility] Heart Rate 85 08/17/2018 [facility] BMI Calculated 26.16 08/03/2018 [facility] Weight 72.091 08/03/2018 [facility] Height 166 cm 08/03/2018 [facility] Systolic (mm Hg) 117 08/03/2018 [facility] Diastolic (mm Hg) 73 08/03/2018 [facility] Respitory Rate 18 08/03/2018 [facility] Temperature Oral (F) 98.4 F 08/03/2018 [facility] Heart Rate 92 08/03/2018 [facility] Systolic (mm Hg) 178 07/19/2018 [facility] Diastolic (mm Hg) 87 07/19/2018 [facility] Respitory Rate 17 07/19/2018 [facility] Respitory Rate 14 07/19/2018 [facility] Systolic (mm Hg) 175 07/19/2018 [facility] Diastolic (mm Hg) 92 07/19/2018 [facility] Systolic (mm Hg) 167 07/19/2018 [facility] Diastolic (mm Hg) 87 07/19/2018 [facility] Respitory Rate 14 07/19/2018 [facility] Height 167.64 cm 07/19/2018 [facility] BMI Calculated 27.5 07/19/2018 [facility] Weight 77.273 07/19/2018 [facility] Weight 77.591 07/06/2018 [facility] BMI Calculated 28.16 07/06/2018 [facility] Height 166 cm 07/06/2018 [facility] Heart Rate 94 07/06/2018 [facility] Respitory Rate 18 07/06/2018 [facility] Temperature Oral (F) 97.9 F 07/06/2018 [facility] Systolic (mm Hg) 113 07/06/2018 [facility] Diastolic (mm Hg) 67 07/06/2018 [facility] BMI Calculated 26.9 06/01/2018 [facility] Height 166 cm 06/01/2018 [facility] Weight 74.136 06/01/2018 [facility] Temperature Oral (F) 97.5 F 06/01/2018 [facility] Respitory Rate 16 06/01/2018 [facility] Heart Rate 80 06/01/2018 [facility] Systolic (mm Hg) 131 06/01/2018 [facility] Diastolic (mm Hg) 79 06/01/2018 [facility] BMI Calculated 28.9 03/08/2018 [facility] Weight 78.773 03/08/2018 [facility] Height 165.1 cm 03/08/2018 [facility] Respitory Rate 18 03/08/2018 [facility] Systolic (mm Hg) 102 03/08/2018 [facility] Diastolic (mm Hg) 57 03/08/2018 [facility] Temperature Oral (F) 97.6 F 03/08/2018 [facility] Heart Rate 91 03/08/2018 [facility] Systolic (mm Hg) 124 02/16/2018 [facility] Diastolic (mm Hg) 69 02/16/2018 [facility] Respitory Rate 18 02/16/2018 [facility] Systolic (mm Hg) 141 02/16/2018 [facility] Diastolic (mm Hg) 65 02/16/2018 [facility] Respitory Rate 18 02/16/2018 [facility] Systolic (mm Hg) 161 02/16/2018 [facility] Diastolic (mm Hg) 86 02/16/2018 [facility] Respitory Rate 20 02/16/2018 [facility] Height 167.64 cm 02/16/2018 [facility] BMI Calculated 27.82 02/16/2018 [facility] Weight 78.182 02/16/2018 [facility] Weight 79.455 02/06/2018 [facility] Heart Rate 77 02/06/2018 [facility] Temperature Oral (F) 98 F 02/06/2018 [facility] Respitory Rate 18 02/06/2018 [facility] Systolic (mm Hg) 135 02/06/2018 [facility] Diastolic (mm Hg) 74 02/06/2018 [facility] Respitory Rate 24 02/01/2018 [facility] Systolic (mm Hg) 139 02/01/2018 [facility] Diastolic (mm Hg) 70 02/01/2018 [facility] Respitory Rate 23 02/01/2018 [facility] Systolic (mm Hg) 124 02/01/2018 [facility] Diastolic (mm Hg) 64 02/01/2018 [facility] Systolic (mm Hg) 135 02/01/2018 [facility] Diastolic (mm Hg) 72 02/01/2018 [facility] Respitory Rate 17 02/01/2018 [facility] BMI Calculated 26.66 02/01/2018 [facility] Height 172.72 cm 02/01/2018 [facility] Weight 79.545 02/01/2018 [facility] Height 167.64 cm 12/29/2017 [facility] Weight 78.182 12/29/2017 [facility] BMI Calculated 27.82 12/29/2017 [facility] Systolic (mm Hg) 122 12/29/2017 [facility] Diastolic (mm Hg) 69 12/29/2017 [facility] Heart Rate 81 12/29/2017 [facility] Respitory Rate 16 12/29/2017 [facility] Encounters Location Location Encounter Encounter Reason Attending ADM DC Status Source Details Type Number For Provider Date Date Visit Outpatient [id number] CHILO WYNN 05/04 Active [facility] Outpt Diag [id number] Adela 06/27 06/28 [facility]2016 [facility] [id number] CHILO WYNN 07[facility] [facility] [id number] [facility] 12[facility]29 [facility] [facility] Outpt Diag [id number] Clara 01/12 01/13 [facility] Kelly /2017 [facility] Bedded [id number] Damian 02/01 02/01 [facility]patient Stevens /2017 [facility] Oncology Recurring [id number] Leny Rodrigues 02/06 03/08 [facility] Bedded [id number] Damian 02/16 02/16 [facility] Oncology Recurring [id number] Leny Rodrigues 03/08 04/07 [facility] Specialty [id number] 03/08 03/09 2.16.840 [facility] /2017 .1.51963 Specialty 3.3.615. Pharmacy 135 [facility] Outpt Diag [id number] Leny Rodrigues 04/02 04/03 [facility] /2017 [facility] Rec[facility]ring [id number] Leny Rodrigues 06/01 07/01 [facility] /2018 [facility] Oncology [facility] Outpt Diag [id number] Lio 06/02 06/03 [facility] Phone [id number] 06/11 06/13 [facility] Message /2018 [facility] Phone [id number] 06/20 06/22 [facility] Message /2018 [facility] Outpt Diag [id number] Leny Rodrigues 06/23 06/24 [facility] /2018 [facility] [id number] JIM Shen 06/27 [facility] Ambulatory [id number] Beny 06/27 06/27 [facility] Pre-Reg [place] /2018 [facility] Oncology Recurring [id number] Leny Rodrigues 07/06 08/05 [facility] Bedded [id number] Damian 07/19 07/19 [facility] [place] [facility] Outpt Diag [id number] Leny Rodrigues 08/13 08/14 [facility] Infusion Recurring [id number] Leny Lilia 08/17 09/16 [place] [facility] /2018 Medical (INFT) [facility] Outpt Diag [id number] Damian 10/09 10/10 [facility] Procedures Procedure Code Date Perfomer Comments Source Vascular embolization [id number] 07/19/2018 [facility] inclusive of all Center radiological supervision and interpretation, intraprocedural roadmapping, and imaging guidance necessary to complete the intervention; for tumors, organ ischemia, or infarction Radiation therapy [id number] 02/15/2018 [facility] Neuro [facility] Radiation therapy [id number] 02/15/2018 [facility] [place] Radiation therapy [id number] 02/15/2018 [facility] Radiation therapy [id number] 02/15/2018 [facility] Radiation therapy [id number] 02/15/2018 2.16.840.1.11 care [id number] 5 Radiation therapy [id number] 02/15/2018 [facility] Examination of spine [id number] [facility] Neuro Stent replacement [id number] [facility] Neuro Examination of spine [id number] [facility] [place] Stent replacement [id number] [facility] Stent replacement [id number] [facility] Examination of spine [id number] [facility] Stent replacement [id number] [facility] Examination of spine [id number] [facility] [place] Stent replacement [id number] [facility] Examination of spine [id number] 2.16.840.1.11 [id number] 5 Stent replacement [id number] 2.16.840.1.11 [id number] 5 Examination of spine [id number] [facility]
--- OUTSIDE RECORDS SUMMARY | 2018-11-06 09:59 | XMS REPORT | Summary of Care ---
:1945 Author Organization [facility] Outpatient Imaging [place] Address [address] [place], [place] [address]- Encounter HQ Lisar_ed(FIN) [id number] Date(s): 04/02/18 - 04/02/18 [facility] Outpatient Imaging [address] [address]- [phone] Encounter Diagnosis Liver cell carcinoma (Final) - 04/06/18 Calculus of gallbladder without cholecystitis without obstruction (Final) - Discharge Disposition: Home or Self Care Attending Physician: Leny Rodrigues MD Referring Physician: Leny Rodrigues MD Vital Signs No data available for [...] Myocardial infarction(Confirmed) Resolved Allergies, Adverse Reactions, Alerts No Known Medication Allergies Medications No data available for this section [...] Frequency Former Smoker; 1, 2 entered on: 09/14/18 1pt states he stopped smoking 15 years ago.2pt former smoker Assessment and Plan No data available for this section
--- OUTSIDE RECORDS SUMMARY | 2018-11-06 09:59 | XMS REPORT | Summary of Care ---
:1945 Author Organization [facility] Address [address] [address]- Encounter HQ Lisar_ed(FIN) [id number] Date(s): 07/06/18 - 08/04/18 [facility] [address] [facility] [address] [place] [address]- [phone] Discharge Disposition: Home or Self Care Attending Physician: Leny Rodrigues MD Referring Physician: Leny Rodrigues MD Vital Signs Most recent to oldest [Reference Range]: 1 2 Height 166 cm 166 cm (08/03/18 11:18 AM) (07/06/18 2:37 PM) Temperature Oral [96.4-99.1 DegF] 98.4 DegF 97.9 DegF (08/03/18 11:18 AM) (07/06/18 2:37 PM) Blood Pressure [90-140/60-90 mmHg] 117/73 mmHg 113/67 mmHg (08/03/18 11:18 AM) (07/06/18 2:37 PM) Respiratory Rate [14-20 BRMIN] 18 BRMIN 18 BRMIN (08/03/18 11:18 AM) (07/06/18 2:37 PM) Peripheral Pulse Rate [60-100 bpm] 92 bpm 94 bpm (08/03/18 11:18 AM) (07/06/18 2:37 PM) Weight 72.091 kg 77.591 kg (08/03/18 11:18 AM) (07/06/18 2:37 PM) Body Mass Index 26.16 m2 28.16 m2 (08/03/18 11:18 AM) (07/06/18 2:37 PM) Problem List Condition Effective Dates Status Health Status Informant Knee pain, bilateral(Confirmed) Resolved Asbestosis(Confirmed) Active BPH (benign prostatic Active hyperplasia)(Confirmed) Chest pain(Confirmed) Resolved CAD (coronary artery Active disease)(Confirmed) Prostate irregularity(Confirmed) Resolved Chronic GERD(Confirmed) Active High blood cholesterol(Confirmed) Active High blood pressure(Confirmed) Active Borderline diabetes(Confirmed) Active Liver mass(Confirmed) Active Myocardial infarction(Confirmed) Resolved Allergies, Adverse Reactions, Alerts Substance Reaction Severity Status NKDA Active Medications bisacodyl 5 mg oral enteric coated tablet 10 mg=2 tab, PO, Daily, PRN Constipation, X 10 day, # 20 tab, 0 Refill(s), [id number] Start Date: 07/27/18 Stop Date: 08/06/18 Status: CompletedFlonase 0.05 mg/inh nasal spray 2 spray, NASAL, Daily, in each nostril, # 16 gm, 1 Refill(s), [id number] Start Date: 08/03/18 Status: Orderedlevofloxacin 500 mg oral tablet 500 mg=1 tab, PO, Daily, X 5 day, # 5 tab, 0 Refill(s), [id number] Start Date: 08/03/18 Stop Date: 08/08/18 Status: Ordered Results ELECTROLYTES Most recent to oldest [Reference Range]: 1 2 Sodium Lvl [135-145 mEq/L] 137 mEq/L 141 mEq/L (08/03/18 10:44 AM) (07/06/18 2:25 PM) Potassium Lvl [3.5-5.1 mEq/L] 4.7 mEq/L 4.0 mEq/L (08/03/18 10:44 AM) (07/06/18 2:25 PM) Chloride Lvl [95-109 mEq/L] 99 mEq/L 104 mEq/L (08/03/18 10:44 AM) (07/06/18 2:25 PM) CO2 [24-32 mEq/L] 31 mEq/L 29 mEq/L (08/03/18 10:44 AM) (07/06/18 2:25 PM) AGAP [10.0-20.0 mEq/L] 11.7 mEq/L 12.0 mEq/L (08/03/18 10:44 AM) (07/06/18 2:25 PM) CHEM PANEL Most recent to oldest [Reference Range]: 1 2 Creatinine Lvl [0.50-1.40 mg/dL] 0.76 mg/dL 0.93 mg/dL (08/03/18 10:44 AM) (07/06/18 2:25 PM) eGFR 89 mL/min/1.73m2 1 80 mL/min/1.73m2 2 *NA* *NA* (08/03/18 10:44 AM) (07/06/18 2:25 PM) BUN [7-22 mg/dL] 9 mg/dL 13 mg/dL (08/03/18 10:44 AM) (07/06/18 2:25 PM) B/C Ratio [6-25] 12 14 (08/03/18 10:44 AM) (07/06/18 2:25 PM) Glucose Lvl [70-99 mg/dL] 152 mg/dL 139 mg/dL *HI* *HI* (08/03/18 10:44 AM) (07/06/18 2:25 PM) Total Protein [6.4-8.4 g/dL] 7.8 g/dL 7.9 g/dL (08/03/18 10:44 AM) (07/06/18 2:25 PM) Albumin Lvl [3.5-5.0 g/dL] 2.7 g/dL 3.3 g/dL *LOW* *LOW* (08/03/18 10:44 AM) (07/06/18 2:25 PM) Globulin [2.7-4.2 g/dL] 5.1 g/dL 4.6 g/dL *HI* *HI* (08/03/18 10:44 AM) (07/06/18 2:25 PM) A/G Ratio [0.7-1.6] 0.5 0.7 *LOW* (07/06/18 2:25 PM) (08/03/18 10:44 AM) Calcium Lvl [8.5-10.5 mg/dL] 9.5 mg/dL 9.4 mg/dL (08/03/18 10:44 AM) (07/06/18 2:25 PM) Phosphorus [2.5-4.5 mg/dL] 3.2 mg/dL 3.1 mg/dL (08/03/18 10:44 AM) (07/06/18 2:25 PM) Magnesium Lvl [1.8-2.4 mg/dL] 2.0 mg/dL 2.0 mg/dL (08/03/18 10:44 AM) (07/06/18 2:25 PM) ALT [0-65 unit/L] 103 unit/L 29 unit/L *HI* (07/06/18 2:25 PM) (08/03/18 10:44 AM) AST [0-37 unit/L] 155 unit/L 27 unit/L *HI* (07/06/18 2:25 PM) (08/03/18 10:44 AM) Alk Phos [39-136 unit/L] 249 unit/L 100 unit/L *HI* (07/06/18 2:25 PM) (08/03/18 10:44 AM) Bili Total [0.2-1.3 mg/dL] 0.9 mg/dL 0.3 mg/dL (08/03/18 10:44 AM) (07/06/18 2:25 PM) 1Result Comment: The eGFR is calculated using the CKD-EPI formula. In most young , healthy individualsthe eGFR will be >90 mL/min/1.73m2. The eGFR declines with age. An eGFR of 60-89 may be normal insome populations, particularly the elderly, for whom the CKD-EPI formula has not been extensively validated. Use of the eGFR is not recommended in the following populations: Individuals with unstable creatinine concentrations, including patients and those with serious co-morbid conditions. Patients with extremes in muscle mass or diet. The data above are obtained from the National Kidney Disease Education Program ( NKDEP) which additionally recommends that when the eGFR is used in patients with extremes of body mass index for purposesof drug dosing, the eGFR should be multiplied by the estimated BMI.2Result Comment: The eGFR is calculated using the CKD-EPI formula. In most young, healthy individualsthe eGFR will be >90 mL/min/1.73m2. The eGFR declines with age. An eGFR of 60-89 may be normal insome populations, particularly the elderly, for whom the CKD-EPI formula has not been extensively validated. Use of the eGFR is not recommended in the following populations: Individuals with unstable creatinine concentrations, including patients and those with serious co-morbid conditions. Patients with extremes in muscle mass or diet. The data above are obtained from the National Kidney Disease Education Program ( NKDEP) which additionally recommends that when the eGFR is used in patients with extremes of body mass index for purposesof drug dosing, the eGFR should be multiplied by the estimated BMI.URINE AND STOOL Most recent to oldest [Reference Range]: 1 2 UA Turbidity [Clear] Clear (08/03/18 12:50 PM) UA Color [Yellow] Seda *ABN* (08/03/18 12:50 PM) UA pH [5.0-8.0] 5.0 (08/03/18 12:50 PM) UA Spec Grav [<=1.030] >=1.030 *ABN* (08/03/18 12:50 PM) UA Glucose [Negative mg/dL] 100 mg/dL *ABN* (08/03/18 12:50 PM) UA Blood [Negative] Negative (08/03/18 12:50 PM) UA Ketones [Negative] Trace *ABN* (08/03/18 12:50 PM) UA Protein [Negative mg/dL] 30 mg/dL *ABN* (08/03/18 12:50 PM) UA Urobilinogen [0.1-1.0 EU/dL] 4.0 EU/dL *HI* (08/03/18 12:50 PM) UA Bili [Negative] Moderate *ABN* (08/03/18 12:50 PM) UA Leuk Est [Negative] Negative (08/03/18 12:50 PM) UA Nitrite [Negative] Positive *ABN* (08/03/18 12:50 PM) UA WBC [None Seen /HPF] 3-5 /HPF (08/03/18 12:50 PM) UA RBC [0-2 /HPF] 0-2 /HPF (08/03/18 12:50 PM) UA Bacteria [None Seen /HPF] Few /HPF (08/03/18 12:50 PM) UA Sq Epi [Few /LPF] Rare /LPF (08/03/18 12:50 PM) UA Renal Epi [None Seen /LPF] 0-2 /LPF *ABN* (08/03/18 12:50 PM) UA Mucus [None Seen /LPF] Moderate /LPF *ABN* (08/03/18 12:50 PM) Micro? Performed (08/03/18 12:50 PM) HEMATOLOGY Most recent to oldest [Reference Range]: 1 2 WBC [3.7-10.4 K/CMM] 7.1 K/CMM 6.0 K/CMM (08/03/18 10:44 AM) (07/06/18 2:25 PM) RBC [4.70-6.10 M/CMM] 4.35 M/CMM 4.27 M/CMM *LOW* *LOW* (08/03/18 10:44 AM) (07/06/18 2:25 PM) Hgb [14.0-18.0 g/dL] 14.5 g/dL 13.9 g/dL (08/03/18 10:44 AM) *LOW* (07/06/18 2:25 PM) Hct [42.0-54.0 %] 42.1 % 41.5 % (08/03/18 10:44 AM) *LOW* (07/06/18 2:25 PM) MCV [80.0-94.0 fL] 96.6 fL 97.1 fL *HI* *HI* (08/03/18 10:44 AM) (07/06/18 2:25 PM) MCH [27.0-31.0 pg] 33.2 pg 32.6 pg *HI* *HI* (08/03/18 10:44 AM) (07/06/18 2:25 PM) MCHC [32.0-36.0 g/dL] 34.4 g/dL 33.5 g/dL (08/03/18 10:44 AM) (07/06/18 2:25 PM) RDW [11.5-14.5 %] 15.4 % 17.6 % *HI* *HI* (08/03/18 10:44 AM) (07/06/18 2:25 PM) MPV [7.4-10.4 fL] 8.1 fL 8.2 fL (08/03/18 10:44 AM) (07/06/18 2:25 PM) Platelet [133-450 K/CMM] 513 K/CMM 349 K/CMM *HI* (07/06/18 2:25 PM) (08/03/18 10:44 AM) Segs [45.0-75.0 %] 75.7 % 66.5 % *HI* (07/06/18 2:25 PM) (08/03/18 10:44 AM) Lymphocytes [20.0-40.0 %] 8.7 % 16.7 % *LOW* *LOW* (08/03/18 10:44 AM) (07/06/18 2:25 PM) Monocytes [2.0-12.0 %] 14.6 % 14.2 % *HI* *HI* (08/03/18 10:44 AM) (07/06/18 2:25 PM) Eosinophils [0.0-4.0 %] 0.8 % 1.7 % (08/03/18 10:44 AM) (07/06/18 2:25 PM) Basophils [0.0-1.0 %] 0.2 % 0.9 % (08/03/18 10:44 AM) (07/06/18 2:25 PM) Neutrophils # [1.5-8.1 K/CMM] 5.4 K/CMM 4.0 K/CMM (08/03/18 10:44 AM) (07/06/18 2:25 PM) Lymphocytes # [1.0-5.5 K/CMM] 0.6 K/CMM 1.0 K/CMM *LOW* (07/06/18 2:25 PM) (08/03/18 10:44 AM) Monocytes # [0.0-0.8 K/CMM] 1.0 K/CMM 0.8 K/CMM *HI* (07/06/18 2:25 PM) (08/03/18 10:44 AM) Eosinophils # [0.0-0.5 K/CMM] 0.1 K/CMM 0.1 K/CMM (08/03/18 10:44 AM) (07/06/18 2:25 PM) Basophils # [0.0-0.2 K/CMM] 0.1 K/CMM (07/06/18 2:25 PM) PT [12.0-14.7 seconds] 14.6 seconds 13.4 seconds (08/03/18 10:44 AM) (07/06/18 2:25 PM) INR [0.85-1.17] 1.16 1.04 (08/03/18 10:44 AM) (07/06/18 2:25 PM) PTT [22.9-35.8 seconds] 32.3 seconds 27.0 seconds (08/03/18 10:44 AM) (07/06/18 2:25 PM) TUMOR MARKERS Most recent to oldest [Reference Range]: 1 2 AFP TM [0.0-11.0 ng/mL] 16.4 ng/mL 65.8 ng/mL *HI* *HI* (08/03/18 10:44 AM) (07/06/18 2:25 PM) Immunizations No data available for this section [...] Frequency Former Smoker; 1, 2 entered on: 08/03/18 1pt states he stopped smoking 15 years ago.2pt former smoker Assessment and Plan No data available for this section
--- OUTSIDE RECORDS SUMMARY | 2018-11-06 09:59 | XMS REPORT | Summary of Care ---
:1945 Author Organization [facility] Outpatient Imaging - [facility] Address [address] [place], [place] [address]- Encounter HQ Gennyntr_ed(FIN) [id number] Date(s): 08/13/18 - 08/13/18 [facility] Outpatient Imaging - [facility] [address] [place] [address]. [place] [address]- Discharge Disposition: Home or Self Care Attending [...]
--- OUTSIDE RECORDS SUMMARY | 2018-11-06 09:59 | XMS REPORT | Summary of Care ---
:1945 Author Organization [facility] Outpatient Imaging - [facility] Address [address] [place], [place] [address]- Encounter HQ Lisar_ed(FIN) [id number] Date(s): 10/09/18 - 10/09/18 [facility] Outpatient Imaging - [facility] [address] [place] [address]. [place] [address]- Discharge Disposition: Home or Self Care Attending Physician: Damian Stevens MD Referring Physician: Damian Stevens MD Vital Signs No data available for [...]
--- OUTSIDE RECORDS SUMMARY | 2018-11-06 09:59 | XMS REPORT | Summary of Care ---
:1945 Author Organization [facility] [place] [facility] Address [address] [place], [place] [address]- Encounter HQ Lisar_ed(FIN) [id number] Date(s): 08/17/18 - 09/15/18 [facility] [place] [facility] [address] [place] [address]- [phone] Discharge Disposition: Home or Self Care Attending Physician: Leny Rodrigues MD Referring Physician: Leny Rodrigues MD Vital Signs Most recent to oldest [Reference Range]: 1 2 Height 166 cm 166 cm (09/14/18 1:35 PM) (08/17/18 11:23 AM) Temperature Oral [96.4-99.1 DegF] 98.5 DegF 97.9 DegF (09/14/18 1:35 PM) (08/17/18 11:23 AM) Blood Pressure [90-140/60-90 mmHg] 146/78 mmHg 109/68 mmHg *HI* (08/17/18 11:23 AM) (09/14/18 1:35 PM) Respiratory Rate [14-20 BRMIN] 16 BRMIN 16 BRMIN (09/14/18 1:35 PM) (08/17/18 11:23 AM) Peripheral Pulse Rate [60-100 bpm] 92 bpm 85 bpm (09/14/18 1:35 PM) (08/17/18 11:23 AM) Weight 70.591 kg 70.6 kg (09/14/18 1:35 PM) (08/17/18 11:23 AM) Body Mass Index 25.62 m2 25.62 m2 (09/14/18 1:35 PM) (08/17/18 11:23 AM) Problem List Condition Effective Dates Status Health Status Informant Knee pain, bilateral(Confirmed) Resolved Asbestosis(Confirmed) Active BPH (benign prostatic Active hyperplasia)(Confirmed) Chest pain(Confirmed) Resolved CAD (coronary artery Active disease)(Confirmed) Prostate irregularity(Confirmed) Resolved Chronic GERD(Confirmed) Active High blood cholesterol(Confirmed) Active High blood pressure(Confirmed) Active Borderline diabetes(Confirmed) Active Liver mass(Confirmed) Active Myocardial infarction(Confirmed) Resolved Allergies, Adverse Reactions, Alerts No Known Medication Allergies Medications tramadol 50 mg oral tablet 50 mg=1 tab, PO, BID, # 30 tab, 0 Refill(s), given to patient Start Date: 08/17/18 Stop Date: 09/07/18 Status: Discontinued Results Most recent to oldest [Reference Range]: 1 2 Neutrophils # [1.5-8.1 K/CMM] 4.7 K/CMM 7.4 K/CMM (09/14/18 9:51 AM) (08/17/18 11:00 AM) Lymphocytes # [1.0-5.5 K/CMM] 0.6 K/CMM 0.6 K/CMM *LOW* *LOW* (09/14/18 9:51 AM) (08/17/18 11:00 AM) Monocytes # [0.0-0.8 K/CMM] 0.7 K/CMM 1.0 K/CMM (09/14/18 9:51 AM) *HI* (08/17/18 11:00 AM) Eosinophils # [0.0-0.5 K/CMM] 0.1 K/CMM (09/14/18 9:51 AM) Basophils # [0.0-0.2 K/CMM] 0.1 K/CMM 0.1 K/CMM (09/14/18 9:51 AM) (08/17/18 11:00 AM) eGFR 85 mL/min/1.73m2 1 84 mL/min/1.73m2 2 *NA* *NA* (09/14/18 9:51 AM) (08/17/18 11:00 AM) A/G Ratio [0.7-1.6] 0.6 0.5 *LOW* *LOW* (09/14/18 9:51 AM) (08/17/18 11:00 AM) AFP TM [0.0-11.0 ng/mL] 41.7 ng/mL 14.9 ng/mL *HI* *HI* (09/14/18 9:51 AM) (08/17/18 11:00 AM) Albumin Lvl [3.5-5.0 g/dL] 2.7 g/dL 2.4 g/dL *LOW* *LOW* (09/14/18 9:51 AM) (08/17/18 11:00 AM) Alk Phos [39-136 unit/L] 326 unit/L 376 unit/L *HI* *HI* (09/14/18 9:51 AM) (08/17/18 11:00 AM) ALT [0-65 unit/L] 35 unit/L 102 unit/L (09/14/18 9:51 AM) *HI* (08/17/18 11:00 AM) AGAP [10.0-20.0 mEq/L] 13.1 mEq/L 13.3 mEq/L (09/14/18:51 AM) (08/17/18:00 AM) AST [0-37 unit/L] 31 unit/L 87 unit/L (09/14/18 9:51 AM) *HI* (08/17/18 11:00 AM) B/C Ratio [6-25] 16 18 (09/14/18 9:51 AM) (08/17/18 11:00 AM) Basophils [0.0-1.0 %] 1.0 % 0.9 % (09/14/18 9:51 AM) (08/17/18 11:00 AM) BUN [7-22 mg/dL] 14 mg/dL 16 mg/dL (09/14/18 9:51 AM) (08/17/18 11:00 AM) Calcium Lvl [8.5-10.5 mg/dL] 9.5 mg/dL 9.2 mg/dL (09/14/18 9:51 AM) (08/17/18 11:00 AM) Chloride Lvl [95-109 mEq/L] 98 mEq/L 97 mEq/L (09/14/18 9:51 AM) (08/17/18 11:00 AM) CO2 [24-32 mEq/L] 29 mEq/L 29 mEq/L (09/14/18 9:51 AM) (08/17/18 11:00 AM) Creatinine Lvl [0.50-1.40 mg/dL] 0.85 mg/dL 0.87 mg/dL (09/14/18 9:51 AM) (08/17/18 11:00 AM) Eosinophils [0.0-4.0 %] 2.0 % 0.3 % (09/14/18 9:51 AM) (08/17/18 11:00 AM) Globulin [2.7-4.2 g/dL] 4.7 g/dL 5.2 g/dL *HI* *HI* (09/14/18 9:51 AM) (08/17/18 11:00 AM) Glucose Lvl [70-99 mg/dL] 207 mg/dL 184 mg/dL *HI* *HI* (09/14/18 9:51 AM) (08/17/18 11:00 AM) Hct [42.0-54.0 %] 39.7 % 41.8 % *LOW* *LOW* (09/14/18 9:51 AM) (08/17/18 11:00 AM) Hgb [14.0-18.0 g/dL] 13.5 g/dL 14.2 g/dL *LOW* (08/17/18 11:00 AM) (09/14/18 9:51 AM) INR [0.85-1.17] 1.13 1.19 (09/14/18 9:51 AM) *HI* (08/17/18 11:00 AM) Potassium Lvl [3.5-5.1 mEq/L] 4.1 mEq/L 4.3 mEq/L (09/14/18 9:51 AM) (08/17/18 11:00 AM) LDH [98-192 unit/L] 197 unit/L *HI* (08/17/18 11:00 AM) Lymphocytes [20.0-40.0 %] 10.2 % 7.0 % *LOW* *LOW* (09/14/18 9:51 AM) (08/17/18 11:00 AM) MCH [27.0-31.0 pg] 32.9 pg 32.6 pg *HI* *HI* (09/14/18 9:51 AM) (08/17/18 11:00 AM) MCHC [32.0-36.0 g/dL] 33.9 g/dL 33.9 g/dL (09/14/18 9:51 AM) (08/17/18 11:00 AM) MCV [80.0-94.0 fL] 96.9 fL 96.3 fL *HI* *HI* (09/14/18 9:51 AM) (08/17/18 11:00 AM) Magnesium Lvl [1.8-2.4 mg/dL] 2.0 mg/dL 1.9 mg/dL (09/14/18 9:51 AM) (08/17/18 11:00 AM) Monocytes [2.0-12.0 %] 11.7 % 11.3 % (09/14/18 9:51 AM) (08/17/18 11:00 AM) MPV [7.4-10.4 fL] 7.8 fL 8.0 fL (09/14/18 9:51 AM) (08/17/18 11:00 AM) Sodium Lvl [135-145 mEq/L] 136 mEq/L 135 mEq/L (09/14/18 9:51 AM) (08/17/18 11:00 AM) Phosphorus [2.5-4.5 mg/dL] 2.4 mg/dL 2.7 mg/dL *LOW* (08/17/18 11:00 AM) (09/14/18 9:51 AM) Platelet [133-450 K/CMM] 370 K/CMM 496 K/CMM (09/14/18 9:51 AM) *HI* (08/17/18 11:00 AM) Segs [45.0-75.0 %] 75.1 % 80.5 % *HI* *HI* (09/14/18 9:51 AM) (08/17/18 11:00 AM) Total Protein [6.4-8.4 g/dL] 7.4 g/dL 7.6 g/dL (09/14/18 9:51 AM) (08/17/18 11:00 AM) PT [12.0-14.7 seconds] 14.3 seconds 14.9 seconds (09/14/18 9:51 AM) *HI* (08/17/18 11:00 AM) PTT [22.9-35.8 seconds] 30.0 seconds 32.8 seconds (09/14/18 9:51 AM) (08/17/18 11:00 AM) RBC [4.70-6.10 M/CMM] 4.10 M/CMM 4.35 M/CMM *LOW* *LOW* (09/14/18 9:51 AM) (08/17/18 11:00 AM) RDW [11.5-14.5 %] 15.1 % 14.5 % *HI* (08/17/18 11:00 AM) (09/14/18 9:51 AM) Bili Total [0.2-1.3 mg/dL] 0.6 mg/dL 0.5 mg/dL (09/14/18 9:51 AM) (08/17/18 11:00 AM) WBC [3.7-10.4 K/CMM] 6.2 K/CMM 9.1 K/CMM (09/14/18 9:51 AM) (08/17/18 11:00 AM) 1Result Comment: The eGFR is calculated using [...] should be multiplied by the estimated BMI. Immunizations No data available for this section [...]
--- OUTSIDE RECORDS SUMMARY | 2018-11-06 10:00 | XMS REPORT | Summary of Care ---
:1945 Author Organization [facility] Address [address] [address]- Encounter HQ Lisar_ed(FIN) [id number] Date(s): 03/08/18 - 04/06/18 [facility] [address] [facility] [address] [place] [address]- [phone] Encounter Diagnosis Liver cell carcinoma (Final) - 04/11/18 Atherosclerotic heart disease of [place] coronary artery without angina pectoris (Final) - Essential (primary) hypertension (Final) - Type 2 diabetes mellitus without complications (Final) - Benign prostatic hyperplasia without lower urinary tract symptoms (Final) - Esophagitis, unspecified (Final) - Interstitial pulmonary disease, unspecified (Final) - 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) - Gastro-esophageal reflux disease without esophagitis (Final) - Chest pain, unspecified (Final) - Old myocardial infarction (Final) - Presence of coronary angioplasty implant and graft (Final) - skilled nursing (current) use of aspirin (Final) - warehouse order selector (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) use of oral hypoglycemic drugs (Final) - Other service order expediter (current) drug therapy (Final) - Personal history of nicotine dependence (Final) - Discharge Disposition: Home or Self Care Attending Physician: Leny Rodrigues MD Referring Physician: Leny Rodrigues MD Vital Signs Most recent to oldest [Reference Range]: 1 Height 165.1 cm (03/08/18 2:46 PM) Temperature Oral [96.4-99.1 DegF] 97.6 DegF (03/08/18 2:46 PM) Blood Pressure [90-140/60-90 mmHg] 102/57 mmHg (03/08/18 2:46 PM) Respiratory Rate [14-20 BRMIN] 18 BRMIN (03/08/18 2:46 PM) Peripheral Pulse Rate [60-100 bpm] 91 bpm (03/08/18 2:46 PM) Weight 78.773 kg (03/08/18 2:46 PM) Body Mass Index 28.9 m2 (03/08/18 2:46 PM) Problem List Condition Effective Dates Status Health Status Informant Knee pain, bilateral(Confirmed) Resolved Asbestosis(Confirmed) Active BPH (benign prostatic Active hyperplasia)(Confirmed) Chest pain(Confirmed) Resolved CAD (coronary artery Active disease)(Confirmed) Prostate irregularity(Confirmed) Resolved Chronic GERD(Confirmed) Active High blood cholesterol(Confirmed) Active High blood pressure(Confirmed) Active Borderline diabetes(Confirmed) Active Liver mass(Confirmed) Active Myocardial infarction(Confirmed) Resolved Allergies, Adverse Reactions, Alerts No Known Medication Allergies Medications prochlorperazine 5 mg oral tablet 1 tab- 2 tab, PO, Q6H, PRN Nausea & Vomiting, X 30 day, # 100 ea, 1 Refill(s ), Pharmacy: [id number] Start Date: 03/08/18 Stop Date: 04/17/18 Status: DiscontinuedSORAfenib 200 mg oral tablet 200 mg=1 tab, PO, BID, # 60 tab, 3 Refill(s), given to patient Start Date: 03/08/18 Stop Date: 04/17/18 Status: DiscontinuedSORAfenib 200 mg oral tablet 200 mg=1 tab, PO, Daily, # 30 tab, 5 Refill(s), Pharmacy: [facility], icd10: C22.0 Start Date: 03/08/18 Stop Date: 07/06/18 Status: DiscontinuedTylenol PO, PRN, 0 Refill(s) Start Date: 03/08/18 Stop Date: 09/07/18 Status: Discontinued Results Most recent to oldest [Reference Range]: 1 Neutrophils # [1.5-8.1 K/CMM] 5.0 K/CMM (03/08/18 2:23 PM) Lymphocytes # [1.0-5.5 K/CMM] 0.5 K/CMM *LOW* (03/08/18 2:23 PM) Monocytes # [0.0-0.8 K/CMM] 0.9 K/CMM *HI* (03/08/18 2:23 PM) Eosinophils # [0.0-0.5 K/CMM] 0.1 K/CMM (03/08/18 2:23 PM) Basophils # [0.0-0.2 K/CMM] 0.1 K/CMM (03/08/18 2:23 PM) eGFR 82 mL/min/1.73m2 1 *NA* (03/08/18: PM) A/G Ratio [0.7-1.6] 0.7 (03/08/18:23 PM) AFP TM [0.0-11.0 ng/mL] 49.4 ng/mL *HI* (03/08/18: PM) Albumin Lvl [3.5-5.0 g/dL] 3.2 g/dL *LOW* (03/08/18 2: PM) Alk Phos [39-136 unit/L] 106 unit/L (03/08/18: PM) ALT [0-65 unit/L] 24 unit/L (03/08/18: PM) AGAP [10.0-20.0 mEq/L] 13.2 mEq/L (03/08/18 2:23 PM) AST [0-37 unit/L] 20 unit/L (03/08/18 2:23 PM) B/C Ratio [6-25] 13 (03/08/18 2:23 PM) Basophils [0.0-1.0 %] 1.0 % (03/08/18: PM) BUN [7-22 mg/dL] 12 mg/dL (03/08/18: PM) Calcium Lvl [8.5-10.5 mg/dL] 9.0 mg/dL (03/08/18 2:23 PM) Chloride Lvl [95-109 mEq/L] 101 mEq/L (03/08/18:23 PM) CO2 [24-32 mEq/L] 29 mEq/L (03/08/18 2:23 PM) Creatinine Lvl [0.50-1.40 mg/dL] 0.91 mg/dL (03/08/18 2:23 PM) Eosinophils [0.0-4.0 %] 1.9 % (03/08/18 2:23 PM) Globulin [2.7-4.2 g/dL] 4.5 g/dL *HI* (03/08/18: PM) Glucose Lvl [70-99 mg/dL] 109 mg/dL *HI* (03/08/18 2:23 PM) Hct [42.0-54.0 %] 44.0 % (03/08/18: PM) Hgb [14.0-18.0 g/dL] 15.0 g/dL (03/08/18: PM) INR [0.85-1.17] 1.08 (03/08/18: PM) Potassium Lvl [3.5-5.1 mEq/L] 4.2 mEq/L (03/08/18: PM) Lymphocytes [20.0-40.0 %] 8.0 % *LOW* (03/08/18: PM) MCH [27.0-31.0 pg] 32.1 pg *HI* (03/08/18: PM) MCHC [32.0-36.0 g/dL] 34.0 g/dL (03/08/18:23 PM) MCV [80.0-94.0 fL] 94.3 fL *HI* (03/08/18: PM) Monocytes [2.0-12.0 %] 13.3 % *HI* (03/08/18 2:23 PM) MPV [7.4-10.4 fL] 8.2 fL (03/08/18: PM) Sodium Lvl [135-145 mEq/L] 139 mEq/L (03/08/18:23 PM) Platelet [133-450 K/CMM] 270 K/CMM (03/08/18 2:23 PM) Segs [45.0-75.0 %] 75.8 % *HI* (03/08/18:23 PM) Total Protein [6.4-8.4 g/dL] 7.7 g/dL (03/08/18 2:23 PM) PT [12.0-14.7 seconds] 14.0 seconds (10/25/18 2:23 PM) PTT [22.9-35.8 seconds] 26.7 seconds (03/08/18 2:23 PM) RBC [4.70-6.10 M/CMM] 4.67 M/CMM *LOW* (03/08/18 2:23 PM) RDW [11.5-14.5 %] 13.7 % (03/08/18 2:23 PM) Bili Total [0.2-1.3 mg/dL] 0.4 mg/dL (03/08/18 2:23 PM) WBC [3.7-10.4 K/CMM] 6.5 K/CMM (03/08/18 2:23 PM) 1Result Comment: The eGFR is calculated [...]
--- OUTSIDE RECORDS SUMMARY | 2018-11-06 10:00 | XMS REPORT | Summary of Care ---
:1945 Author Organization [facility] Address [address] [place], [place] [address]- Encounter HQ Aaliyah_ed(FIN) [id number] Date(s): 02/06/18 - 03/07/18 [facility] [address] [facility] [facility] [address] [place] [address]- [phone] Encounter Diagnosis Pulmonary fibrosis, unspecified (Final) - 03/13/18 Localized enlarged lymph nodes (Final) - Atherosclerotic heart disease of [place] coronary artery without angina pectoris (Final) - Hepatomegaly, not elsewhere classified (Final) - Benign prostatic hyperplasia without lower urinary tract symptoms (Final) - Essential (primary) hypertension (Final) - Type 2 diabetes mellitus without complications (Final) - Personal history of nicotine dependence (Final) - Interstitial pulmonary disease, unspecified (Final) - Disease of stomach and duodenum, unspecified (Final) - manager long term care (current) use of aspirin (Final) - prison (current) use of oral hypoglycemic drugs (Final) - Other longwall machine operator helper (current) drug therapy (Final) - Discharge Disposition: Home or Self Care Attending Physician: Leny Rodrigues MD Referring Physician: Leny Rodrigues MD Vital Signs Most recent to oldest [Reference Range]: 1 Temperature Oral [96.4-99.1 DegF] 98 DegF (02/06/18 12:45 PM) Blood Pressure [90-140/60-90 mmHg] 135/74 mmHg (02/06/18 12:45 PM) Respiratory Rate [14-20 BRMIN] 18 BRMIN (02/06/18 12:45 PM) Peripheral Pulse Rate [60-100 bpm] 77 bpm (02/06/18 12:45 PM) Weight 79.455 kg (02/06/18 12:45 PM) Problem List Condition Effective Dates Status Health Status Informant Knee pain, bilateral(Confirmed) Resolved Asbestosis(Confirmed) Active BPH (benign prostatic Active hyperplasia)(Confirmed) Chest pain(Confirmed) Resolved CAD (coronary artery Active disease)(Confirmed) Prostate irregularity(Confirmed) Resolved Chronic GERD(Confirmed) Active High blood cholesterol(Confirmed) Active High blood pressure(Confirmed) Active Borderline diabetes(Confirmed) Active Liver mass(Confirmed) Active Myocardial infarction(Confirmed) Resolved Allergies, Adverse Reactions, Alerts No Known Medication Allergies Medications Senna 8.6 mg oral tablet 8.6 mg=1 tab, PO, Bedtime, PRN for constipation, X 30 day, # 30 tab, 0 Refill(s) , given to patient Start Date: 02/06/18 Stop Date: 04/07/18 Status: Completed Results Most recent to oldest [Reference Range]: 1 Neutrophils # [1.5-8.1 K/CMM] 5.0 K/CMM (02/06/18 1:35 PM) Lymphocytes # [1.0-5.5 K/CMM] 1.5 K/CMM (02/06/18 1:35 PM) Monocytes # [0.0-0.8 K/CMM] 0.8 K/CMM (02/06/18 1:35 PM) Eosinophils # [0.0-0.5 K/CMM] 0.1 K/CMM (02/06/18 1:35 PM) Basophils # [0.0-0.2 K/CMM] 0.1 K/CMM (02/06/18 1:35 PM) eGFR 86 mL/min/1.73m2 1 *NA* (02/06/18 1:35 PM) A/G Ratio [0.7-1.6] 0.8 (02/06/18 1:35 PM) AFP TM [0.0-11.0 ng/mL] 69.9 ng/mL *HI* (02/06/18 1:35 PM) Albumin Lvl [3.5-5.0 g/dL] 3.4 g/dL *LOW* (02/06/18 1:35 PM) Alk Phos [39-136 unit/L] 89 unit/L (02/06/18 1:35 PM) ALT [0-65 unit/L] 28 unit/L (02/06/18 1:35 PM) AGAP [10.0-20.0 mEq/L] 12.3 mEq/L (02/06/18 1:35 PM) AST [0-37 unit/L] 20 unit/L (02/06/18 1:35 PM) B/C Ratio [6-25] 27 *HI* (02/06/18 1:35 PM) Basophils [0.0-1.0 %] 0.7 % (02/06/18 1:35 PM) BUN [7-22 mg/dL] 22 mg/dL (02/06/18 1:35 PM) Calcium Lvl [8.5-10.5 mg/dL] 9.6 mg/dL (02/06/18 1:35 PM) Chloride Lvl [95-109 mEq/L] 103 mEq/L (02/06/18 1:35 PM) CO2 [24-32 mEq/L] 31 mEq/L (02/06/18 1:35 PM) Creatinine Lvl [0.50-1.40 mg/dL] 0.82 mg/dL (02/06/18 1:35 PM) Eosinophils [0.0-4.0 %] 1.9 % (02/06/18 1:35 PM) Globulin [2.7-4.2 g/dL] 4.4 g/dL *HI* (02/06/18 1:35 PM) Glucose Lvl [70-99 mg/dL] 110 mg/dL *HI* (02/06/18 1:35 PM) Hct [42.0-54.0 %] 45.4 % (02/06/18 1:35 PM) Hgb [14.0-18.0 g/dL] 15.3 g/dL (02/06/18 1:35 PM) INR [0.85-1.17] 1.00 (02/06/18 1:35 PM) Potassium Lvl [3.5-5.1 mEq/L] 4.3 mEq/L (02/06/18 1:35 PM) Lymphocytes [20.0-40.0 %] 19.9 % *LOW* (02/06/18 1:35 PM) MCH [27.0-31.0 pg] 32.5 pg *HI* (02/06/18 1:35 PM) MCHC [32.0-36.0 g/dL] 33.8 g/dL (02/06/18 1:35 PM) MCV [80.0-94.0 fL] 96.3 fL *HI* (02/06/18 1:35 PM) Magnesium Lvl [1.8-2.4 mg/dL] 2.0 mg/dL (02/06/18 1:35 PM) Monocytes [2.0-12.0 %] 10.3 % (02/06/18 1:35 PM) MPV [7.4-10.4 fL] 9.1 fL (02/06/18 1:35 PM) Sodium Lvl [135-145 mEq/L] 142 mEq/L (02/06/18 1:35 PM) Phosphorus [2.5-4.5 mg/dL] 3.4 mg/dL (02/06/18 1:35 PM) Platelet [133-450 K/CMM] 282 K/CMM (02/06/18 1:35 PM) Segs [45.0-75.0 %] 67.2 % (02/06/18 1:35 PM) Total Protein [6.4-8.4 g/dL] 7.8 g/dL (02/06/18 1:35 PM) PT [12.0-14.7 seconds] 13.2 seconds (02/06/18 1:35 PM) PTT [22.9-35.8 seconds] 27.1 seconds (02/06/18 1:35 PM) RBC [4.70-6.10 M/CMM] 4.71 M/CMM (02/06/18 1:35 PM) RDW [11.5-14.5 %] 14.6 % *HI* (02/06/18 1:35 PM) Bili Total [0.2-1.3 mg/dL] 0.4 mg/dL (02/06/18 1:35 PM) WBC [3.7-10.4 K/CMM] 7.4 K/CMM (02/06/18 1:35 PM) 1Result Comment: The eGFR is calculated [...] years ago.2pt former smoker Assessment and Plan Extracted from: Title: Onc Outpatient Consult Note Author: Leny Rodrigues MD Date: 02/06/18 Mr. Long is a 72-year-old man with h/o coronary artery disease (s/p PCI with 4 stents [id number] 2011), type 2 diabetes, hypertension and BPH presenting R hepatic lobe lesion, consistent with H CC. Patient underwent Y90 of R hepatic lobe lesion was done on 02/16/18. Patient is here for initial consultation. HCC: 1. I have discussed patient's diagnosis and prognosis. 2. I discussed that the goal of chemotherapy is palliative 3. I had discussed that patient is not a candidate for liver transplantation given patient's comorbidities. 4. I discussed the option of sorafenib. I had discussed with patient about potential side effects of sorafenib including myelosuppression, n/v, diarrhea, abdominal discomfort, mucositis, hepatotoxicitiy , cardiotoxicity, thyroid problems, hand-foot syndrome, worsening hypertension , fatigue, hypersensitivity reaction 5.Will plan on obtaining restaging scans in 6 weeks from Y90 on 02/16/18 around mild march. 6.I had obtained a TSH today and wnl. 7.RTC 4 week w/ cbc, cmp, mg, phos, coags. AFP 8.If AFP rises, will start sorafenib. Interstitial lung disease: 1. Will refer to Pulmonary for eval. 2. May need a sleep study Fatty liver: 1. FU with Dr. Kelly. 2. Cont with other mgmt of diabetes and HTN. 3. Cont with with Hep B vaccination series. Thank you for the opportunity to care for this patient. I will continue to follow with you.
--- OUTSIDE RECORDS SUMMARY | 2018-11-06 10:00 | XMS REPORT | Summary of Care ---
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) - Essential (primary) hypertension (Final) - Hyperlipidemia, unspecified (Final) - Prediabetes (Final) - Gastro-esophageal reflux disease without esophagitis (Final) - Benign prostatic hyperplasia without lower urinary tract symptoms (Final) - Personal history of nicotine dependence (Final) - Discharge Disposition: Home or Self Care Attending Physician: Damian Stevens MD Referring Physician: Damian Stevens MD Vital Signs Most recent to oldest 1 2 3 [Reference Range]: Height 172.72 cm (02/01/18 11:22 AM) Blood Pressure [90-140/60-90 139/70 mmHg 124/64 mmHg 135/72 mmHg mmHg] (02/01/18 4:30 PM) (02/01/18 4:15 PM) (02/01/18 4:00 PM) Respiratory Rate [14-20 BRMIN] 24 BRMIN 23 BRMIN 17 BRMIN *HI* *HI* (02/01/18 4:00 PM) (02/01/18 4:30 PM) (02/01/18 4:15 PM) Weight 79.545 kg (02/01/18 11:22 AM) Body Mass Index 26.66 m2 (02/01/18 11:22 AM) Problem List Condition Effective Dates Status Health Status Informant Knee pain, bilateral(Confirmed) Resolved Asbestosis(Confirmed) Active BPH (benign prostatic Active hyperplasia)(Confirmed) Chest pain(Confirmed) Resolved CAD (coronary artery Active disease)(Confirmed) Prostate irregularity(Confirmed) Resolved Chronic GERD(Confirmed) Active High blood cholesterol(Confirmed) Active High blood pressure(Confirmed) Active Borderline diabetes(Confirmed) Active Liver mass(Confirmed) Active Myocardial infarction(Confirmed) Resolved Allergies, Adverse Reactions, Alerts Substance Reaction Severity Status NKDA Active Medications fentaNYL 50 microgram, Route: IV, ONCE, Dosing Weight 79.545, kg, Start date: 02/01/18 14 :02:00 CDT, Stop date: 02/01/18 14:02:00 CDT Start Date: 02/01/18 Stop Date: 02/01/18 Status: CompletedfentaNYL 50 microgram, Route: IV, ONCE, Dosing Weight 79.545, kg, Start date: 02/01/18 13 :07:00 CDT, Stop date: 02/01/18 13:07:00 CDT Start Date: 02/01/18 Stop Date: 02/01/18 Status: Completedlidocaine 1 mL, Route: INTRADERM, ONCE, Dosing Weight 79.545, kg, Start date: 02/01/18 13: 07:00 CDT, Stop date: 02/01/18 13:07:00 CDT Start Date: 02/01/18 Stop Date: 02/01/18 Status: Completed Results No data available for this section [...] Frequency Former Smoker; 1, 2 entered on: 08/17/18 1pt states he stopped smoking 15 years ago.2pt former smoker Assessment and Plan Extracted from: Title: Intervewntional Radiology Author: Rylie Meredith NP Date: 02/01/18 Interventional Radiology History and Physical Chief Complaint: Presents today for image guided mapping and Y 90 procedure. History of Present Illness: Mr. Sandra Long is a 73 year old male with a past medical history of liver mass/hepatocellular cancer. He presents today for image guided mapping and Y 90 procedure. Past Medical History: coronary artery disease asbestosis gastroesophageal reflux disease hypertension dyslipidemia benign prostatic hypertrophy borderline diabetes liver mass Past Surgical History: Stent replacement Social History: He is and lives with his . 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 Tobacco Details: Use: Former smoker. Tobacco smoke exposure: None. Did the Patient Smoke Cigarettes Anytime During the Last 365 Days? No. Cessation Counseling Provided? No. Family History: Father: Heart attack Mother: [place] - Breast cancer Brother: Heart attack Allergies Reviewed: Allergies: NKDA Current Medications: Medications (0) Active Scheduled Meds: None Unscheduled Meds: None PRN Meds: None One Time Meds: None Continuous Infusions: None Labs: (no lab data in past 24 hours) INR: 1.07 (12/29/17 10:18:00)No qualifying data available. Imaging Studies: 12/29/17 CT of torso - 1. There is renal excretion of contrast [...] size material. 5. Cholelithiasis. 6. Atrophic pancreas. Review of Systems: Constitutional Symptoms: no fever, + malaise Eyes: no visual changes Ears, Nose, Mouth, Throat: no dysphagia, no hearing deficits Cardiovascular: no chest pain,+ CAD, + hypertension Respiratory: no cough, + asbestosis Gastorintenstinal: + GERD, + liver mass Genitourinary: + BPH Musculoskeletal: + knee pain Integumentary: no rash, no hives Neurological: + weakness, no headache, no seizures Psychiatry: no anxiety, no depression, no insomnia Endocrine: + borderline diabetes, + dyslipidemia Physical Examination: Vitals Tmp(F) Tmp(C) Ttype BP MAP Pulse RR SpO2 FIO2 ETCO2 24 Hr Tmax: No Data Available Vital Signs are the last 5 in the past 48 hours. 24 Hr Tmin: No Data Available Weights are the last 5 in 60 days, plus initial. Date Wt(kg) Wt(lb) Ht(cm) Ht(in) Method BMI BSA General: Active, alert, well developed, well nourished, in no acute distress Head: Normocephalic, atraumatic Eyes: sclera is clear Hearing: appears normal to spoken voice Speech: Adequate vocabulary, no impediments Nose: Brunson nasal turbinates, septum midline, no drainage or deformities Mouth: moist mucous membranes, dentition is adequate Neck: Supple, without JVD Resp: Clear to auscultation bilaterally CV: RRR, without murmurs, rubs or gallops ABD: soft, non tender with positive bowel sounds x 4 quads Back/Extremities: extremities are without edema Neuro: He is alert and oriented and follows simple commands. Skin: Clear, no rashes or jaundice Impression: 1. liver lesion/hepatocellular cancer 2. CAD 3. borderline diabetes 4. hypertension Plan: Plan is for image guided mapping and Y 90 procedure in Interventional Radiology today under moderate sedation. Benefits, risks, and alternatives were disussed with patient by Dr. Saini. He verb alizes understanding and consents to proceed. He has been NPO since midnight in preparation for his procedure. THANK YOU FOR CONSULTING INTERVENTIONAL RADIOLOGY. iF YOU HAVE ANY QUESTIONS, PLEASE CONTACT [phone].
--- OUTSIDE RECORDS SUMMARY | 2018-11-06 10:00 | XMS REPORT | Summary of Care ---
:1945 Author Organization [facility] Address [address] [address]- Encounter HQ Aaliyah_ed(FIN) [id number] Date(s): 12/29/17 - 12/29/17 [facility] [address] [facility] [address] [place] [phone] Encounter Diagnosis Hepatomegaly, not elsewhere classified (Final) - 01/05/18 Fatty (change of) liver, not elsewhere classified (Final) - Type 2 diabetes mellitus without complications (Final) - Atherosclerotic heart disease of [place] coronary artery without angina pectoris (Final) - Essential (primary) hypertension (Final) - Benign prostatic hyperplasia without lower urinary tract symptoms (Final) - senior living (current) use of oral hypoglycemic drugs (Final) - senior living (current) use of aspirin (Final) - Personal history of nicotine dependence (Final) - Calculus of gallbladder without cholecystitis without obstruction (Final) - Other specified diseases of pancreas (Final) - Discharge Disposition: Home or Self Care Attending Physician: Clara Kelly MD Referring Physician: Clara Kelly MD Vital Signs Most recent to oldest [Reference Range]: 1 Height 167.64 cm (12/29/17 9:07 AM) Blood Pressure [90-140/60-90 mmHg] 122/69 mmHg (12/29/17 9:07 AM) Respiratory Rate [14-20 BRMIN] 16 BRMIN (12/29/17 9:07 AM) Peripheral Pulse Rate [60-100 bpm] 81 bpm (12/29/17 9:07 AM) Weight 78.182 kg (12/29/17 9:07 AM) Body Mass Index 27.82 m2 (12/29/17 9:07 AM) Problem List Condition Effective Dates Status Health Status Informant Knee pain, bilateral(Confirmed) Resolved Asbestosis(Confirmed) Active BPH (benign prostatic Active hyperplasia)(Confirmed) Chest pain(Confirmed) Resolved CAD (coronary artery Active disease)(Confirmed) Prostate irregularity(Confirmed) Resolved Chronic GERD(Confirmed) Active High blood cholesterol(Confirmed) Active High blood pressure(Confirmed) Active Borderline diabetes(Confirmed) Active Liver mass(Confirmed) Active Myocardial infarction(Confirmed) Resolved Allergies, Adverse Reactions, Alerts Substance Reaction Severity Status NKDA Active Medications clopidogrel 75 mg oral tablet 75 mg=1 tab, PO, Daily, # 30 tab, 0 Refill(s) Start Date: 12/29/17 Status: OrderedmetFORMIN 500 mg oral tablet 500 mg=1 tab, PO, BID-Meals, # 30 tab, 0 Refill(s) Start Date: 12/29/17 Status: Orderedmetoprolol succinate 100 mg oral capsule, extended release 0 Refill(s) Start Date: 12/29/17 Status: Orderedomeprazole 40 mg oral delayed release capsule 40 mg=1 cap, PO, Daily, # 30 cap, 0 Refill(s) Start Date: 12/29/17 Stop Date: 04/17/18 Status: Discontinuedpravastatin 80 mg oral tablet 80 mg=1 tab, PO, Bedtime, # 30 tab, 0 Refill(s) Start Date: 12/29/17 Status: Ordered Results ELECTROLYTES Most recent to oldest [Reference Range]: 1 Sodium Lvl [135-145 mEq/L] 140 mEq/L (12/29/17 10:18 AM) Potassium Lvl [3.5-5.1 mEq/L] 3.9 mEq/L (12/29/17 10:18 AM) Chloride Lvl [95-109 mEq/L] 102 mEq/L (12/29/17 10:18 AM) CO2 [24-32 mEq/L] 28 mEq/L (12/29/17 10:18 AM) AGAP [10.0-20.0 mEq/L] 13.9 mEq/L (12/29/17 10:18 AM) CHEM PANEL Most recent to oldest [Reference Range]: 1 Creatinine Lvl [0.50-1.40 mg/dL] 0.74 mg/dL (12/29/17 10:18 AM) eGFR 91 mL/min/1.73m2 1 *NA* (12/29/17 10:18 AM) BUN [7-22 mg/dL] 16 mg/dL (12/29/17 10:18 AM) Glucose Lvl [70-99 mg/dL] 105 mg/dL *HI* (12/29/17 10:18 AM) Total Protein [6.4-8.4 g/dL] 7.6 g/dL (12/29/17 10:18 AM) Albumin Lvl [3.5-5.0 g/dL] 3.6 g/dL (12/29/17 10:18 AM) Globulin [2.7-4.2 g/dL] 4.0 g/dL (12/29/17 10:18 AM) A/G Ratio [0.7-1.6] 0.9 (12/29/17:18 AM) Calcium Lvl [8.5-10.5 mg/dL] 9.2 mg/dL (12/29/17 10:18 AM) ALT [0-65 unit/L] 27 unit/L (12/29/17:18 AM) AST [0-37 unit/L] 23 unit/L (12/29/17 10:18 AM) Alk Phos [39-136 unit/L] 65 unit/L (12/29/17 10:18 AM) Bili Total [0.2-1.3 mg/dL] 0.6 mg/dL (12/29/17 10:18 AM) Bili Direct [0.0-0.3 mg/dL] 0.1 mg/dL (12/29/17 10:18 AM) Bili Indirect [0.0-1.0 mg/dL] 0.5 mg/dL (12/29/17 10:18 AM) 1Result Comment: The eGFR is calculated [...] eGFR should be multiplied by the estimated BMI.IMMUNOLOGY Most recent to oldest [Reference Range]: 1 Hep Bs Ag [Negative] Negative *NA* (12/29/17 10:18 AM) Hep Bs Ab [<=7.4 mIU/mL] <3.1 mIU/mL (12/29/17 10:18 AM) Hep B Core Ab [Negative] Positive *NA* (12/29/17 10:18 AM) Hep C Ab Negative *NA* (12/29/17 10:18 AM) HEMATOLOGY Most recent to oldest [Reference Range]: 1 WBC [3.7-10.4 K/CMM] 7.5 K/CMM (12/29/17 10:18 AM) RBC [4.70-6.10 M/CMM] 4.61 M/CMM *LOW* (12/29/17:18 AM) Hgb [14.0-18.0 g/dL] 15.0 g/dL (12/29/17 10:18 AM) Hct [42.0-54.0 %] 44.3 % (12/29/17:18 AM) MCV [80.0-94.0 fL] 96.1 fL *HI* (12/29/17:18 AM) MCH [27.0-31.0 pg] 32.5 pg *HI* (12/29/17:18 AM) MCHC [32.0-36.0 g/dL] 33.8 g/dL (12/29/17 10:18 AM) RDW [11.5-14.5 %] 14.5 % (12/29/17 10:18 AM) MPV [7.4-10.4 fL] 9.1 fL (12/29/17:18 AM) Platelet [133-450 K/CMM] 284 K/CMM (12/29/17 10:18 AM) Segs [45.0-75.0 %] 72.1 % (12/29/17 10:18 AM) Lymphocytes [20.0-40.0 %] 17.4 % *LOW* (12/29/17 10:18 AM) Monocytes [2.0-12.0 %] 8.9 % (12/29/17 10:18 AM) Eosinophils [0.0-4.0 %] 0.8 % (12/29/17 10:18 AM) Basophils [0.0-1.0 %] 0.8 % (12/29/17 10:18 AM) Neutrophils # [1.5-8.1 K/CMM] 5.4 K/CMM (12/29/17 10:18 AM) Lymphocytes # [1.0-5.5 K/CMM] 1.3 K/CMM (12/29/17 10:18 AM) Monocytes # [0.0-0.8 K/CMM] 0.7 K/CMM (12/29/17 10:18 AM) Eosinophils # [0.0-0.5 K/CMM] 0.1 K/CMM (12/29/17 10:18 AM) Basophils # [0.0-0.2 K/CMM] 0.1 K/CMM (12/29/17 10:18 AM) PT [12.0-14.7 seconds] 13.9 seconds (12/29/17 10:18 AM) INR [0.85-1.17] 1.07 (12/29/17 10:18 AM) TUMOR MARKERS Most recent to oldest [Reference Range]: 1 CEA [0.0-3.0 ng/mL] 2.8 ng/mL (12/29/17 10:18 AM) CA 19-9 [0.0-35.0 unit/mL] 33.1 unit/mL (12/29/17 10:18 AM) AFP TM [0.0-11.0 ng/mL] 41.5 ng/mL *HI* (12/29/17 10:18 AM) Immunizations No data available for this section [...] Frequency Former Smoker; 1, 2 entered on: 07/06/18 1pt states he stopped smoking 15 years ago.2pt former smoker Assessment and Plan No data available for this section
--- OUTSIDE RECORDS SUMMARY | 2018-11-06 10:01 | XMS REPORT | Summary of Care ---
:1945 Author Organization [facility] Neurosurgery [facility] Address [address] [place] [address], [address] [place] [address]- Encounter HQ Gennyntr_ed(FIN) [id number] Date(s): 06/27/18 - 06/27/18 [facility] [address], [address] [place] [phone] Attending Physician: Lefty Martinez MD Referring Physician: Beny Mendoza MD Vital Signs No data available for [...]
--- OUTSIDE RECORDS SUMMARY | 2018-11-06 10:01 | XMS REPORT | Summary of Care ---
:1945 Author Organization [facility] Outpatient Imaging [facility] Address [address] [place], [place] [address]- Encounter HQ Encntr_alimalia(FIN) [id number] Date(s): 01/12/18 - 01/12/18 [facility] Outpatient Imaging [address], [address] [place] [address]- [phone] Encounter Diagnosis Hepatomegaly, not elsewhere classified (Final) - 01/19/18 Atherosclerotic heart disease of [place] coronary artery without angina pectoris (Final) - Discharge Disposition: Home or Self Care Attending Physician: Clara Kelly MD Referring Physician: Clara Kelly MD Vital Signs No data available for [...] Frequency Former Smoker; 1, 2 entered on: 07/19/18 1pt states he stopped smoking 15 years ago.2pt former smoker Assessment and Plan No data available for this section
--- OUTSIDE RECORDS SUMMARY | 2018-11-06 10:01 | XMS REPORT | Summary of Care ---
:1945 Author Organization [facility] Address [address] [place] [address]- Encounter HQ Kermit(FIN) [id number] Date(s): 02/16/18 - 02/16/[address] [address]- [place] Encounter Diagnosis Liver cell carcinoma (Final) - 02/26/18 Atherosclerotic heart disease of jena coronary artery without angina pectoris (Final) - Old myocardial infarction (Final) - Type 2 diabetes mellitus without complications (Final) - Essential (primary) hypertension (Final) - Benign prostatic hyperplasia without lower urinary tract symptoms (Final) - Personal history of nicotine dependence (Final) - [facility] (current) use of antithrombotics/antiplatelets (Final) - 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.] 50 microgram, Route: IV, ONCE, Dosing Weight 78.182, kg, Start date: 02/16/18 10 :21:00 CDT, Stop date: 02/16/18 10:21:00 CDT Start Date: 02/16/18 Stop Date: 02/16/18 Status: CompletedfentaNYL 50 microgram, Route: IV, ONCE, Dosing Weight 78.182, kg, Start date: 02/16/18 10 :21:00 CDT, Stop date: 02/16/18 10:21:00 CDT Start Date: 02/16/18 Stop Date: 02/16/18 Status: Completedlidocaine 1% 6 mL, Route: INTRADERM, Dosing Weight 78.182, kg, ONCE, Start date: 02/16/18 10: 21:00 CDT, Stop date: 02/16/18 10:21:00 CDT Start Date: 02/16/18 Stop Date: 02/16/18 Status: CompletedVersed 1 mg, Route: IV, ONCE, Dosing Weight 78.182, kg, Start date: 02/16/18 10:21:00 CDT, Stop date: 02/16/18 10:21:00 CDT Start Date: 02/16/18 Stop Date: 02/16/18 Status: CompletedVersed 1 mg, Route: IV, ONCE, Dosing Weight 78.182, kg, Start date: 02/16/18 10:21:00 CDT, Stop date: 02/16/18 10:21:00 CDT Start Date: 02/16/18 Stop Date: 02/16/18 Status: Completed Results No data available for this section Immunizations No data available for this section Procedures Procedure Date Related Diagnosis Body Site Status Radiation therapy care 10/4/18 Completed Examination of spine Completed Stent replacement [...] smoker Assessment and Plan Extracted from: Title: IR Author: Ismael Kelly MD Date: 02/16/18 Interventional Radiology History and Physical History of Present Illness: 72-year-old man presenting for Y-90 treatment of segment VII liver mass. Past medical history of coronary artery disease (s/p PCI with 4 stents in 2010 2011) , type 2 diabetes, hypertension and BPH. No know no known cirrhosis and has never had complications of liver disease. He denies a history of heavy alcohol use(drank only 2 beers weekly, last use 2002) , intravenous drug use, tattoos and blood tr ansfusions. In October 2017 he presented to his primary care physician with complaint of abdominal pain, nausea, vomiting and diarrhea. He was sent to the ER in October 2017. At that time he had chest ang iography done showing pulmonary fibrosis and fatty infiltration of the liver. Segment VII lesion in the right lobe was already mapped with [id number]- MAA. Past Medical History: Chest pain Knee pain, bilateral Myocardial infarction Prostate irregularity Past Surgical History: Stent replacement Examination of spine Social History: Tobacco Details: Use: Former smoker. Tobacco smoke exposure: None. Did the Patient Smoke Cigarettes Anytime During the Last 365 Days? No. Cessation Counseling Provided? No.; Comment(s): pt former smoker Family History: Father: Heart attack; Hypertension Mother: [place] - Breast cancer Brother: Heart attack Sister: Type 2 diabetes mellitus Allergies Reviewed: Allergies: NKDA Current Medications: Medications (0) Active Scheduled Meds: None Unscheduled Meds: None PRN Meds: None One Time Meds: None Continuous Infusions: None Labs: (no lab data in past 24 hours) Imaging Studies: Review of Systems: Constitutional Symptoms: no fever, no chills , no fatigue HEENT: no headache, no blurred vision, no sore throat Cardiovascular: no chest pain, no SOB, no orthopnea, Respiratory: same as CVS, no cough, no hemoptysis Gastrointestinal:, no abdominal pain Genitourinary: no dysuria, no frequency, no urgency, Musculoskeletal: no joint pain, no myalgia Integumentary: no rash or open wound Neurological: no seizure, no dizziness Psychiatric: no anxiety and/or depression Endocrine: no polyuria, no polydipsia, Hematologic/Lymphatic: no bleeding, no bruising, Physical Examination: Gen: AAO x3, NAD, WNWD Vitals Tmp(F) Pulse BP RR SpO2 FIO2 (no data in last 48 hours) 24 Hr Tmax: No Data Available Vital Signs are the last 5 in the past 48 hours. General: Active, alert, well developed, well nourished, in no acute distress Head: Normocephalic, atraumatic Eyes: sclera is clear Hearing: appears normal to spoken voice Speech: Adequate vocabulary, no impediments Nose: [place] nasal turbinates, septum midline, no drainage or deformities Mouth: moist mucous membranes, dentition is adequate Neck: Supple, without JVD Resp: Clear to auscultation bilaterally CV: RRR, without murmurs, rubs or gallops ABD: soft, non tender with positive bowel sounds x 4 quads Back/Extremities: extremities are without edema Neuro: He is alert and oriented and follows simple commands. Skin: Clear, no rashes or jaundice Impression/Plan: Plan for Y- treatment THANK YOU FOR CONSULTING INTERVENTIONAL RADIOLOGY, IF YOU HAVE ANY QUESTIONS, PLEASE CONTACT [phone].
--- OUTSIDE RECORDS SUMMARY | 2018-11-06 10:01 | XMS REPORT | Summary of Care ---
:1945 Author Organization [facility] Address [address], [place] [address]- Encounter HQ Kermit(FIN) [id number] Date(s): 07/19/18 - 07/19/[address] [address]- [place] Discharge Disposition: Home or Self Care Attending Physician: Damian Stevens MD Referring Physician: Damian Stevens MD Vital Signs Most recent to oldest 1 2 3 [Reference Range]: Height 167.64 cm (07/19/18 11:10 AM) Blood Pressure [90-140/60-90 178/87 mmHg 175/92 mmHg 167/87 mmHg mmHg] *HI* *HI* *HI* (07/19/18 12:00 PM) (07/19/18 11:55 AM) (07/19/18 11:50 AM) Respiratory Rate [14-20 BRMIN] 17 BRMIN 14 BRMIN 14 BRMIN (07/19/18 12:00 PM) (07/19/18 11:55 AM) (07/19/18 11:50 AM) Weight 77.273 kg (07/19/18 11:10 AM) Body Mass Index 27.5 m2 (07/19/18 11:10 AM) Problem List Condition Effective Dates Status [...] 50 microgram, Route: IV, ONCE, Dosing Weight 77.273, kg, Start date: 07/19/18 11 :44:00 [employer] SUPER[employer]OR, Stop date: 07/19/18 11:44:00 [employer] SUPERVISOR Start Date: 07/19/18 Stop Date: 07/19/18 Status: CompletedfentaNYL 50 microgram, Route: IV, ONCE, Dosing Weight 77.273, kg, Start date: 07/19/18 10 :26:00 [employer] SUPERVISOR, Stop date: 07/19/18 10:26:00 [employer] SUPERVISOR Start Date: 07/19/18 Stop Date: 07/19/18 Status: Completedlidocaine 10 mL, Route: INTRADERM, ONCE, Dosing Weight 77.273, kg, Start date: 07/19/18 10 :31:00 M[employer] SUPERVISOR, Stop date: 07/19/18 10:31:00 M[employer] MA[employer] SUPERVISOR Start Date: 07/19/18 Stop Date: 07/19/18 Status: Completedmidazolam 1 mg, Route: IV, ONCE, Dosing Weight 77.273, kg, Start date: 07/19/18 10:26:00 M[employer] SUPERVISOR, Stop date: 07/19/18 10:26:00 M[employer] SUPERVISOR Start Date: 07/19/18 Stop Date: 07/19/18 Status: Completedmidazolam 1 mg, Route: IV, ONCE, Dosing Weight 77.273, kg, Start date: 07/19/18 11:44:00 M[employer] SUPERVISOR, Stop date: 07/19/18 11:44:00 M[employer] SUPERVISOR Start Date: 07/19/18 Stop Date: 07/19/18 Status: CompletedRocephin 1 gm, Route: IV, ONCE, Dosing Weight 77.273, kg, Start date: 07/19/18 11:09:00 M[employer] SUPERVISOR, Stop date: 07/19/18 11:09:00 M[employer] SUPERVISOR, ABX Indication: Surgical Prophylaxis Start Date: 07/19/18 Stop Date: 07/19/18 Status: Completed Results No data available for this section Immunizations No data available for this section Procedures Procedure Date Related Diagnosis Body Site Status Vascular embolization or occlusion, 07/19/18 Completed inclusive of all radiological supervision and interpretation, intraprocedural roadmapping, and imaging guidance necessary to complete the intervention; for tumors, organ ischemia, or infarction Radiation therapy care 02/15/18 Completed Examination of [...]
--- OUTSIDE RECORDS SUMMARY | 2018-11-06 10:01 | XMS REPORT | Summary of Care ---
:1945 Author Organization [facility] Address Unavailable , Encounter FUAD Carmen(REYNALDO) [id number] Date(s): 03/08/18 - 03/09/18 [facility] Vital Signs No data available for this [...]
--- OUTSIDE RECORDS SUMMARY | 2018-11-06 10:01 | XMS REPORT | Summary of Care ---
:1945 Author Organization [facility] Neurosurgery [facility] Address [address] [place] [address], [address] [place] [address]- Encounter HQ Encntr_alias(FIN) [id number] Date(s): 06/20/18 - 06/21/18 [facility] [address] [facility], [address] [place] [phone] Vital Signs No data available for this [...]
--- OUTSIDE RECORDS SUMMARY | 2018-11-06 10:01 | XMS REPORT | Summary of Care ---
:1945 Author Organization [facility] [place] Address [address] [place], [place] [address]- Encounter HQ Gennyntr_ed(FIN) [id number] Date(s): 06/23/18 - 06/23/18 [facility] [place] [address] [place] [address]- [phone] Discharge Disposition: Home or Self Care Attending [...]
--- OUTSIDE RECORDS SUMMARY | 2018-11-06 10:02 | XMS REPORT | Summary of Care ---
:1945 Author Organization [facility] Address [address] [address]- Encounter HQ Aaliyah_ed(FIN) [id number] Date(s): 06/01/18 - 06/30/18 [facility] [address] [facility] [address] [place] [address]- [phone] Discharge Disposition: Home or Self Care Attending Physician: Leny Rodrigues MD Referring Physician: Leny Rodrigues MD Vital Signs Most recent to oldest [Reference Range]: 1 Height 166 cm (06/01/18 3:52 PM) Temperature Oral [96.4-99.1 DegF] 97.5 DegF (06/01/18 3:52 PM) Blood Pressure [90-140/60-90 mmHg] 131/79 mmHg (06/01/18 3:52 PM) Respiratory Rate [14-20 BRMIN] 16 BRMIN (06/01/18 3:52 PM) Peripheral Pulse Rate [60-100 bpm] 80 bpm (06/01/18 3:52 PM) Weight 74.136 kg (06/01/18 3:52 PM) Body Mass Index 26.9 m2 (06/01/18 3:52 PM) Problem List Condition Effective Dates Status [...] Reaction Severity Status NKDA Active Medications No Known Medications Results ELECTROLYTES Most recent to oldest [Reference Range]: 1 Sodium Lvl [135-145 mEq/L] 137 mEq/L (06/01/18 2:20 PM) Potassium Lvl [3.5-5.1 mEq/L] 4.1 mEq/L (06/01/18 2:20 PM) Chloride Lvl [95-109 mEq/L] 100 mEq/L (06/01/18 2:20 PM) CO2 [24-32 mEq/L] 30 mEq/L (06/01/18 2:20 PM) AGAP [10.0-20.0 mEq/L] 11.1 mEq/L (06/01/18 2:20 PM) CHEM PANEL Most recent to oldest [Reference Range]: 1 Creatinine Lvl [0.50-1.40 mg/dL] 0.76 mg/dL (06/01/18 2:20 PM) eGFR 89 mL/min/1.73m2 1 *NA* (06/01/18 2:20 PM) BUN [7-22 mg/dL] 11 mg/dL (06/01/18 2:20 PM) B/C Ratio [6-25] 14 (06/01/18 2:20 PM) Glucose Lvl [70-99 mg/dL] 144 mg/dL *HI* (06/01/18 2:20 PM) Total Protein [6.4-8.4 g/dL] 7.8 g/dL (06/01/18 2:20 PM) Albumin Lvl [3.5-5.0 g/dL] 3.3 g/dL *LOW* (06/01/18 2:20 PM) Globulin [2.7-4.2 g/dL] 4.5 g/dL *HI* (06/01/18 2:20 PM) A/G Ratio [0.7-1.6] 0.7 (06/01/18 2:20 PM) Calcium Lvl [8.5-10.5 mg/dL] 9.2 mg/dL (06/01/18 2:20 PM) Phosphorus [2.5-4.5 mg/dL] 2.7 mg/dL (06/01/18 2:20 PM) Magnesium Lvl [1.8-2.4 mg/dL] 2.0 mg/dL (06/01/18 2:20 PM) ALT [0-65 unit/L] 32 unit/L (06/01/18 2:20 PM) AST [0-37 unit/L] 27 unit/L (06/01/18 2:20 PM) Alk Phos [39-136 unit/L] 109 unit/L (06/01/18 2:20 PM) Bili Total [0.2-1.3 mg/dL] 0.6 mg/dL (06/01/18 2:20 PM) 1Result Comment: The eGFR is calculated [...] eGFR should be multiplied by the estimated BMI.HEMATOLOGY Most recent to oldest [Reference Range]: 1 WBC [3.7-10.4 K/CMM] 5.6 K/CMM (06/01/18 2:20 PM) RBC [4.70-6.10 M/CMM] 4.89 M/CMM (06/01/18 2:20 PM) Hgb [14.0-18.0 g/dL] 15.4 g/dL (06/01/18 2:20 PM) Hct [42.0-54.0 %] 46.0 % (06/01/18 2:20 PM) MCV [80.0-94.0 fL] 94.2 fL *HI* (06/01/18 2:20 PM) MCH [27.0-31.0 pg] 31.5 pg *HI* (06/01/18 2:20 PM) MCHC [32.0-36.0 g/dL] 33.4 g/dL (06/01/18 2:20 PM) RDW [11.5-14.5 %] 15.0 % *HI* (06/01/18 2:20 PM) MPV [7.4-10.4 fL] 8.1 fL (06/01/18 2:20 PM) Platelet [133-450 K/CMM] 243 K/CMM (06/01/18 2:20 PM) Segs [45.0-75.0 %] 67.7 % (06/01/18 2:20 PM) Lymphocytes [20.0-40.0 %] 21.5 % (06/01/18 2:20 PM) Monocytes [2.0-12.0 %] 8.7 % (06/01/18 2:20 PM) Eosinophils [0.0-4.0 %] 1.2 % (06/01/18 2:20 PM) Basophils [0.0-1.0 %] 0.9 % (06/01/18 2:20 PM) Neutrophils # [1.5-8.1 K/CMM] 3.8 K/CMM (06/01/18 2:20 PM) Lymphocytes # [1.0-5.5 K/CMM] 1.2 K/CMM (06/01/18 2:20 PM) Monocytes # [0.0-0.8 K/CMM] 0.5 K/CMM (06/01/18 2:20 PM) Eosinophils # [0.0-0.5 K/CMM] 0.1 K/CMM (06/01/18 2:20 PM) PT [12.0-14.7 seconds] 13.8 seconds (06/01/18 2:20 PM) INR [0.85-1.17] 1.08 (06/01/18 2:20 PM) PTT [22.9-35.8 seconds] 27.2 seconds (06/01/18 2:20 PM) TUMOR MARKERS Most recent to oldest [Reference Range]: 1 AFP TM [0.0-11.0 ng/mL] 55.0 ng/mL *HI* (06/01/18 2:20 PM) Immunizations No data available for this [...] smoker Assessment and Plan Extracted from: Title: MRI Findings Author: Nilo Medina MD Date: 06/04/18 Special Note: Dr. Ledbetter was paged without call back to discuss the MRI findings, which are detailed in the corresponding MRI of the lumbar spine. Nilo Cruz MD PGY-4
--- OUTSIDE RECORDS SUMMARY | 2018-11-06 10:02 | XMS REPORT | Summary of Care ---
:1945 Author Name MALU BLANCO M.D. Address Unavailable Unavailable , Care Team Providers Name Role Phone RBETT MCFADDEN M.D. Unavailable Unavailable BELLA Peñaloza, MALU Unavailable Unavailable EARLINE PIZARRO, JESUS Patel Unavailable Unavailable Jose Enrique Nieto MD Unavailable Unavailable JAIME PIZARRO [place], KG Edward Unavailable Unavailable IVETTE PIZARRO, CORNELIO Kent Unavailable Unavailable Unavailable Unavailable Unavailable Functional Status Name Dates Details Functional status health issues are not documented Status: Name Dates Details Cognitive status health issues are not documented Status: Problems Name Dates Details Primary hepatocellular carcinoma of liver (155.0, C22.0) Status: Active Seborrheic dermatitis, unspecified (690.10, L21.9) Status: Active Pulmonary fibrosis (515, J84.10) Status: Active Medications Name Dates Details Omeprazole TBEC Refills: 0 Active metFORMIN HCl TABS Refills: 0 Active Clopidogrel Bisulfate TABS Refills: 0 Active Metoprolol Tartrate TABS Refills: 0 Active Pravastatin Sodium TABS Refills: 0 Active Tamsulosin HCl 0.4 MG CP24 Refills: 0 Active Finasteride TABS Refills: 0 Active Ketoconazole 2 % External Cream APPLY SPARINGLY TO AFFECTED AREA(S) TWICE DAILY Quantity: 60 Refills: 5 BOGDAN Peñaloza BRETT Start : 09-May-2018 Active Hydrocortisone 2.5 % External Cream APPLY 1-2 TIMES DAILY TO AFFECTED AREA(S) OF FACE NEEDED Quantity: 80 Refills: 5 BOGDAN Peñaloza, BRETT Start : 09-May-2018 Active Allergies and Adverse Reactions Name Dates Details No Known Drug Allergies (Allergy) Status: Active Past Medical History Name Dates Details History of cardiac disorder (V12.50, Z86.79) Status: Resolved History of diabetes mellitus (V12.29, Z86.39) Status: Resolved Procedures Procedure Dates Details 6 Minute Walk Test Date: 23-Oct-2018 Complete PFTs w/DLCO and Lung Volumes Date: 23-Oct-2018 History of Heart surgery Completed History of Arterial stent placement Completed Immunization Name Dates Details Immunizations not documented Family History Name Dates Details Family history of diabetes mellitus (V18.0, Z83.3) Comments: Family History Status: Active Family history of cardiac disorder (V17.49, Z82.49) Comments: Family History Status: Active Social History Name Dates Details Unknown if ever smoked Vital Signs Date Test Result Details [id number] BP Systolic 153 mm[Hg] Status: Comments: Location: RUE; Position: Sitting BP Diastolic 86 mm[Hg] Status: Comments: Location: RUE; Position: Sitting Height 66 in Status: Weight 154 lb Status: Body Mass Index Calculated 24.86 kg/m2 Status: Body Surface Area Calculated 1.79 m2 Status: Heart Rate 83 /min Status: Respiration Rate 18 /min Status: O2 SAT 90 % Status: Comments: Source: RA Results Date Description Value Details Results not documented Plan of Care Name Dates Details Planned Observations Planned Goals not documented Planned Encounters Appointment; KG SANDOVAL M.D. On: 01-Nov-2018 14:00 Interventions Provided PlanPlan It was nice to see you in clinic today. Overall, you look very good for the degree of lung injury that your imaging shows. We will order a walk test to assess your oxygenation as well as breathingtests to get a baseline idea of how well they work. We will also refer you to pulmonary rehab. We will see you back in 4 months or sooner if needed.Discussion/Summary(Based on his history, imaging and exam, he has pulmonary fibrosis, likely related to prior occupational exposures in addition to his heavy smoking history. IPF is lower on the differential given his relative stability over the years. We will obtain an exertional hypoxemia test, PFTs, and send for pulmonary rehab. We will discuss in multidisciplinary rounds wether treatment is yet merited. RTC in 4 months) Instructions Name Dates Details Instructions not documented Encounters Appointment; JUANITO CRYSTAL On: 29-Dec-2017 9:00 Encounter Diagnosis: Problem not documented Appointment; MD NIRALI PROVIDER On: 19-Jan-2018 10:00 Encounter Diagnosis: Problem not documented Appointment; KG SANDOVAL M.D. On: 06-Feb-2018 12:40 Encounter Diagnosis: Problem not documented Appointment; KG SANDOVAL M.D. On: 08-Mar-2018 11:00 Encounter Diagnosis: Problem not documented Appointment; MALU BLANCO M.D. On: 03-Apr-2018 13:00 Encounter Diagnosis: Problem not documented Appointment; KG SANDOVAL M.D. On: 17-Apr-2018 14:00 Encounter Diagnosis: Problem not documented Appointment; KG SANDOVAL M.D. On: 04-May-2018 13:10 Encounter Diagnosis: Problem not documented Appointment; BRETT MCFADDEN M.D. On: 09-May-2018 10:00 Encounter Diagnosis: Problem not documented Appointment; KG SANDOVAL M.D. On: 01-Jun-2018 14:50 Encounter Diagnosis: Problem not documented Appointment; KG SANDOVAL M.D. On: 29-Jun-2018 8:40 Encounter Diagnosis: Problem not documented Appointment; KG SANDOVAL M.D. On: 06-Jul-2018 14:00 Encounter Diagnosis: Problem not documented Appointment; KG SANDOVAL M.D. On: 03-Aug-2018 14:50 Encounter Diagnosis: Problem not documented Appointment; KG SANDOVAL M.D. On: 17-Aug-2018 10:45 Encounter Diagnosis: Problem not documented Appointment; GK SANDOVAL M.D. On: 14-Sep-2018 10:30 Encounter Diagnosis: Problem not documented Appointment; KG SANDOVAL M.D. On: 16-Oct-2018 10:00 Encounter Diagnosis: Problem not documented Appointment; MALU BLANCO M.D. On: 23-Oct-2018 15:00 Encounter Diagnosis: Problem not documented
--- OUTSIDE RECORDS SUMMARY | 2018-11-06 10:02 | XMS REPORT ---
:1945 Author Organization [facility] Address [address] [place] [address] Care Team Providers Name Role Phone Unavailable Unavailable Unavailable Problems This patient has no known problems. Allergies, Adverse Reactions, Alerts This patient has no known allergies or adverse reactions. Medications This patient has no known medications. Encounters Start End Encounter Admission Attending Care Care Encounter Date/Time Date/Time Type Type Clinicians Facility Department ID 2018-11-02 2018-11-[address] [facility] [id number] 12:53:00 12:53:00 2018-09-07 2018-09-07 Outpatient [facility] [id number] 07:10:00 07:10:00 2018-08-17 2018-08-17 Outpatient [facility] [id number] 10:47:00 10:47:00
--- NOTE | 2018-11-06 10:44 | EDPHYS ---
Physician Documentation [facility] Name: Grzegorz Long Age: 73 yrs Sex: Male : 1945 Arrival Date: 11/06/2018 Time: 09:48 Bed 7 Private MD: Leon Hall V ED Physician Kristin Bell HPI: 11/06 10:36 This 73 yrs old Male presents to ER via Wheelchair with complaints of Abnormal ma2 Lab Results. 10:36 The patient or guardian complains of pain, that is acute. The symptoms are located at ma2 the C3. Onset: The symptoms/episode began/occurred gradually, 2 week(s) ago. Associated signs and symptoms: Pertinent negatives: left shoulder weakness x 10 days . The pain radiates to the thoracic spine. Severity of symptoms: At their worst the symptoms were moderate, in the emergency department the symptoms are unchanged. hx of liver ca, has been having neck pain x 2 weeks worsening and new left shoulder abduction weakness x 10 days. he has no fever and decline pain control in er, no trauma . Historical: - Allergies: 10:34 No Known Allergies; ph - Home Meds: 10:34 aspirin 81 mg Oral chew 1 tab once daily [Active]; Lopressor 100 mg Oral tab 1 tab once ph daily [Active]; metformin 500 mg Oral tab 1 tab 2 times per day [Active]; Plavix 75 mg Oral tab 1 tab once daily [Active]; pravastatin 80 mg Oral tab 1 tab once daily [Active]; - PMHx: 10:34 Cancer; LIVER; Diabetes - NIDDM; High Cholesterol; Hypertension; CVA; ph - Immunization history:: Adult Immunizations unknown. - Social history:: Smoking status: Patient/guardian denies using tobacco, Patient/guardian denies using alcohol, street drugs, The patient lives with family. - Ebola Screening: : No symptoms or risks identified at this time. - Family history:: not pertinent. ROS: 10:36 Constitutional: Negative for fever, chills, and weight loss. ma2 10:36 Neck: Positive for pain with movement, pain at rest, Negative for swelling, swollen nodes. 10:36 Neuro: Positive for weakness, Negative for headache, numbness, speech changes. 10:36 All other systems are negative. Exam: 10:36 Constitutional: This is a well developed, well nourished patient who is awake, alert, ma2 and in no acute distress. Head/Face: Normocephalic, atraumatic. Eyes: Pupils equal round and reactive to light, extra-ocular motions intact. Lids and lashes normal. Conjunctiva and sclera are non-icteric and not injected. Cornea within normal limits. Periorbital areas with no swelling, redness, or edema. ENT: Nares patent. No nasal discharge, no septal abnormalities noted. Tympanic membranes are normal and external auditory canals are clear. Oropharynx with no redness, swelling, or masses, exudates, or evidence of obstruction, uvula midline. Mucous membranes moist. Neck: Trachea midline, no thyromegaly or masses palpated, and no cervical lymphadenopathy. Supple, full range of motion without nuchal rigidity, or vertebral point tenderness. No Meningismus. Chest/axilla: Normal chest wall appearance and motion. Nontender with no deformity. No lesions are appreciated. Cardiovascular: Regular rate and rhythm with a normal S1 and S2. No gallops, murmurs, or rubs. Normal PMI, no JVD. No pulse deficits. Respiratory: Lungs have equal breath sounds bilaterally, clear to auscultation and percussion. No rales, rhonchi or wheezes noted. No increased work of breathing, no retractions or nasal flaring. Abdomen/GI: Soft, non-tender, with normal bowel sounds. No distension or tympany. No guarding or rebound. No evidence of tenderness throughout. MS/ Extremity: Pulses equal, no cyanosis. Neurovascular intact. Full, normal range of motion. 10:36 Neuro: Motor: strength is 4/5 in the left arm, all others are 5/5, Sensation: is normal. Vital Signs: 10:29 BP 115 / 65; Pulse 89; Resp 18; Temp 97.5; Pulse Ox 91% on R/A; Weight 73.48 kg; ph 12:18 BP 118 / 65; Pulse 81; Resp 16; Temp 97.8; Pulse Ox 95% on 2 lpm NC; ph MDM: 10:06 Patient medically screened. ma2 10:36 Differential diagnosis: C-Spine Fracture Cervical Disc Herniation Cervical Raiculopathy ma2 MRI showing pathological fracture on spine with cord compression. Data reviewed: vital signs, nurses notes. Counseling: I had a detailed discussion with the patient and/or guardian regarding: the historical points, exam findings, and any diagnostic results supporting the discharge/admit diagnosis, the presence of at least one elevated blood pressure reading (>120/80) during this emergency department visit, the need for outpatient follow up. Response to treatment: There is no appreciated change of the patient's symptoms at this time, declined pain medicine in er . 11:36 ED course: accepted by dr. Beal. ma2 11/06 10:20 Order name: CBC with Diff hi2 11/06 10:20 Order name: CMP ma2 11/06 10:20 Order name: ESR hi2 11/06 10:21 Order name: CRP hi2 Administered Medications: 12:17 Drug: MethylPrednisoLONE 2 mg/kg {Note: 145 mg given.} Route: IVP; Site: left ph antecubital; 13:00 Follow up: Response: No adverse reaction ph Disposition: 11/06/18 10:41 Transfer ordered to [facility]. Diagnosis are Other cord compression, Fracture of third cervical vertebra. - Reason for transfer: Higher level of care. - Accepting physician is [facility] neurosurgery . - Condition is Critical. - Problem is new. - Symptoms are unchanged. Signatures: Dispatcher [employer] EDEstela Francois RN RN Kristin Bell MD MD ma2 Corrections: (The following items were deleted from the chart) 11:17 10:41 11/06/2018 10:41 Transfer ordered to [facility]. ma2 Diagnosis is Other cord compression; Fracture of second cervical vertebra; Fracture of third cervical vertebra. Reason for transfer: Higher level of care. Accepting physician is [facility] neurosurgery . Condition is Critical. Problem is new. Symptoms are unchanged. ma2 13:08 11:17 11/06/2018 10:41 Transfer ordered to [facility]. ph Diagnosis is Other cord compression; Fracture of third cervical vertebra. Reason for transfer: Higher level of care. Accepting physician is [facility] neurosurgery . Condition is Critical. Problem is new. Symptoms are unchanged. ma2
--- NOTE | 2018-11-06 10:44 | ER ---
Nurse's Notes [facility] Name: Grzegorz Long Age: 73 yrs Sex: Male : 1945 Arrival Date: 11/06/2018 Time: 09:48 Bed 7 Private MD: Leon Hall V Diagnosis: Other cord compression;Fracture of third cervical vertebra Presentation: 11/06 10:24 Presenting complaint: Child states: Had outpatient MRI done this morning r/t ongoing ph neck pain, contacted by Dr Hall afterwards and told that pt needs to be taken to [facility] to see oncologist SIVA, recommended that pt be brought here for transfer due to nature of MRI findings. Transition of care: patient was not received from another setting of care. Onset of symptoms was November 06, 2018. Risk Assessment: Do you want to hurt yourself or someone else? Patient reports no desire to harm self or others. Initial Sepsis Screen: Does the patient meet any 2 criteria? No. Patient's initial sepsis screen is negative. Does the patient have a suspected source of infection? No. Patient's initial sepsis screen is negative. Care prior to arrival: None. 10:24 Method Of Arrival: Wheelchair ph 10:24 Acuity: DANN 3 ph Historical: - Allergies: 10:34 No Known Allergies; ph - Home Meds: 10:34 aspirin 81 mg Oral chew 1 tab once daily [Active]; Lopressor 100 mg Oral tab 1 tab once ph daily [Active]; metformin 500 mg Oral tab 1 tab 2 times per day [Active]; Plavix 75 mg Oral tab 1 tab once daily [Active]; pravastatin 80 mg Oral tab 1 tab once daily [Active]; - PMHx: 10:34 Cancer; LIVER; Diabetes - NIDDM; High Cholesterol; Hypertension; CVA; ph - Immunization history:: Adult Immunizations unknown. - Social history:: Smoking status: Patient/guardian denies using tobacco, Patient/guardian denies using alcohol, street drugs, The patient lives with family. - Ebola Screening: : No symptoms or risks identified at this time. - Family history:: not pertinent. Screenin:36 Abuse screen: Denies threats or abuse. Denies injuries from another. Nutritional ph screening: No deficits noted. Tuberculosis screening: No symptoms or risk factors identified. Fall Risk None identified. Assessment: 10:30 General: Appears in no apparent distress. comfortable, slender, well groomed, Behavior ph is calm, cooperative, appropriate for age, Denies fever, feeling ill. Pain: Complains of pain in left posterior aspect of neck and left lateral aspect of neck Pain radiates to left shoulder and left arm. Neuro: Level of Consciousness is awake, alert, obeys commands, Oriented to person, place, time, situation, Moves all extremities. Full function Speech is normal, Facial symmetry appears normal, Facial symmetry: tongue is midline, Reports weakness in left arm Denies dizziness, headache. Cardiovascular: Capillary refill < 3 seconds in bilateral fingers Patient's skin is warm and dry. Respiratory: Airway is patent Respiratory effort is even, unlabored, Respiratory pattern is regular, symmetrical. GI: No signs and/or symptoms were reported involving the gastrointestinal system. Patient currently denies nausea, vomiting. Derm: Skin is intact, is healthy with good turgor, Skin is pink, warm \T\ dry. Musculoskeletal: Circulation, motion, and sensation intact. Range of motion: intact in all extremities. 11:30 Reassessment: Patient appears in no apparent distress at this time. Patient and/or ph family updated on plan of care and expected duration. Pain level reassessed. Patient is alert, oriented x 3, equal unlabored respirations, skin warm/dry/pink. 12:30 Reassessment: Patient appears in no apparent distress at this time. Patient and/or ph family updated on plan of care and expected duration. Pain level reassessed. Patient is alert, oriented x 3, equal unlabored respirations, skin warm/dry/pink. Pt resting quietly, took home medication for pain, Tylenol #3 x 1 PO, report called to [facility] ED, awaiting EMS for transport. Vital Signs: 10:29 BP 115 / 65; Pulse 89; Resp 18; Temp 97.5; Pulse Ox 91% on R/A; Weight 73.48 kg; ph 12:18 BP 118 / 65; Pulse 81; Resp 16; Temp 97.8; Pulse Ox 95% on 2 lpm NC; ph ED Course: 09:48 Patient arrived in ED. mr 09:48 Leon Hall MD is Private Physician. mr 10:06 Kristin Bell MD is Attending Physician. ma2 10:24 Estela Hadley, RN is Primary Nurse. ph 10:28 Triage completed. ph 10:30 Patient has correct armband on for positive identification. Bed in low position. Call ph light in reach. Side rails up X 1. Pulse ox on. NIBP on. Door closed. Noise minimized. Warm blanket given. Pillow given. 10:35 Arm band placed on Patient placed in an exam room, on a stretcher. ph 11:00 No provider procedures requiring assistance completed. ph 13:05 Inserted saline lock: 20 gauge in left antecubital area, using aseptic technique. ph Patient transferred, IV remains in place. Administered Medications: 12:17 Drug: MethylPrednisoLONE 2 mg/kg {Note: 145 mg given.} Route: IVP; Site: left antecubital; 13:00 Follow up: Response: No adverse reaction ph Outcome: 10:41 ER care complete, transfer ordered by . ma2 13:08 Patient left the ED. ph 13:08 Transferred by ground EMS [place]. to [facility], Transfer form ph completed. X-rays sent w/ patient. 13:08 Condition: stable 13:08 Instructed on the need for transfer. Signatures: Elsie Beatty Estela Hadley, ONEIL RN Kristin Bell MD MD ma2
[2018-11-06 11:36] LABS: Absolute Lymphocytes (CBC) 0.6 K/uL (0.7-4.9); Basophils % 0.9 % (0-1.3); Eosinophils % 0.9 % (0-4.4); Hematocrit 39.2 % (39.6-49.0); Lymphocytes % 11.3 % (15.3-44.8); MPV 9.1 fL (7.6-11.3); Monocytes % 8.9 % (3.3-12.3); RBC Red Blood Cell Count 4.08 M/uL (4.33-5.43)
[2018-11-06 11:52] LABS: Bilirubin Total 0.6 mg/dL (0.2-1.0); C-Reactive Protein 10.5 mg/L (<3.00); Protein, Total 7.2 g/dL (6.4-8.2)
[2018-11-06] MEDS ORDERED: METHYLPREDNISOLONE 125 MG INJ ONE (11:52)
[2018-11-06] MEDS ORDERED: METHYLPREDNISOLONE 40 MG INJ ONE (11:52)
[2018-11-06 13:27] VITALS: BP 118/65; TEMP 97.8; O2SAT 95
== END 2018-11-06 13:08 | disposition short-term general hospital (02) ==
LOC: ER 09:46
DX: S12.200A Unspecified displaced fracture of third cervical vertebra, initial encounter for closed fracture (principal); G95.29 Other cord compression; C22.8 Malignant neoplasm of liver, primary, unspecified as to type; E11.9 Type 2 diabetes mellitus without complications; E78.00 Pure hypercholesterolemia, unspecified; I10 Essential (primary) hypertension; Z86.73 Personal history of transient ischemic attack (TIA), and cerebral infarction without residual deficits; Z79.84 Long term (current) use of oral hypoglycemic drugs; Z79.82 Long term (current) use of aspirin
CPT/HCPCS: 85025; 36415; 85652; 80053; 86140; J2930; J2920; 96374; 99285